=== PATIENT | female | born 1990 | race Caucasian/White ===

== ENCOUNTER → 2016-05-15 | Outpatient (CLI) | payer OTHER ==
[~2016-05-15] MED LIST: CLAR1TAB2 PO; DEPO INJECTION SC; GUMMCHW PO; HYDR12.55 PO; OMEP20TA PO; STELARA; STELARA SC
[2016-05-15 18:38] LABS: BASO % 0.5 % (0.0-1.0); EOS # 0.2 K/mm3 (0.0-0.50); EOS % 2.1 % (0.0-3.0); LARGE UNSTAINED CELL # 0.2 K/mm3 (0.0-0.4); LARGE UNSTAINED CELL % 2.3 % (0.0-4.0); LYMPH # 2.7 K/mm3 (1.5-6.5); LYMPH % 25.5 % (24.0-44.0); MEAN CORPUSCULAR HEMOGLOBIN 31.7 pg (27.0-33.0); MEAN CORPUSCULAR HGB CONC 34.4 g/dl (32.0-36.5); MEAN CORPUSCULAR VOLUME 92.1 fl (80.0-96.0); MONO # 0.5 K/mm3 (0.0-0.8); MONO % 4.3 % (0.0-5.0); NEUTROPHILS # 6.9 K/mm3 (1.8-7.7); NEUTROPHILS % 65.2 % (36.0-66.0); PLATELET COUNT, AUTOMATED 251 k/mm3 (150-450); RED CELL DISTRIBUTION WIDTH 11.9 % (11.5-14.5); WHITE BLOOD COUNT 10.6 K/mm3 (4.0-10.0)
[2016-05-15 19:07] LABS: ALBUMIN 3.8 GM/DL (3.2-5.2); ALBUMIN/GLOBULIN RATIO 1.09 (1.00-1.93); ALKALINE PHOSPHATASE 130 U/L (45-117); ALT/SGPT 29 U/L (12-78); ANION GAP 8 MEQ/L (8-16); AST/SGOT 13 U/L (15-37); BILIRUBIN,TOTAL 0.3 MG/DL (0.2-1.0); BLOOD UREA NITROGEN 13 MG/DL (7-18); CALCIUM LEVEL 9.6 MG/DL (8.5-10.1); CARBON DIOXIDE LEVEL 28 MEQ/L (21-32); CHLORIDE LEVEL 106 MEQ/L (98-107); CREATININE FOR GFR 0.69 MG/DL (0.55-1.02); FERRITIN 21 NG/ML (8-252); GAMMA GLUTAMYLTRANSPEPTIDASE 26 U/L (5-55); GLOMERULAR FILTRATION RATE > 60.0 (>60); GLUCOSE, FASTING 79 MG/DL (70-105); POTASSIUM SERUM 3.8 MEQ/L (3.5-5.1); SODIUM LEVEL 142 MEQ/L (136-145); TOTAL PROTEIN 7.3 GM/DL (6.4-8.2)
[2016-05-15 19:14] LABS: ERYTHROCYTE SEDIMENTATION RATE 41 mm/hr (0-20)
== END ==
LOC: M LAB 17:25
PROVIDERS: ATTEND Physician Assistant
DX: J01.90 Acute sinusitis, unspecified (principal); R53.83 Other fatigue; R74.0 Nonspecific elevation of levels of transaminase and lactic acid dehydrogenase [LDH]

== ENCOUNTER 2016-05-21 18:59 | Emergency (ER) | payer OTHER ==
[2016-05-21] MEDS ORDERED: ONDANSETRON 4MG/2ML VIAL (J2405) As Ordered ONE (21:44)
[2016-05-21] MEDS ORDERED: fentaNYL 100 MCG/2 ML INJECTION (J3010) As Ordered ONE (21:46)
[2016-05-21 21:56] LABS: BASO # 0.3 K/mm3 (0.0-0.2); BASO % 2.1 % (0.0-1.0); EOS # 0.3 K/mm3 (0.0-0.50); EOS % 2.2 % (0.0-3.0); LARGE UNSTAINED CELL # 0.2 K/mm3 (0.0-0.4); LARGE UNSTAINED CELL % 1.5 % (0.0-4.0); LYMPH # 4.4 K/mm3 (1.5-6.5); LYMPH % 28.3 % (24.0-44.0); MEAN CORPUSCULAR HEMOGLOBIN 30.7 pg (27.0-33.0); MEAN CORPUSCULAR HGB CONC 32.8 g/dl (32.0-36.5); MEAN CORPUSCULAR VOLUME 93.8 fl (80.0-96.0); MONO # 0.8 K/mm3 (0.0-0.8); MONO % 5.1 % (0.0-5.0); NEUTROPHILS % 60.8 % (36.0-66.0); PLATELET COUNT, AUTOMATED 298 k/mm3 (150-450); RED CELL DISTRIBUTION WIDTH 13.2 % (11.5-14.5); WHITE BLOOD COUNT 14.8 K/mm3 (4.0-10.0)
[2016-05-21] MEDS ORDERED: ISOVUE-370 76% 100ML VIAL (Q9967) As Ordered ONE (22:01)
[2016-05-21 22:39] LABS: ALBUMIN 3.9 GM/DL (3.2-5.2); ALKALINE PHOSPHATASE 121 U/L (45-117); ALT/SGPT 31 U/L (12-78); ANION GAP 10 MEQ/L (8-16); AST/SGOT 16 U/L (15-37); BILIRUBIN,DIRECT 0.1 MG/DL (0.0-0.2); BILIRUBIN,TOTAL 0.2 MG/DL (0.2-1.0); BLOOD UREA NITROGEN 19 MG/DL (7-18); CARBON DIOXIDE LEVEL 23 MEQ/L (21-32); CHLORIDE LEVEL 107 MEQ/L (98-107); CREATININE FOR GFR 0.73 MG/DL (0.55-1.02); GLOMERULAR FILTRATION RATE > 60.0 (>60); GLUCOSE, FASTING 86 MG/DL (70-105); POTASSIUM SERUM 4.1 MEQ/L (3.5-5.1); SODIUM LEVEL 140 MEQ/L (136-145); TOTAL PROTEIN 7.8 GM/DL (6.4-8.2)
--- NOTE | 2016-05-21 23:40 | REPUSA ---
CT of the abdomen and pelvis with contrast Clinical statement: Pain. Technique: Multiple axial CT images were obtained from the base of the lungs through the floor of the pelvis utilizing 5 mm axial slices after administration of nonionic intravenous contrast. Coronal an d sagittal reconstructions were also obtained. No comparison is available. Findings: Chest: The visualized lung bases are clear. Abdomen: The liver, spleen, pancreas, kidneys, and adrenal glands are unremarkable. The aorta is with in normal limits. There is no evidence of abdominal lymphadenopathy or ascites. Pelvis: The bowel is unremarkable, with no obstructive or inflammatory changes. The appendix is rob l. The urinary bladder is within normal limits. The other pelvic structures appear grossly intact. Th ere is no evidence of pelvic lymphadenopathy or ascites. Bones: There are no suspicious osseous abnormalities seen. Impression: Unremarkable CT examination of the abdomen and pelvis.
--- NOTE | 2016-05-22 00:24 | EDDOCDS ---
Physician Documentation [facility] Name: Goldie Gunter Age: 25 yrs Sex: Female : 1990 Arrival Date: 05/21/2016 Time: 18:59 Bed I5 / M5 Private MD: CHRISTA CARPENTER Disposition: 05/22/16 00:09 Discharged to Home/Self Care. Impression: Abdominal and pelvic pain - RUQ. - Condition is Stable. - Discharge Instructions: Abdominal Pain, Adult. - Medication Reconciliation, Local Pharmacy Hours form. - Follow up: CHRISTA CARPENTER; When: Call to arrange an appointment; Reason: Recheck today's complaints, Continuance of care. Follow up: Juventino Sanabria; When: Call to arrange an appointment; Reason: Recheck today's complaints, Continuance of care. - Problem is an acute exacerbation. - Symptoms have improved. - Notes: Keep hydrated Use Ibuprofen and Tylenol, as needed, for pain Return to the ED for any further concerns Historical: - Allergies: Morphineseizure; - Home Meds: 1. hydrochlorothiazide 12.5 mg Oral tab 1 tab once daily 2. omeprazole 20 mg Oral cpDR 1 cap 2 times per day - PMHx: GERD; Hypertension; psorasis; - PSHx: Cholecystectomy; baske procedure for kidney stone; - Social history: Smoking status: Patient states was never smoker of tobacco. No barriers to communication noted, The patient speaks fluent Bolivian, Speaks appropriately for age. - Family history: Not pertinent. - : The pt / caregiver states he / she is not on anticoagulants. Home medication list is obtained from the patient. - Exposure Risk Screening:: None identified. 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 3 in. (160.02 cm) (R); Pain 8/10; 22:30 Pain 2/10; dsf 22:31 BP 121 / 71; Pulse 86; Resp 18; Temp 98.3; Pulse Ox 96% ; Pain 2/10; ajs 05/22 00:20 BP 128 / 76; Pulse 94; Resp 20; Temp 97.8(TE); Pulse Ox 99% on R/A; Pain 5/10; dsf 05/21 19:01 Body Mass Index 41.63 (106.59 kg, 160.02 cm) gr2 MDM: 05/21 21:40 NS 0.9% 1000 ml IV at bolus once ordered. le 21:40 NS 0.9% 1000 ml IV at 100 mL/hr continuous ordered. le 21:40 Ondansetron 4 mg IVP once ordered. le 21:40 IV Saline Lock ordered. le 21:40 Undress patient appropriately for examination ordered. le 21:40 fentaNYL (PF) 25 mcg IVP once ordered. le 21:41 Basic Metabolic Profile Ordered. EDMS 21:41 CBC with Diff Ordered. EDMS 21:41 Lipase Ordered. EDMS 21:41 Liver Profile Ordered. EDMS 21:41 CT ABD & PELVIS: IV Contrast Only Ordered. EDMS 21:42 NOTHING BY MOUTH+DIET ordered. EDMS 22:42 Financial registration complete. ks 22:42 [facility] Payment Agreement was scanned into [employer] and attached to record. [email or web address] 22:47 Basic Metabolic Profile Reviewed. le 22:47 CBC with Diff Reviewed. le 22:47 Liver Profile Reviewed. le 22:47 Lipase Reviewed. le Administered Medications: 21:54 Drug: NS 0.9% 1000 ml [sodium chloride 0.9 % intravenous solution] Route: IV; Rate: af2 bolus; Site: left antecubital; 23:36 Follow up: IV Status: Completed infusion; IV Intake: 1000ml dsf 21:54 Drug: Ondansetron 4 mg [ondansetron HCl 2 mg/mL intravenous solution (2 mL)] Route: af2 IVP; Site: left antecubital; 21:54 Drug: fentaNYL (PF) 25 mcg [fentanyl (PF) 50 mcg/mL injection solution (0.5 mL)] Route: af2 IVP; Site: left antecubital; 22:30 Follow up: Pain 2/10 Adult dsf 23:36 Drug: NS 0.9% 1000 ml [sodium chloride 0.9 % injection solution] Route: IV; Rate: 100 dsf mL/hr; Site: left antecubital; 05/22 00:22 Follow up: IV Status: Infusion discontinued; IV Intake: 150ml dsf Signatures: Dispatcher [employer] EDDwayne Kimbrough, RN RN Vidya Betancourt, Kym Taylor RN RN dsf Crane, Kelsi, RN RN kc3 Cehri Gonzalez, Reg Reg ks16 Gia Felipe RN af2 The chart was reviewed and I authenticate all verbal orders and agree with the evaluation and treatment provided.Attachments: 05/21 22:42 [facility] Payment Agreement [email or web address] MTDD
--- NOTE | 2016-05-22 00:24 | EDDOCDS ---
Nurse's Notes [facility] Name: Goldie Gunter Age: 25 yrs Sex: Female : 1990 Arrival Date: 05/21/2016 Time: 18:59 Bed I5 / M5 Private MD: CHRISTA CARPENTER Diagnosis: Abdominal and pelvic pain-RUQ Presentation: 05/21 19:16 Presenting complaint: Patient states: pt states that 3 days ago had a call from her cz provider that her liver enzymes were elevated pt states history of liver enzymes intermittently being elevaed. today pt states increasing abdominal pain"feels like my liver is going to explode". Risk factors: the patient reports no vaginal bleeding. Adult Sepsis Screening: The patient does not have new or worsening altered mentation. Patient's respiratory rate is less than 22. Systolic blood pressure is greater than 100. Patient has a qSOFA score of 0- Negative Sepsis Screen. Suicide/Homicide risk assessment- the patient denies having any suicidal and/or homicidal ideations and does not present with any other emotional, behavioral or mental health complaints. Status: Patient is not a program services planner or dependent. Transition of care: patient was not received from another setting of care. 19:16 Acuity: SERA Level 3 cz 19:16 Method Of Arrival: Walkin/Carried/Asstd Triage Assessment: 19:20 General: Appears in no apparent distress. Pain: Location: abdomen Pain currently is 8 cz out of 10 on a pain scale. HIV screening NA for this visit Offered previously. 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 hydrochlorothiazide 12.5 mg Oral tab 1 tab once daily 2. omeprazole 20 mg Oral cpDR 1 cap 2 times per day - PMHx: GERD; Hypertension; psorasis; - PSHx: Cholecystectomy; baske procedure for kidney stone; - Social history: Smoking status: Patient states was never smoker of tobacco. No barriers to communication noted, The patient speaks fluent Palestinian, Speaks appropriately for age. - Family history: Not pertinent. - : The pt / caregiver states he / she is not on anticoagulants. Home medication list is obtained from the patient. - Exposure Risk Screening:: None identified. Screenin:54 Screening information is obtained from the patient. Fall risk: No risks identified. kc3 Assistance ADL's: requires no assistance with activities of daily living. Abuse/DV Screen: The patient / caregiver reports he/she is: not in a situation that causes fear, pain or injury. Nutritional screening: No deficits noted. home support is adequate. 05/22 00:20 Advance Directives: Currently, there is no health care proxy. dsf Assessment: 05/21 21:53 General: Appears in no apparent distress, comfortable, Behavior is appropriate for age, kc3 cooperative. Pain: Location: right upper quadrant. Neurological: Level of Consciousness is awake, alert, obeys commands, Oriented to person, place, time. Respiratory: Airway is patent Respiratory effort is even, unlabored. GI: Abdomen is obese, Reports upper abd pain, nausea. Derm: Skin is pink, warm & dry. Musculoskeletal: Circulation, motion, and sensation intact. 22:43 General: Appears in no apparent distress, comfortable, Behavior is appropriate for age, dsf cooperative. Pain: Location: right upper quadrant Pain currently is 2 out of 10 on a pain scale. Neurological: Level of Consciousness is awake, alert. Cardiovascular: Capillary refill < 3 seconds. Respiratory: Airway is patent Respiratory effort is even, unlabored, Respiratory pattern is regular, symmetrical. Derm: Skin is pink, warm & dry. 05/22 00:20 Adult Sepsis Screening: The patient does not have new or worsening altered mentation. dsf Patient's respiratory rate is less than 22. Systolic blood pressure is greater than 100. Patient has a qSOFA score of 0- Negative Sepsis Screen. General: Appears in no apparent distress, comfortable, Behavior is appropriate for age, cooperative. Pain: Location: right upper quadrant Pain currently is 5 out of 10 on a pain scale. Neurological: Level of Consciousness is awake, alert, Oriented to person, place, time. Cardiovascular: No deficits noted. Respiratory: No deficits noted. GI: Abdomen is obese, Bowel sounds present X 4 quads. Abd is soft and non tender X 4 quads. Derm: Skin is pink, warm & dry. Vital Signs: 05/21 19:01 BP 145 / 96; Pulse 112; Resp 18 S; Temp 98.7(O); Pulse Ox 98% on R/A; Weight 106.59 kg gr2 (R); Height 5 ft. 3 in. (160.02 cm) (R); Pain 8/10; 22:30 Pain 2/10; dsf 22:31 BP 121 / 71; Pulse 86; Resp 18; Temp 98.3; Pulse Ox 96% ; Pain 2/10; ajs 05/22 00:20 BP 128 / 76; Pulse 94; Resp 20; Temp 97.8(TE); Pulse Ox 99% on R/A; Pain 5/10; dsf 05/21 19:01 Body Mass Index 41.63 (106.59 kg, 160.02 cm) gr2 Vitals: 05/21 19: Log In Time: May 21, 2016 at 19:01. gr2 ED Course: 19:01 Patient visited by George Odonnell. gr2 19:01 CHRISTA CARPENTER is Private Physician. gr2 19:01 Patient moved to Waiting gr2 19:02 Patient visited by George Odonnell. gr2 19:02 Patient moved to Pre RCE gr2 19:19 Triage Initiated cz 21:08 Patient moved to Triage 1 mdr 21:28 [facility] le 21:31 Patient visited by Vidya Ball FNP. le 21:31 Patient visited by Vidya Ball FNP. le 21:41 Patient moved to I5 / sls1 21:52 Basic Metabolic Profile Sent. kc3 21:52 CBC with Diff Sent. kc3 21:52 Lipase Sent. kc3 21:52 Liver Profile Sent. kc3 21:53 Inserted saline lock: 20 gauge in left antecubital area and blood collected. The kc3 patient tolerated the procedure well. Labs drawn. (by ED staff). Sent per order to lab. 21:55 The patient / caregiver is instructed regarding the plan of care and ED course. kc3 22:31 Warm blanket given. ajs 22:32 Patient visited by Alaina Luna. ajs 22:42 [facility] Payment Agreement was scanned into [employer] and attached to record. ks16 22:44 Patient visited by Kym Torres RN. dsf 23:[address] dsf 23:08 Patient moved to I5 / dsf 23:44 Patient visited by Alaina Luna. ajs 05/22 00:08 CHRISTA CARPENTER is Referral Physician. le 00:09 Juventino Sanabria is Referral Physician. le 00:15 CT ABD & PELVIS: IV Contrast Only Returned. EDMS 00:20 Discontinued lock intact, bleeding controlled, pressure dressing applied, No dsf redness/swelling at site. No procedures done that require assistance. Administered Medications: 05/21 21:54 Drug: NS 0.9% 1000 ml [sodium chloride 0.9 % intravenous solution] Route: IV; Rate: af2 bolus; Site: left antecubital; 23:36 Follow up: IV Status: Completed infusion; IV Intake: 1000ml dsf 21:54 Drug: Ondansetron 4 mg [ondansetron HCl 2 mg/mL intravenous solution (2 mL)] Route: af2 IVP; Site: left antecubital; 21:54 Drug: fentaNYL (PF) 25 mcg [fentanyl (PF) 50 mcg/mL injection solution (0.5 mL)] Route: af2 IVP; Site: left antecubital; 22:30 Follow up: Pain 2/10 Adult dsf 23:36 Drug: NS 0.9% 1000 ml [sodium chloride 0.9 % injection solution] Route: IV; Rate: 100 dsf mL/hr; Site: left antecubital; 05/22 00:22 Follow up: IV Status: Infusion discontinued; IV Intake: 150ml dsf Intake: 05/21 23:36 IV: 1000.00ml; Total: 1000.00ml. dsf 05/22 00:22 IV: 150.00ml; Total: 1150.00ml. dsf Order Results: Lab Order: Basic Metabolic Profile; [facility] 05/21/16 21:45 Test: GLUCOSE, FASTING; Value: 86; Range: 70-105; Units: MG/DL; Status: F Test: BLOOD UREA NITROGEN; Value: 19; Range: 7-18; Abnormal: Above high normal; Units: MG/DL; Status: F Test: CREATININE FOR GFR; Value: 0.73; Range: 0.55-1.02; Units: MG/DL; Status: F Test: GLOMERULAR FILTRATION RATE; Value: > 60.0; Range: >60; Status: F Test: SODIUM LEVEL; Value: 140; Range: 136-145; Units: MEQ/L; Status: F Test: POTASSIUM SERUM; Value: 4.1; Range: 3.5-5.1; Units: MEQ/L; Status: F Test: CHLORIDE LEVEL; Value: 107; Range: 98-107; Units: MEQ/L; Status: F Test: CARBON DIOXIDE LEVEL; Value: 23; Range: 21-32; Units: MEQ/L; Status: F Test: ANION GAP; Value: 10; Range: 8-16; Units: MEQ/L; Status: F Test: CALCIUM LEVEL; Value: 9.0; Range: 8.5-10.1; Units: MG/DL; Status: F Test Note: ; Units are mL/min/1.73 m2 Chronic Kidney Disease Staging per NKF: Stage I & II GFR >=60 Normal to Mildly Decreased Stage III GFR 30-59 Moderately Decreased Stage IV GFR 15-29 Severely Decreased Stage V GFR <15 Very Little GFR Left ESRD GFR <15 on RAILROAD TRACK INSPECTOR Lab Order: CBC with Diff; SPEC'M 05/21/16 21:46 Test: WHITE BLOOD COUNT; Value: 14.8; Range: 4.0-10.0; Abnormal: Above high normal; Units: K/mm3; Status: F Test: RED BLOOD COUNT; Value: 4.83; Range: 4.00-5.40; Units: M/mm3; Status: F Test: HEMOGLOBIN; Value: 14.8; Range: 12.0-16.0; Units: g/dl; Status: F Test: HEMATOCRIT; Value: 45.3; Range: 36.0-47.0; Units: %; Status: F Test: MEAN CORPUSCULAR VOLUME; Value: 93.8; Range: 80.0-96.0; Units: fl; Status: F Test: MEAN CORPUSCULAR HEMOGLOBIN; Value: 30.7; Range: 27.0-33.0; Units: pg; Status: F Test: MEAN CORPUSCULAR HGB CONC; Value: 32.8; Range: 32.0-36.5; Units: g/dl; Status: F Test: RED CELL DISTRIBUTION WIDTH; Value: 13.2; Range: 11.5-14.5; Units: %; Status: F Test: PLATELET COUNT, AUTOMATED; Value: 298; Range: 150-450; Units: k/mm3; Status: F Test: NEUTROPHILS %; Value: 60.8; Range: 36.0-66.0; Units: %; Status: F Test: LYMPH %; Value: 28.3; Range: 24.0-44.0; Units: %; Status: F Test: MONO %; Value: 5.1; Range: 0.0-5.0; Abnormal: Above high normal; Units: %; Status: F Test: EOS %; Value: 2.2; Range: 0.0-3.0; Units: %; Status: F Test: BASO %; Value: 2.1; Range: 0.0-1.0; Abnormal: Above high normal; Units: %; Status: F Test: LARGE UNSTAINED CELL %; Value: 1.5; Range: 0.0-4.0; Units: %; Status: F Test: NEUTROPHILS #; Value: 9.0; Range: 1.8-7.7; Abnormal: Above high normal; Units: K/mm3; Status: F Test: LYMPH #; Value: 4.4; Range: 1.5-6.5; Units: K/mm3; Status: F Test: MONO #; Value: 0.8; Range: 0.0-0.8; Units: K/mm3; Status: F Test: EOS #; Value: 0.3; Range: 0.0-0.50; Units: K/mm3; Status: F Test: BASO #; Value: 0.3; Range: 0.0-0.2; Abnormal: Above high normal; Units: K/mm3; Status: F Test: LARGE UNSTAINED CELL #; Value: 0.2; Range: 0.0-0.4; Units: K/mm3; Status: F Lab Order: Lipase; SPEC'M 05/21/16 21:45 Test: LIPASE; Value: 160; Range: 73-393; Units: U/L; Status: F Lab Order: Liver Profile; SPEC'M 05/21/16 21:45 Test: AST/SGOT; Value: 16; Range: 15-37; Units: U/L; Status: F Test: ALT/SGPT; Value: 31; Range: 12-78; Units: U/L; Status: F Test: ALKALINE PHOSPHATASE; Value: 121; Range: 45-117; Abnormal: Above high normal; Units: U/L; Status: F Test: BILIRUBIN,TOTAL; Value: 0.2; Range: 0.2-1.0; Units: MG/DL; Status: F Test: BILIRUBIN,DIRECT; Value: 0.1; Range: 0.0-0.2; Units: MG/DL; Status: F Test: TOTAL PROTEIN; Value: 7.8; Range: 6.4-8.2; Units: GM/DL; Status: F Test: ALBUMIN; Value: 3.9; Range: 3.2-5.2; Units: GM/DL; Status: F Test: ALBUMIN/GLOBULIN RATIO; Value: 1.00; Range: 1.00-1.93; Status: F Radiology Order: CT ABD & PELVIS: IV Contrast Only Test: CT ABD & PELVIS: IV Contrast Only REASON FOR EXAMINATION: elev liver enzymes, pain; ; CT of the abdomen and pelvis with contrast; Clinical statement: Pain.; Technique: Multiple axial CT images were obtained from the base of the lungs through the floor of the; pelvis utilizing 5 mm axial slices after administration of nonionic intravenous contrast. Coronal an; d sagittal reconstructions were also obtained.; No comparison is available.; Findings:; Chest: The visualized lung bases are clear.; Abdomen: The liver, spleen, pancreas, kidneys, and adrenal glands are unremarkable. The aorta is with; in normal limits. There is no evidence of abdominal lymphadenopathy or ascites.; Pelvis: The bowel is unremarkable, with no obstructive or inflammatory changes. The appendix is rob; l. The urinary bladder is within normal limits. The other pelvic structures appear grossly intact. Th; ere is no evidence of pelvic lymphadenopathy or ascites.; Bones: There are no suspicious osseous abnormalities seen.; Impression: Unremarkable CT examination of the abdomen and pelvis.; ; Outcome: 00:09 Discharge ordered by Provider. le 00:20 Discharge Assessment: Patient awake, alert and oriented x 3. No cognitive and/or dsf functional deficits noted. Patient verbalized understanding of disposition instructions. patient administered narcotics - yes. Pt provided with safe discharge. The following High Risk Discharge criteria are identified: None. Discharged to home ambulatory, with significant other. Condition: stable. Discharge instructions given to patient, Instructed on discharge instructions, follow up and referral plans. medication usage, Demonstrated understanding of instructions, Pt was receptive of discharge instructions/ teaching. CT Study completed. Property sent home with patient. 00:23 Patient left the ED. dsf Signatures: Dispatcher [employer] EDDwayne Kimbrough, RN RN cz Vidya Ball, BUSGIRL Kym Jones RN RN dsf Alaina Luna Shannon RN RN sls1 George Odonnell gr2 Gia FelipeRN RN af2 Dylon Merritt, CHRISTINA GUSSET MAKER Katty Mendosa RN RN kc3 Cheri Gonzalez, Reg Reg ks16 MTDD
--- NOTE | 2016-05-24 01:24 | EDDOCDS ---
Physician Documentation [facility] Name: Goldie Gunter Age: 25 yrs Sex: Female : 1990 Arrival Date: 05/21/2016 Time: 18:59 Bed I5 / M5 Private MD: CHRISTA CARPENTER Disposition: 05/22/16 00:09 Discharged to Home/Self Care. Impression: Abdominal and pelvic pain - RUQ. - Condition is Stable. - Discharge Instructions: Abdominal Pain, Adult. - Medication Reconciliation, Local Pharmacy Hours form. - Follow up: CHRISTA CARPENTER; When: Call to arrange an appointment; Reason: Recheck today's complaints, Continuance of care. Follow up: Juventino Sanabria; When: Call to arrange an appointment; Reason: Recheck today's complaints, Continuance of care. - Problem is an acute exacerbation. - Symptoms have improved. - Notes: Keep hydrated Use Ibuprofen and Tylenol, as needed, for pain Return to the ED for any further concerns Historical: - Allergies: Morphineseizure; - Home Meds: 1. hydrochlorothiazide 12.5 mg Oral tab 1 tab once daily 2. omeprazole 20 mg Oral cpDR 1 cap 2 times per day - PMHx: GERD; Hypertension; psorasis; - PSHx: Cholecystectomy; baske procedure for kidney stone; - Social history: Smoking status: Patient states was never smoker of tobacco. No barriers to communication noted, The patient speaks fluent [place] Islander, Speaks appropriately for age. - Family history: Not pertinent. - : The pt / caregiver states he / she is not on anticoagulants. Home medication list is obtained from the patient. - Exposure Risk Screening:: None identified. 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 3 in. (160.02 cm) (R); Pain 8/10; 22:30 Pain 2/10; dsf 22:31 BP 121 / 71; Pulse 86; Resp 18; Temp 98.3; Pulse Ox 96% ; Pain 2/10; ajs 05/22 00:20 BP 128 / 76; Pulse 94; Resp 20; Temp 97.8(TE); Pulse Ox 99% on R/A; Pain 5/10; dsf 05/21 19:01 Body Mass Index 41.63 (106.59 kg, 160.02 cm) gr2 MDM: 05/21 21:40 NS 0.9% 1000 ml IV at bolus once ordered. le 21:40 NS 0.9% 1000 ml IV at 100 mL/hr continuous ordered. le 21:40 Ondansetron 4 mg IVP once ordered. le 21:40 IV Saline Lock ordered. le 21:40 Undress patient appropriately for examination ordered. le 21:40 fentaNYL (PF) 25 mcg IVP once ordered. le 21:41 Basic Metabolic Profile Ordered. EDMS 21:41 CBC with Diff Ordered. EDMS 21:41 Lipase Ordered. EDMS 21:41 Liver Profile Ordered. EDMS 21:41 CT ABD & PELVIS: IV Contrast Only Ordered. EDMS 21:42 NOTHING BY MOUTH+DIET ordered. EDMS 22:42 Financial registration complete. [facility] 22:42 [facility] Payment Agreement was scanned into [employer] and attached to record. [email or web address] 22:47 Basic Metabolic Profile Reviewed. le 22:47 CBC with Diff Reviewed. le 22:47 Liver Profile Reviewed. le 22:47 Lipase Reviewed. le 05/22 11:31 T-Sheet-- Draft Copy was scanned into [employer] and attached to record. gb Administered Medications: 05/21 21:54 Drug: NS 0.9% 1000 ml [sodium chloride 0.9 % intravenous solution] Route: IV; Rate: af2 bolus; Site: left antecubital; 23:36 Follow up: IV Status: Completed infusion; IV Intake: 1000ml dsf 21:54 Drug: Ondansetron 4 mg [ondansetron HCl 2 mg/mL intravenous solution (2 mL)] Route: af2 IVP; Site: left antecubital; 21:54 Drug: fentaNYL (PF) 25 mcg [fentanyl (PF) 50 mcg/mL injection solution (0.5 mL)] Route: af2 IVP; Site: left antecubital; 22:30 Follow up: Pain 2/10 Adult dsf 23:36 Drug: NS 0.9% 1000 ml [sodium chloride 0.9 % injection solution] Route: IV; Rate: 100 dsf mL/hr; Site: left antecubital; 05/22 00:22 Follow up: IV Status: Infusion discontinued; IV Intake: 150ml dsf Signatures: Dispatcher [employer] Dwayne Kendall RN RN cz Barnhardt, Gloria, Reg Reg gb Vidya Ball, SUPERVISOR SIGN SHOP Kym Jones RN RN dsf Crane, Kelsi, RN RN kc3 Cheri Gonzalez, Reg Reg ks16 Gia Felipe RN af2 The chart was reviewed and I authenticate all verbal orders and agree with the evaluation and treatment provided.Attachments: 05/21 22:42 [facility] Payment Agreement [email or web address] 05/22 11:31 T-Sheet-- Draft Copy gb Chart Complete MTDD
--- NOTE | 2016-05-24 01:24 | EDDOCDS ---
Physician Documentation [facility] Name: Goldie Gunter Age: 25 yrs Sex: Female : 1990 Arrival Date: 05/21/2016 Time: 18:59 Bed I5 / M5 Private MD: CHRISTA CARPENTER Disposition: 05/22/16 00:09 Discharged to Home/Self Care. Impression: Abdominal and pelvic pain - RUQ. - Condition is Stable. - Discharge Instructions: Abdominal Pain, Adult. - Medication Reconciliation, Local Pharmacy Hours form. - Follow up: CHRISTA CARPENTER; When: Call to arrange an appointment; Reason: Recheck today's complaints, Continuance of care. Follow up: Juventino Sanabria; When: Call to arrange an appointment; Reason: Recheck today's complaints, Continuance of care. - Problem is an acute exacerbation. - Symptoms have improved. - Notes: Keep hydrated Use Ibuprofen and Tylenol, as needed, for pain Return to the ED for any further concerns Historical: - Allergies: Morphineseizure; - Home Meds: 1. hydrochlorothiazide 12.5 mg Oral tab 1 tab once daily 2. omeprazole 20 mg Oral cpDR 1 cap 2 times per day - PMHx: GERD; Hypertension; psorasis; - PSHx: Cholecystectomy; baske procedure for kidney stone; - Social history: Smoking status: Patient states was never smoker of tobacco. No barriers to communication noted, The patient speaks fluent Guatemalan, Speaks appropriately for age. - Family history: Not pertinent. - : The pt / caregiver states he / she is not on anticoagulants. Home medication list is obtained from the patient. - Exposure Risk Screening:: None identified. 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 3 in. (160.02 cm) (R); Pain 8/10; 22:30 Pain 2/10; dsf 22:31 BP 121 / 71; Pulse 86; Resp 18; Temp 98.3; Pulse Ox 96% ; Pain 2/10; ajs 05/22 00:20 BP 128 / 76; Pulse 94; Resp 20; Temp 97.8(TE); Pulse Ox 99% on R/A; Pain 5/10; dsf 05/21 19:01 Body Mass Index 41.63 (106.59 kg, 160.02 cm) gr2 MDM: 05/21 21:40 NS 0.9% 1000 ml IV at bolus once ordered. le 21:40 NS 0.9% 1000 ml IV at 100 mL/hr continuous ordered. le 21:40 Ondansetron 4 mg IVP once ordered. le 21:40 IV Saline Lock ordered. le 21:40 Undress patient appropriately for examination ordered. le 21:40 fentaNYL (PF) 25 mcg IVP once ordered. le 21:41 Basic Metabolic Profile Ordered. EDMS 21:41 CBC with Diff Ordered. EDMS 21:41 Lipase Ordered. EDMS 21:41 Liver Profile Ordered. EDMS 21:41 CT ABD & PELVIS: IV Contrast Only Ordered. EDMS 21:42 NOTHING BY MOUTH+DIET ordered. EDMS 22:42 Financial registration complete. [facility] 22:42 [facility] Payment Agreement was scanned into Vontu and attached to record. ks16 22:47 Basic Metabolic Profile Reviewed. le 22:47 CBC with Diff Reviewed. le 22:47 Liver Profile Reviewed. le 22:47 Lipase Reviewed. le 05/22 11:31 T-Sheet-- Draft Copy was scanned into Vontu and attached to record. gb Administered Medications: 05/21 21:54 Drug: NS 0.9% 1000 ml [sodium chloride 0.9 % intravenous solution] Route: IV; Rate: af2 bolus; Site: left antecubital; 23:36 Follow up: IV Status: Completed infusion; IV Intake: 1000ml dsf 21:54 Drug: Ondansetron 4 mg [ondansetron HCl 2 mg/mL intravenous solution (2 mL)] Route: af2 IVP; Site: left antecubital; 21:54 Drug: fentaNYL (PF) 25 mcg [fentanyl (PF) 50 mcg/mL injection solution (0.5 mL)] Route: af2 IVP; Site: left antecubital; 22:30 Follow up: Pain 2/10 Adult dsf 23:36 Drug: NS 0.9% 1000 ml [sodium chloride 0.9 % injection solution] Route: IV; Rate: 100 dsf mL/hr; Site: left antecubital; 05/22 00:22 Follow up: IV Status: Infusion discontinued; IV Intake: 150ml dsf Signatures: Dispatcher MedHost Dwayne Kendall RN RN cz Barnhardt, Gloria, Reg Reg gb Vidya Ball, AWNING MAKER AND INSTALLER Kym Jones RN RN dsf Crane, Kelsi, RN RN kc3 Cheri Gonzalez, Reg Reg ks16 Gia Felipe RN af2 The chart was reviewed and I authenticate all verbal orders and agree with the evaluation and treatment provided.Attachments: 05/21 22:42 [facility] [place] [facility] Payment Agreement [email or web address] 05/22 11:31 T-Sheet-- Draft Copy gb Chart Complete MTDD
--- NOTE | 2016-05-24 01:24 | EDDOCDS ---
Nurse's Notes [facility] Name: Goldie Gunter Age: 25 yrs Sex: Female : 1990 Arrival Date: 05/21/2016 Time: 18:59 Bed I5 / M5 Private MD: CHRISTA CARPENTER Diagnosis: Abdominal and pelvic pain-RUQ Presentation: 05/21 19:16 Presenting complaint: Patient states: pt states that 3 days ago had a call from her cz provider that her liver enzymes were elevated pt states history of liver enzymes intermittently being elevaed. today pt states increasing abdominal pain"feels like my liver is going to explode". Risk factors: the patient reports no vaginal bleeding. Adult Sepsis Screening: The patient does not have new or worsening altered mentation. Patient's respiratory rate is less than 22. Systolic blood pressure is greater than 100. Patient has a qSOFA score of 0- Negative Sepsis Screen. Suicide/Homicide risk assessment- the patient denies having any suicidal and/or homicidal ideations and does not present with any other emotional, behavioral or mental health complaints. Status: Patient is not a service learning coordinator or dependent. Transition of care: patient was not received from another setting of care. 19:16 Acuity: SERA Level 3 cz 19:16 Method Of Arrival: Walkin/Carried/Asstd Triage Assessment: 19:20 General: Appears in no apparent distress. Pain: Location: abdomen Pain currently is 8 cz out of 10 on a pain scale. HIV screening NA for this visit Offered previously. 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 hydrochlorothiazide 12.5 mg Oral tab 1 tab once daily 2. omeprazole 20 mg Oral cpDR 1 cap 2 times per day - PMHx: GERD; Hypertension; psorasis; - PSHx: Cholecystectomy; baske procedure for kidney stone; - Social history: Smoking status: Patient states was never smoker of tobacco. No barriers to communication noted, The patient speaks fluent Kuwaiti, Speaks appropriately for age. - Family history: Not pertinent. - : The pt / caregiver states he / she is not on anticoagulants. Home medication list is obtained from the patient. - Exposure Risk Screening:: None identified. Screenin:54 Screening information is obtained from the patient. Fall risk: No risks identified. kc3 Assistance ADL's: requires no assistance with activities of daily living. Abuse/DV Screen: The patient / caregiver reports he/she is: not in a situation that causes fear, pain or injury. Nutritional screening: No deficits noted. home support is adequate. 05/22 00:20 Advance Directives: Currently, there is no health care proxy. dsf Assessment: 05/21 21:53 General: Appears in no apparent distress, comfortable, Behavior is appropriate for age, kc3 cooperative. Pain: Location: right upper quadrant. Neurological: Level of Consciousness is awake, alert, obeys commands, Oriented to person, place, time. Respiratory: Airway is patent Respiratory effort is even, unlabored. GI: Abdomen is obese, Reports upper abd pain, nausea. Derm: Skin is pink, warm & dry. Musculoskeletal: Circulation, motion, and sensation intact. 22:43 General: Appears in no apparent distress, comfortable, Behavior is appropriate for age, dsf cooperative. Pain: Location: right upper quadrant Pain currently is 2 out of 10 on a pain scale. Neurological: Level of Consciousness is awake, alert. Cardiovascular: Capillary refill < 3 seconds. Respiratory: Airway is patent Respiratory effort is even, unlabored, Respiratory pattern is regular, symmetrical. Derm: Skin is pink, warm & dry. 05/22 00:20 Adult Sepsis Screening: The patient does not have new or worsening altered mentation. dsf Patient's respiratory rate is less than 22. Systolic blood pressure is greater than 100. Patient has a qSOFA score of 0- Negative Sepsis Screen. General: Appears in no apparent distress, comfortable, Behavior is appropriate for age, cooperative. Pain: Location: right upper quadrant Pain currently is 5 out of 10 on a pain scale. Neurological: Level of Consciousness is awake, alert, Oriented to person, place, time. Cardiovascular: No deficits noted. Respiratory: No deficits noted. GI: Abdomen is obese, Bowel sounds present X 4 quads. Abd is soft and non tender X 4 quads. Derm: Skin is pink, warm & dry. Vital Signs: 05/21 19:01 BP 145 / 96; Pulse 112; Resp 18 S; Temp 98.7(O); Pulse Ox 98% on R/A; Weight 106.59 kg gr2 (R); Height 5 ft. 3 in. (160.02 cm) (R); Pain 8/10; 22:30 Pain 2/10; dsf 22:31 BP 121 / 71; Pulse 86; Resp 18; Temp 98.3; Pulse Ox 96% ; Pain 2/10; ajs 05/22 00:20 BP 128 / 76; Pulse 94; Resp 20; Temp 97.8(TE); Pulse Ox 99% on R/A; Pain 5/10; dsf 05/21 19:01 Body Mass Index 41.63 (106.59 kg, 160.02 cm) gr2 Vitals: 05/21 19: Log In Time: May 21, 2016 at 19:01. gr2 ED Course: 19:01 Patient visited by George Odonnell. gr2 19:01 CHRISTA CARPENTER is Private Physician. gr2 19:01 Patient moved to Waiting gr2 19:02 Patient visited by George Odonnell. gr2 19:02 Patient moved to Pre RCE gr2 19:19 Triage Initiated cz 21:08 Patient moved to Triage 1 mdr 21:28 [facility] le 21:31 Patient visited by Vidya Ball FNP. le 21:31 Patient visited by Vidya Ball FNP. le 21:41 Patient moved to I5 / sls1 21:52 Basic Metabolic Profile Sent. kc3 21:52 CBC with Diff Sent. kc3 21:52 Lipase Sent. kc3 21:52 Liver Profile Sent. kc3 21:53 Inserted saline lock: 20 gauge in left antecubital area and blood collected. The kc3 patient tolerated the procedure well. Labs drawn. (by ED staff). Sent per order to lab. 21:55 The patient / caregiver is instructed regarding the plan of care and ED course. kc3 22:31 Warm blanket given. ajs 22:32 Patient visited by Alaina Luna. ajs 22:42 [facility] Payment Agreement was scanned into ink[employer] and attached to record. ks16 22:44 Patient visited by Kym Torres RN. dsf 23:[address] dsf 23:08 Patient moved to I5 / dsf 23:44 Patient visited by Alaina Luna. ajs 05/22 00:08 CHRISTA CARPENTER is Referral Physician. le 00:09 Juventino Sanabria is Referral Physician. le 00:15 CT ABD & PELVIS: IV Contrast Only Returned. EDMS 00:20 Discontinued lock intact, bleeding controlled, pressure dressing applied, No dsf redness/swelling at site. No procedures done that require assistance. 11:31 T-Sheet-- Draft Copy was scanned into [employer] and attached to record. gb Administered Medications: 05/21 21:54 Drug: NS 0.9% 1000 ml [sodium chloride 0.9 % intravenous solution] Route: IV; Rate: af2 bolus; Site: left antecubital; 23:36 Follow up: IV Status: Completed infusion; IV Intake: 1000ml dsf 21:54 Drug: Ondansetron 4 mg [ondansetron HCl 2 mg/mL intravenous solution (2 mL)] Route: af2 IVP; Site: left antecubital; 21:54 Drug: fentaNYL (PF) 25 mcg [fentanyl (PF) 50 mcg/mL injection solution (0.5 mL)] Route: af2 IVP; Site: left antecubital; 22:30 Follow up: Pain 2/10 Adult dsf 23:36 Drug: NS 0.9% 1000 ml [sodium chloride 0.9 % injection solution] Route: IV; Rate: 100 dsf mL/hr; Site: left antecubital; 05/22 00:22 Follow up: IV Status: Infusion discontinued; IV Intake: 150ml dsf Intake: 05/21 23:36 IV: 1000.00ml; Total: 1000.00ml. dsf 05/22 00:22 IV: 150.00ml; Total: 1150.00ml. dsf Order Results: Lab Order: Basic Metabolic Profile; SPEC'M 05/21/16 21:45 Test: GLUCOSE, FASTING; Value: 86; Range: 70-105; Units: MG/DL; Status: F Test: BLOOD UREA NITROGEN; Value: 19; Range: 7-18; Abnormal: Above high normal; Units: MG/DL; Status: F Test: CREATININE FOR GFR; Value: 0.73; Range: 0.55-1.02; Units: MG/DL; Status: F Test: GLOMERULAR FILTRATION RATE; Value: > 60.0; Range: >60; Status: F Test: SODIUM LEVEL; Value: 140; Range: 136-145; Units: MEQ/L; Status: F Test: POTASSIUM SERUM; Value: 4.1; Range: 3.5-5.1; Units: MEQ/L; Status: F Test: CHLORIDE LEVEL; Value: 107; Range: 98-107; Units: MEQ/L; Status: F Test: CARBON DIOXIDE LEVEL; Value: 23; Range: 21-32; Units: MEQ/L; Status: F Test: ANION GAP; Value: 10; Range: 8-16; Units: MEQ/L; Status: F Test: CALCIUM LEVEL; Value: 9.0; Range: 8.5-10.1; Units: MG/DL; Status: F Test Note: ; Units are mL/min/1.73 m2 Chronic Kidney Disease Staging per NKF: Stage I & II GFR >=60 Normal to Mildly Decreased Stage III GFR 30-59 Moderately Decreased Stage IV GFR 15-29 Severely Decreased Stage V GFR <15 Very Little GFR Left ESRD GFR <15 on WILLOW WORKER Lab Order: CBC with Diff; SPEC'M 05/21/16 21:46 Test: WHITE BLOOD COUNT; Value: 14.8; Range: 4.0-10.0; Abnormal: Above high normal; Units: K/mm3; Status: F Test: RED BLOOD COUNT; Value: 4.83; Range: 4.00-5.40; Units: M/mm3; Status: F Test: HEMOGLOBIN; Value: 14.8; Range: 12.0-16.0; Units: g/dl; Status: F Test: HEMATOCRIT; Value: 45.3; Range: 36.0-47.0; Units: %; Status: F Test: MEAN CORPUSCULAR VOLUME; Value: 93.8; Range: 80.0-96.0; Units: fl; Status: F Test: MEAN CORPUSCULAR HEMOGLOBIN; Value: 30.7; Range: 27.0-33.0; Units: pg; Status: F Test: MEAN CORPUSCULAR HGB CONC; Value: 32.8; Range: 32.0-36.5; Units: g/dl; Status: F Test: RED CELL DISTRIBUTION WIDTH; Value: 13.2; Range: 11.5-14.5; Units: %; Status: F Test: PLATELET COUNT, AUTOMATED; Value: 298; Range: 150-450; Units: k/mm3; Status: F Test: NEUTROPHILS %; Value: 60.8; Range: 36.0-66.0; Units: %; Status: F Test: LYMPH %; Value: 28.3; Range: 24.0-44.0; Units: %; Status: F Test: MONO %; Value: 5.1; Range: 0.0-5.0; Abnormal: Above high normal; Units: %; Status: F Test: EOS %; Value: 2.2; Range: 0.0-3.0; Units: %; Status: F Test: BASO %; Value: 2.1; Range: 0.0-1.0; Abnormal: Above high normal; Units: %; Status: F Test: LARGE UNSTAINED CELL %; Value: 1.5; Range: 0.0-4.0; Units: %; Status: F Test: NEUTROPHILS #; Value: 9.0; Range: 1.8-7.7; Abnormal: Above high normal; Units: K/mm3; Status: F Test: LYMPH #; Value: 4.4; Range: 1.5-6.5; Units: K/mm3; Status: F Test: MONO #; Value: 0.8; Range: 0.0-0.8; Units: K/mm3; Status: F Test: EOS #; Value: 0.3; Range: 0.0-0.50; Units: K/mm3; Status: F Test: BASO #; Value: 0.3; Range: 0.0-0.2; Abnormal: Above high normal; Units: K/mm3; Status: F Test: LARGE UNSTAINED CELL #; Value: 0.2; Range: 0.0-0.4; Units: K/mm3; Status: F Lab Order: Lipase; SPEC'M 05/21/16 21:45 Test: LIPASE; Value: 160; Range: 73-393; Units: U/L; Status: F Lab Order: Liver Profile; SPEC'M 05/21/16 21:45 Test: AST/SGOT; Value: 16; Range: 15-37; Units: U/L; Status: F Test: ALT/SGPT; Value: 31; Range: 12-78; Units: U/L; Status: F Test: ALKALINE PHOSPHATASE; Value: 121; Range: 45-117; Abnormal: Above high normal; Units: U/L; Status: F Test: BILIRUBIN,TOTAL; Value: 0.2; Range: 0.2-1.0; Units: MG/DL; Status: F Test: BILIRUBIN,DIRECT; Value: 0.1; Range: 0.0-0.2; Units: MG/DL; Status: F Test: TOTAL PROTEIN; Value: 7.8; Range: 6.4-8.2; Units: GM/DL; Status: F Test: ALBUMIN; Value: 3.9; Range: 3.2-5.2; Units: GM/DL; Status: F Test: ALBUMIN/GLOBULIN RATIO; Value: 1.00; Range: 1.00-1.93; Status: F Radiology Order: CT ABD & PELVIS: IV Contrast Only Test: CT ABD & PELVIS: IV Contrast Only REASON FOR EXAMINATION: elev liver enzymes, pain; ; CT of the abdomen and pelvis with contrast; Clinical statement: Pain.; Technique: Multiple axial CT images were obtained from the base of the lungs through the floor of the; pelvis utilizing 5 mm axial slices after administration of nonionic intravenous contrast. Coronal an; d sagittal reconstructions were also obtained.; No comparison is available.; Findings:; Chest: The visualized lung bases are clear.; Abdomen: The liver, spleen, pancreas, kidneys, and adrenal glands are unremarkable. The aorta is with; in normal limits. There is no evidence of abdominal lymphadenopathy or ascites.; Pelvis: The bowel is unremarkable, with no obstructive or inflammatory changes. The appendix is rob; l. The urinary bladder is within normal limits. The other pelvic structures appear grossly intact. Th; ere is no evidence of pelvic lymphadenopathy or ascites.; Bones: There are no suspicious osseous abnormalities seen.; Impression: Unremarkable CT examination of the abdomen and pelvis.; ; Outcome: 00:09 Discharge ordered by Provider. le 00:20 Discharge Assessment: Patient awake, alert and oriented x 3. No cognitive and/or dsf functional deficits noted. Patient verbalized understanding of disposition instructions. patient administered narcotics - yes. Pt provided with safe discharge. The following High Risk Discharge criteria are identified: None. Discharged to home ambulatory, with significant other. Condition: stable. Discharge instructions given to patient, Instructed on discharge instructions, follow up and referral plans. medication usage, Demonstrated understanding of instructions, Pt was receptive of discharge instructions/ teaching. CT Study completed. Property sent home with patient. 00:23 Patient left the ED. dsf Signatures: Dispatcher MedHost EDMS Dwayne Mercado, RN RN cz Dilcia Gaming, Reg Reg gb Vidya Ball, HIGH SCHOOL TUTOR HIGH SCHOOL TUTOR Kym Mosquera,RN RN dsf Alaina Luna Shannon, RN RN sls1 George Odonnell gr2 Gia FelipeRN RN af2 Dylon Merritt, OPTIONS ADVISOR OPTIONS ADVISOR Katty Mendosa RN RN kc3 Cheri Gonzalez, Reg Reg ks16 Chart Complete MTDD
== END 2016-05-22 00:23 | disposition home or self-care (01) ==
LOC: M ED 18:59
DX: R10.11 Right upper quadrant pain (principal); K21.9 Gastro-esophageal reflux disease without esophagitis; I10 Essential (primary) hypertension; L40.9 Psoriasis, unspecified; Z79.899 Other long term (current) drug therapy; Z88.8 Allergy status to other drugs, medicaments and biological substances
CPT/HCPCS: 36415; 74177; 80048; 80076; 83690; 85025; 96361; 96374; 96375; 99284; J2405; J3010; Q9967

== ENCOUNTER 2016-07-14 13:47 | Emergency (ER) | payer OTHER ==
[~2016-07-14] VITALS: Ht 160 cm; Wt 105.2 kg
[2016-07-14] MEDS ORDERED: ONDANSETRON 4 MG ORAL DISINTEGRATING TAB (S0181) PO ONE (16:15)
[2016-07-14] MEDS ORDERED: ACETAMINOPHEN 325 MG TAB PO ONE (16:15)
[2016-07-14 16:24] LABS: BASO % 0.3 % (0.0-1.0); EOS # 0.2 K/mm3 (0.0-0.50); LARGE UNSTAINED CELL # 0.1 K/mm3 (0.0-0.4); LYMPH # 2.4 K/mm3 (1.5-6.5); LYMPH % 24.1 % (24.0-44.0); MEAN CORPUSCULAR HEMOGLOBIN 32.4 pg (27.0-33.0); MEAN CORPUSCULAR HGB CONC 34.5 g/dl (32.0-36.5); MONO # 0.5 K/mm3 (0.0-0.8); MONO % 5.5 % (0.0-5.0); NEUTROPHILS # 6.5 K/mm3 (1.8-7.7); NEUTROPHILS % 67.1 % (36.0-66.0); PLATELET COUNT, AUTOMATED 229 k/mm3 (150-450); RED CELL DISTRIBUTION WIDTH 12.7 % (11.5-14.5); WHITE BLOOD COUNT 9.7 K/mm3 (4.0-10.0)
[2016-07-14 16:27] LABS: CONTROL LINE UCG INT CTR LINE PRESENT
[2016-07-14 17:54] LABS: ALBUMIN 3.7 GM/DL (3.2-5.2); ALBUMIN/GLOBULIN RATIO 1.12 (1.00-1.93); ALKALINE PHOSPHATASE 111 U/L (45-117); ALT/SGPT 31 U/L (12-78); ANION GAP 8 MEQ/L (8-16); AST/SGOT 30 U/L (15-37); BILIRUBIN,DIRECT 0.1 MG/DL (0.0-0.2); BILIRUBIN,TOTAL 0.5 MG/DL (0.2-1.0); BLOOD UREA NITROGEN 8 MG/DL (7-18); CALCIUM LEVEL 8.5 MG/DL (8.5-10.1); CARBON DIOXIDE LEVEL 27 MEQ/L (21-32); CHLORIDE LEVEL 108 MEQ/L (98-107); CREATININE FOR GFR 0.63 MG/DL (0.55-1.02); GLOMERULAR FILTRATION RATE > 60.0 (>60); GLUCOSE, FASTING 87 MG/DL (70-105); SODIUM LEVEL 143 MEQ/L (136-145)
[2016-07-14 17:55] LABS: POTASSIUM SERUM 4.4 MEQ/L (3.5-5.1)
[2016-07-14] MEDS ORDERED: ZOFR4TAB3 PO (18:18)
[2016-07-14 18:21] VITALS: BP 128/82
[2016-07-14] MEDS ORDERED: MAGNESIUM CITRATE 300 ML BTL PO ONE (18:30)
--- NOTE | 2016-07-15 08:37 | REP ---
ABDOMINAL SERIES RADIOGRAPHS: CLINICAL: Right sided abdominal pain. TECHNIQUE: Upright and supine views of the abdomen and pelvis. FINDINGS: Upright view of the abdomen demonstrates no free air below the diaphragm to suspect pneumoperitoneum and no evidence for bowel obstruction. The bowel gas pattern is relatively nonspecific. No organomegaly. No abnormal calcifications. Skeletal structures are intact. Evidence for prior cholecystectomy. IMPRESSION: Nonspecific abdominal series radiographs. Signed by Carlos Melendez MD 07/19/2016 11:05 A
== END 2016-07-14 18:24 | disposition home or self-care (01) ==
LOC: M ED 15:40
DX: K59.00 Constipation, unspecified (principal); R11.0 Nausea; K21.9 Gastro-esophageal reflux disease without esophagitis; L43.9 Lichen planus, unspecified; Z87.442 Personal history of urinary calculi; Z88.5 Allergy status to narcotic agent; Z79.899 Other long term (current) drug therapy

== ENCOUNTER 2016-09-26 13:54 | Emergency (ER) | payer BC, OTHER ==
[~2016-09-26] VITALS: Ht 160 cm; Wt 104.3 kg
[~2016-09-26 13:54] MED LIST changes: +ZOFR4TAB3 PO
[2016-09-26] MEDS ORDERED: IBUP600T26 PO (14:04)
[2016-09-26] MEDS ORDERED: KETOROLAC 30 MG/ML VIAL (J1885) IV ONE (14:30)
[2016-09-26] MEDS ORDERED: ONDANSETRON 4MG/2ML VIAL (J2405) IV ONE (14:30)
[2016-09-26] MEDS ORDERED: NS 1,000 ML IV ONE (14:30)
[2016-09-26 14:52] LABS: BASO % 0.5 % (0.0-1.0); EOS # 0.2 K/mm3 (0.0-0.50); EOS % 2.2 % (0.0-3.0); LARGE UNSTAINED CELL # 0.1 K/mm3 (0.0-0.4); LARGE UNSTAINED CELL % 1.4 % (0.0-4.0); LYMPH # 2.9 K/mm3 (1.5-6.5); LYMPH % 32.7 % (24.0-44.0); MEAN CORPUSCULAR HEMOGLOBIN 33.2 pg (27.0-33.0); MEAN CORPUSCULAR HGB CONC 35.2 g/dl (32.0-36.5); MEAN CORPUSCULAR VOLUME 94.3 fl (80.0-96.0); MONO # 0.5 K/mm3 (0.0-0.8); MONO % 5.5 % (0.0-5.0); NEUTROPHILS # 4.8 K/mm3 (1.8-7.7); NEUTROPHILS % 57.6 % (36.0-66.0); PLATELET COUNT, AUTOMATED 261 k/mm3 (150-450); RED CELL DISTRIBUTION WIDTH 12.6 % (11.5-14.5); WHITE BLOOD COUNT 8.4 K/mm3 (4.0-10.0)
[2016-09-26 15:15] LABS: ALBUMIN 3.8 GM/DL (3.2-5.2); ALBUMIN/GLOBULIN RATIO 1.06 (1.00-1.93); ALKALINE PHOSPHATASE 120 U/L (45-117); ALT/SGPT 32 U/L (12-78); ANION GAP 4 MEQ/L (8-16); AST/SGOT 12 U/L (15-37); BILIRUBIN,DIRECT < 0.1 MG/DL (0.0-0.2); BILIRUBIN,TOTAL 0.4 MG/DL (0.2-1.0); BLOOD UREA NITROGEN 6 MG/DL (7-18); CALCIUM LEVEL 9.3 MG/DL (8.5-10.1); CARBON DIOXIDE LEVEL 31 MEQ/L (21-32); CHLORIDE LEVEL 108 MEQ/L (98-107); CREATININE FOR GFR 0.56 MG/DL (0.55-1.02); GLOMERULAR FILTRATION RATE > 60.0 (>60); GLUCOSE, FASTING 85 MG/DL (70-105); POTASSIUM SERUM 4.1 MEQ/L (3.5-5.1); SODIUM LEVEL 143 MEQ/L (136-145); TOTAL PROTEIN 7.4 GM/DL (6.4-8.2)
[2016-09-26] MEDS ORDERED: ZOFR4TAB3 PO (15:26)
[2016-09-26] MEDS ORDERED: ULTR50TA PO (15:26)
--- NOTE | 2016-09-26 15:27 | REP ---
CT study of the abdomen and pelvis without IV or oral contrast: Renal stone protocol. History: Right-sided pain. Comparison study: June 13, 2016. Findings: Preliminary digital panel raiser operator radiograph shows clips in the right upper quadrant and a normal bowel gas pattern. The lung bases are clear. The liver and the spleen are normal in size, homogeneous in texture. No adrenal lesion is seen. No pancreatic abnormalities observed. There is no evidence of hydronephrosis on either side. There is an intrarenal calculus in the left kidney, upper pole measuring 3 mm in diameter. No other intrarenal calculus is seen. No bladder or ureteral calculus is observed. No uterine or adnexal abnormality is seen. Normal appendix is seen in the right lower quadrant. No abdominal wall defect is observed. Bone window settings show no bony destructive lesion. Impression: Intrarenal calculus 3 mm in size in the upper pole of the left kidney without evidence of hydronephrosis. No ureteral calculus is seen. Otherwise unremarkable CT study abdomen and pelvis. The patient is status post cholecystectomy. Signed by Justino Joshi MD 09/26/2016 04:02 P
[2016-09-26 15:32] VITALS: BP 136/85
== END 2016-09-26 15:39 | disposition home or self-care (01) ==
LOC: M ED 14:21
DX: N20.0 Calculus of kidney (principal); Z87.442 Personal history of urinary calculi; Z79.899 Other long term (current) drug therapy; Z88.5 Allergy status to narcotic agent
CPT/HCPCS: 74176; 80048; 80076; 81001; 81025; 83690; 85025; 96374; 96375; 99284; J1885; J2405

== ENCOUNTER → 2017-02-07 | Outpatient (REF) | payer OTHER ==
[~2017-02-07] MED LIST changes: +IBUP-1022 PO; +ULTR50TA8 PO
== END ==
LOC: M SFHCLERA 17:17
PROVIDERS: ATTEND Nurse Practitioner Family
DX: R30.0 Dysuria (principal)

== ENCOUNTER 2017-04-21 17:33 | Emergency (ER) | payer OTHER ==
[~2017-04-21] VITALS: Ht 160 cm; Wt 106.8 kg
[2017-04-21 17:33] VITALS: BP 141/87
[2017-04-21] MEDS ORDERED: COSE1INJ3 SC (17:42)
[2017-04-21] MEDS ORDERED: IBUP-1022 PO (18:31)
--- NOTE | 2017-04-21 18:48 | REP ---
Right ankle series: Four views. History: Injury in a fall. Findings: Four views of the right ankle are compared with the August 30, 2012 prior study. Ankle mortise is intact. No fracture is seen. Impression: Negative right ankle views. Signed by Justino Joshi MD 04/21/2017 09:43 P
== END 2017-04-21 19:58 | disposition home or self-care (01) ==
LOC: M ED 17:33
DX: S93.401A Sprain of unspecified ligament of right ankle, initial encounter (principal); W19.XXXA Unspecified fall, initial encounter; Y92.099 Unspecified place in other non-institutional residence as the place of occurrence of the external cause; Y93.9 Activity, unspecified; Y99.9 Unspecified external cause status; I10 Essential (primary) hypertension; K21.9 Gastro-esophageal reflux disease without esophagitis; Z79.899 Other long term (current) drug therapy; Z88.5 Allergy status to narcotic agent

== ENCOUNTER 2017-07-17 11:30 | Emergency (ER) | payer BC, OTHER ==
[2017-07-17] MEDS: METOCLOPRAMIDE INJ 10MG/2ML VIAL (J2765) IV (13:45)
[2017-07-17] MEDS: NS 1,000 ML IV (13:45)
[2017-07-17 14:08] LABS: BASO # 0.1 10^3/uL (0.0-0.2); BASO % 0.6 % (0.0-1.0); EOS # 0.1 10^3/uL (0.0-0.50); EOS % 1.2 % (0.0-3.0); HEMATOCRIT 41.6 % (36.0-47.0); HEMOGLOBIN 14.5 g/dl (12.0-16.0); IMMATURE GRANULOCYTE % 0.3 % (0-3.0); LYMPH # 2.9 10^3/uL (1.5-6.5); MEAN CORPUSCULAR HEMOGLOBIN 31.9 pg (27.0-33.0); MEAN CORPUSCULAR HGB CONC 34.9 g/dl (32.0-36.5); MEAN CORPUSCULAR VOLUME 91.6 fl (80.0-96.0); MONO # 0.7 10^3/uL (0.0-0.8); MONO % 6.3 % (0.0-5.0); NEUTROPHILS # 7.4 10^3/uL (1.8-7.7); NEUTROPHILS % 65.6 % (36.0-66.0); PLATELET COUNT, AUTOMATED 255 10^3/uL (150-450); RED BLOOD COUNT 4.54 10^6/uL (4.00-5.40); RED CELL DISTRIBUTION WIDTH 12.1 % (11.5-14.5); WHITE BLOOD COUNT 11.3 10^3/uL (4.0-10.0)
[2017-07-17 14:36] LABS: CONTROL LINE HCG INT CTR LINE PRESENT; HCG, SERUM QUALITATIVE NEGATIVE (NEGATIVE)
[2017-07-17 14:45] LABS: ALKALINE PHOSPHATASE 118 U/L (45-117); ALT/SGPT 27 U/L (12-78); ANION GAP 9 MEQ/L (8-16); AST/SGOT 16 U/L (7-37); BILIRUBIN,DIRECT 0.1 MG/DL (0.0-0.2); BILIRUBIN,TOTAL 0.4 MG/DL (0.2-1.0); BLOOD UREA NITROGEN 13 MG/DL (7-18); CARBON DIOXIDE LEVEL 24 MEQ/L (21-32); CHLORIDE LEVEL 108 MEQ/L (98-107); CREATININE FOR GFR 0.64 MG/DL (0.55-1.30); GLOMERULAR FILTRATION RATE > 60.0 (>60); GLUCOSE, FASTING 92 MG/DL (70-100); LIPASE 120 U/L (73-393); POTASSIUM SERUM 3.8 MEQ/L (3.5-5.1); SODIUM LEVEL 141 MEQ/L (136-145)
[2017-07-17] MEDS ORDERED: AUGMENTIN 875 MG TAB PO (15:15)
== END 2017-07-17 15:24 | disposition home or self-care (01) ==
LOC: M ED 11:30
DX: A08.4 Viral intestinal infection, unspecified (principal); I10 Essential (primary) hypertension; K21.9 Gastro-esophageal reflux disease without esophagitis; Z88.5 Allergy status to narcotic agent; Z79.899 Other long term (current) drug therapy
CPT/HCPCS: J2765

== ENCOUNTER → 2017-08-04 | Outpatient (CLI) | payer BC ==
[2017-08-04 19:22] LABS: FREE T3 2.5 PG/ML (2.2-4.0); FREE T4 0.89 NG/DL (0.76-1.46)
[2017-08-07 00:07] LABS: EBV VIRAL CAPSID AG IgM <36.0 U/mL (0.0-35.9)
[2017-08-07 00:07] LABS: EBV AB TO NUCLEAR ANTIGEN <18.0 U/mL (0.0-17.9)
== END ==
LOC: M LAB 16:02
DX: E03.9 Hypothyroidism, unspecified (principal); F41.9 Anxiety disorder, unspecified; E55.9 Vitamin D deficiency, unspecified
CPT/HCPCS: 84443

== ENCOUNTER → 2018-02-09 | Outpatient (CLI) | payer BC ==
[2018-02-09 15:00] LABS: HCG, SERUM QUANTITATIVE 18 MIU/ML
== END ==
LOC: M LAB 13:27
DX: O03.4 Incomplete spontaneous abortion without complication (principal); Z3A.00 Weeks of gestation of pregnancy not specified
CPT/HCPCS: 84702

== ENCOUNTER → 2018-02-25 | Outpatient (REF) | payer BC ==
[2018-02-26 14:31] LABS: CHLAMYDIA DNA AMPLIFICATION NEGATIVE (NEGATIVE); GC DNA AMPLIFICATION NEGATIVE (NEGATIVE)
== END ==
LOC: M SFHCLERA 20:03
DX: R10.9 Unspecified abdominal pain (principal)
CPT/HCPCS: 87086

== ENCOUNTER → 2018-05-18 | Outpatient (REF) | payer BC ==
[~2018-05-18] MED LIST changes: +AUGM875T28 PO; +COSE1INJ3 SC; +ZOFR4TAB14 PO; -ZOFR4TAB3 PO
[2018-05-18 14:06] LABS: HEMATOCRIT 38.8 % (36.0-47.0); HEMOGLOBIN 12.6 g/dl (12.0-15.5); MEAN CORPUSCULAR HEMOGLOBIN 29.6 pg (27.0-33.0); MEAN CORPUSCULAR HGB CONC 32.5 g/dl (32.0-36.5); MEAN CORPUSCULAR VOLUME 91.1 fl (80.0-96.0); PLATELET COUNT, AUTOMATED 239 10^3/uL (150-450); RED BLOOD COUNT 4.26 10^6/uL (4.00-5.40); WHITE BLOOD COUNT 7.2 10^3/uL (4.0-10.0)
[2018-05-18 14:29] LABS: ALBUMIN 3.6 GM/DL (3.2-5.2); ALT/SGPT 36 U/L (12-78); BILIRUBIN,TOTAL 0.3 MG/DL (0.2-1.0); BLOOD UREA NITROGEN 8 MG/DL (7-18); CARBON DIOXIDE LEVEL 27 MEQ/L (21-32); CHLORIDE LEVEL 105 MEQ/L (98-107); CREATININE FOR GFR 0.56 MG/DL (0.55-1.30); GLOMERULAR FILTRATION RATE > 60.0 (>60); GLUCOSE, FASTING 75 MG/DL (70-100); POTASSIUM SERUM 4.3 MEQ/L (3.5-5.1); SODIUM LEVEL 141 MEQ/L (136-145)
[2018-05-18 14:52] LABS: HEPATITIS B SURFACE ANTIGEN NEGATIVE (NEGATIVE)
[2018-05-18 15:18] LABS: HEPATITIS C VIRUS ABY INDEX 0.1 INDEX (<0.8)
[2018-05-18 15:19] LABS: HEPATITIS B CORE ANTIBODY IGM NEGATIVE (NEGATIVE)
[2018-05-18 15:20] LABS: HIV 1&2 SCREEN CENTAUR NEGATIVE (NEGATIVE)
[2018-05-18 15:21] LABS: HEPATITIS A ANTIBODY IGM NEGATIVE (NEGATIVE)
[2018-05-20 11:22] LABS: HEPATITIS B SURFACE ANTIBODY NEGATIVE (POSITIVE)
== END ==
LOC: M SFHCPLAZ 10:57
PROVIDERS: ATTEND Dermatology
DX: Z51.81 Encounter for therapeutic drug level monitoring (principal); Z79.899 Other long term (current) drug therapy

== ENCOUNTER 2018-06-03 10:49 | Outpatient (CLI) | payer BC ==
[~2018-06-03] VITALS: Ht 160 cm; Wt 111.0 kg
[2018-06-03 10:55] VITALS: BP 140/98
[2018-06-03] MEDS ORDERED: diphenhydrAMINE 25MG PO PRIOR TO INFUSION PO ONE (11:00)
[2018-06-03] MEDS ORDERED: inFLIXimab INJECTION 600 MG in NS 190 ML IV ONE (11:00)
[2018-06-03] MEDS ORDERED: NS 1,000 ML IV SCH (11:00)
[2018-06-03] MEDS ORDERED: ACETAMINOPHEN 650MG PO PRIOR TO INFUSION PO ONE (11:00)
[2018-06-03] MEDS ORDERED: FILTER 1.2 MICRON (ADULT TPN/MANNITOL/REMICADE) XX ONE (11:00)
[2018-06-03] MEDS ORDERED: dexameTHASONE 20 MG/5 ML VIAL (J1100) As Ordered ONE (11:06)
[2018-06-03] MEDS ORDERED: dexameTHASONE 20 MG IV PRIOR TO INFUSION IV ONE (11:15)
[2018-06-03 15:05] VITALS: BP 147/92
== END 2018-06-03 15:05 | disposition home or self-care (01) ==
LOC: M INFU 10:49
PROVIDERS: ATTEND Internal Medicine Rheumatology
DX: L40.0 Psoriasis vulgaris (principal); Z88.5 Allergy status to narcotic agent
CPT/HCPCS: 96413; 96415; J1100; J1745

== ENCOUNTER 2018-06-22 12:38 | Outpatient (CLI) | payer BC ==
[~2018-06-22] VITALS: Ht 160 cm; Wt 111.0 kg
[2018-06-22 12:45] VITALS: BP 139/72
[2018-06-22] MEDS ORDERED: NS 1,000 ML IV SCH (13:00)
[2018-06-22] MEDS ORDERED: inFLIXimab INJECTION 600 MG in NS 190 ML IV ONE (13:00)
[2018-06-22] MEDS ORDERED: diphenhydrAMINE 25MG PO PRIOR TO INFUSION PO ONE (13:00)
[2018-06-22] MEDS ORDERED: FILTER 1.2 MICRON (ADULT TPN/MANNITOL/REMICADE) XX ONE (13:00)
[2018-06-22] MEDS ORDERED: ACETAMINOPHEN 650MG PO PRIOR TO INFUSION PO ONE (13:00)
[2018-06-22] MEDS ORDERED: dexameTHASONE 20 MG IV PRIOR TO INFUSION IV ONE (13:00)
[2018-06-22 16:12] VITALS: BP 127/82
== END 2018-06-22 16:15 | disposition home or self-care (01) ==
LOC: M INFU 12:38
PROVIDERS: ATTEND Internal Medicine Rheumatology
DX: L40.0 Psoriasis vulgaris (principal); Z88.5 Allergy status to narcotic agent; Z79.899 Other long term (current) drug therapy
CPT/HCPCS: 96375; 96413; 96415; J1100; J1745

== ENCOUNTER 2018-08-03 11:59 | Outpatient (CLI) | payer BC ==
[~2018-08-03] VITALS: Ht 160 cm; Wt 111.0 kg
[2018-08-03 12:13] VITALS: BP 130/92
[2018-08-03] MEDS ORDERED: FILTER 1.2 MICRON (ADULT TPN/MANNITOL/REMICADE) XX ONE (12:15)
[2018-08-03] MEDS ORDERED: NS 1,000 ML IV SCH (12:15)
[2018-08-03] MEDS ORDERED: diphenhydrAMINE 25MG PO PRIOR TO INFUSION PO ONE (12:30)
[2018-08-03] MEDS ORDERED: dexameTHASONE 20 MG IV PRIOR TO INFUSION IV ONE (12:30)
[2018-08-03] MEDS ORDERED: ACETAMINOPHEN 650MG PO PRIOR TO INFUSION PO ONE (12:30)
[2018-08-03] MEDS ORDERED: inFLIXimab INJECTION 600 MG in NS 190 ML IV ONE (13:00)
[2018-08-03 13:30] VITALS: BP 123/83
[2018-08-03 13:45] VITALS: BP 129/69
[2018-08-03 15:30] VITALS: BP 122/80
== END 2018-08-03 15:30 | disposition home or self-care (01) ==
LOC: M INFU 11:59
PROVIDERS: ATTEND Internal Medicine Rheumatology
DX: L40.0 Psoriasis vulgaris (principal); Z88.5 Allergy status to narcotic agent
CPT/HCPCS: 96375; 96413; 96415; J1100; J1745

== ENCOUNTER 2018-10-02 12:47 | Outpatient (CLI) | payer BC ==
[~2018-10-02] VITALS: Ht 160 cm; Wt 111.0 kg
[2018-10-02] MEDS ORDERED: NS 1,000 ML IV SCH (13:00)
[2018-10-02] MEDS ORDERED: FILTER 1.2 MICRON (ADULT TPN/MANNITOL/REMICADE) XX ONE (13:00)
[2018-10-02] MEDS ORDERED: dexameTHASONE 20 MG IV PRIOR TO INFUSION IV ONE (13:30)
[2018-10-02] MEDS ORDERED: diphenhydrAMINE 25MG PO PRIOR TO INFUSION PO ONE (13:30)
[2018-10-02] MEDS ORDERED: ACETAMINOPHEN 650MG PO PRIOR TO INFUSION PO ONE (13:30)
[2018-10-02 14:00] VITALS: BP 130/78
[2018-10-02] MEDS ORDERED: inFLIXimab INJECTION 600 MG in NS 190 ML IV ONE (14:00)
[2018-10-02 16:19] VITALS: BP 139/83
== END 2018-10-02 16:20 | disposition home or self-care (01) ==
LOC: M INFU 12:47
PROVIDERS: ATTEND Internal Medicine Rheumatology
DX: L40.0 Psoriasis vulgaris (principal); Z88.5 Allergy status to narcotic agent
CPT/HCPCS: 96375; 96413; 96415; J1100; J1745

== ENCOUNTER 2018-11-08 20:58 | Emergency (ER) | payer BC ==
[~2018-11-08] VITALS: Ht 160 cm; Wt 111.4 kg
[2018-11-08] MEDS ORDERED: INFL10VL IV (21:05)
[2018-11-08] MEDS ORDERED: NS 1,000 ML IV ONE (21:45)
[2018-11-08] MEDS ORDERED: ISOVUE-370 76% 100ML VIAL (Q9967) As Ordered ONE (22:18)
[2018-11-08 22:24] LABS: BASO # 0.1 10^3/uL (0.0-0.2); BASO % 0.6 % (0.0-1.0); EOS # 0.2 10^3/uL (0.0-0.50); EOS % 2.1 % (0.0-3.0); HEMATOCRIT 40.6 % (36.0-47.0); HEMOGLOBIN 13.8 g/dl (12.0-15.5); LYMPH # 3.6 10^3/uL (1.5-6.5); LYMPH % 44.4 % (24.0-44.0); MEAN CORPUSCULAR HEMOGLOBIN 31.9 pg (27.0-33.0); MEAN CORPUSCULAR VOLUME 93.8 fl (80.0-96.0); MONO # 0.8 10^3/uL (0.0-0.8); MONO % 9.8 % (0.0-5.0); NEUTROPHILS # 3.5 10^3/uL (1.8-7.7); NEUTROPHILS % 42.7 % (36.0-66.0); PLATELET COUNT, AUTOMATED 232 10^3/uL (150-450); RED BLOOD COUNT 4.33 10^6/uL (4.00-5.40); WHITE BLOOD COUNT 8.1 10^3/uL (4.0-10.0)
[2018-11-08 22:45] LABS: ALBUMIN 3.8 GM/DL (3.2-5.2); BILIRUBIN,DIRECT 0.1 MG/DL (0.0-0.2); BILIRUBIN,TOTAL 0.4 MG/DL (0.2-1.0); TOTAL PROTEIN 7.3 GM/DL (6.4-8.2)
--- NOTE | 2018-11-08 22:52 | REPVR ---
EXAM: CT Head Without Contrast EXAM DATE/TIME: 11/08/2018 10:22 PM CLINICAL HISTORY: 28 years old, female; Pain; Other: Headache x 1year; Additional info: ARMAS x 1 yr TECHNIQUE: Imaging protocol: Axial computed tomography images of the head without contrast. Radiation optimization: All CT scans at this facility use at least one of these dose optimization techniques: automated exposure control; mA and/or kV adjustment per patient size (includes targeted exams where dose is matched to clinical indication); or iterative reconstruction. COMPARISON: No relevant prior studies available. FINDINGS: Brain: Normal. No hemorrhage. Unremarkable white matter. No mass effect. Ventricles: Normal. No ventriculomegaly. Bones/joints: Unremarkable. No acute fracture. Sinuses: Visualized sinuses are unremarkable. No fluid levels. Mastoid air cells: Visualized mastoid air cells are well aerated. No mastoid effusion. Soft tissues: Unremarkable. IMPRESSION: No acute intracranial abnormality. Electronically signed by: Oswald Rosas On 11/08/2018 22:51:38 PM
--- NOTE | 2018-11-08 22:58 | REPVR ---
EXAM: CT Angiography Chest With Contrast EXAM DATE/TIME: 11/08/2018 10:22 PM CLINICAL HISTORY: 28 years old, female; Chest pain; Additional info: Pleuritic cp, hemoptysis, tachy TECHNIQUE: Imaging protocol: Axial computed tomographic angiography images of the chest with intravenous contrast using CT angiography protocol. Coronal and sagittal reformatted images were created and reviewed. 3D rendering: MIP reconstructed images were created and reviewed. Radiation optimization: All CT scans at this facility use at least one of these dose optimization techniques: automated exposure control; mA and/or kV adjustment per patient size (includes targeted exams where dose is matched to clinical indication); or iterative reconstruction. Contrast material: ISOVUE 370; Contrast volume: 75 ml; Contrast route: IV; COMPARISON: CR Chest, 2 view PA, Lat 05/05/2014 9:53 AM FINDINGS: Pulmonary arteries: Normal. No pulmonary emboli. Aorta: Unremarkable. No aortic aneurysm. No aortic dissection. Lungs: Unremarkable. No consolidation. No masses. Pleural space: Unremarkable. No pneumothorax. No pleural effusion. Heart: Unremarkable. No cardiomegaly. No pericardial effusion. Lymph nodes: Unremarkable. No enlarged lymph nodes. Bones/joints: Unremarkable. No acute fracture. Soft tissues: Unremarkable. IMPRESSION: No acute findings. Electronically signed by: Oswald Rosas On 11/08/2018 22:58:41 PM
[2018-11-08] MEDS ORDERED: GI COCKTAIL 50ML BTL(HYOSCYAMINE/MAALOX/LIDOCAINE VISCOUS)(1:3:1) PO ONE (23:45)
[2018-11-08] MEDS ORDERED: KETOROLAC 30 MG/ML VIAL (J1885) IV ONE (23:45)
[2018-11-09] MEDS ORDERED: ZANT150T40 PO (00:42)
[2018-11-09 00:48] VITALS: BP 139/74
--- NOTE | 2018-11-09 16:42 | ECGEPIP ---
[facility] - ED Test Date: 2018-11-08 Pat Name: DAYA CRANE Department: Room: - Gender: Female Entry Manager: glenna : 1990 Requested By: ALEX GALVEZ Order Number: [id number] Reading MD: Alex Garcia Measurements Intervals [place] Rate: 99 P: 38 VT: 184 QRS: 24 QRSD: 104 T: 7 QT: 349 QTc: 448 Interpretive Statements SINUS RHYTHM Nonspecific T wave abnormality Comparison tracing not on file Electronically Signed on 11-09-2018 16:42:27 EDT by Alex Garcia
== END 2018-11-09 00:50 | disposition home or self-care (01) ==
LOC: M ED 20:58
DX: R07.89 Other chest pain (principal); R06.00 Dyspnea, unspecified; R51 Headache; I10 Essential (primary) hypertension; Z87.442 Personal history of urinary calculi; Z79.899 Other long term (current) drug therapy; Z88.5 Allergy status to narcotic agent
CPT/HCPCS: 70450; 71275; 80047; 80076; 81001; 83690; 84702; 85025; 85379; 93005; 93041; 94760; 96360; 96361; 96374; 99284; J1885; Q9967

== ENCOUNTER 2018-11-26 17:39 | Emergency (ER) | payer BC ==
[~2018-11-26] VITALS: Ht 160 cm; Wt 112.5 kg
[~2018-11-26 17:39] MED LIST changes: +INFL10VL IV; +ZANT150T40 PO
--- NOTE | 2018-11-26 19:03 | REPVR ---
EXAM: US Duplex Left Lower Extremity Veins, Limited EXAM DATE/TIME: 11/26/2018 6:30 PM CLINICAL HISTORY: 28 years old, female; Pain; Leg, lower; Left; Additional info: Left calf pain TECHNIQUE: Imaging protocol: Real-time Duplex ultrasound of the Left Lower Extremity with 2-D graham scale, color Doppler flow and spectral waveform analysis with image documentation. Limited exam focused on the left lower extremity veins. COMPARISON: US Duplex, Ext,LOWER veins,unilat 05/08/2015 5:17 PM FINDINGS: Left deep veins: Unremarkable. The common femoral, femoral and popliteal veins are patent without thrombus. Normal compressibility, augmentation response and Doppler waveforms. Left superficial veins: Unremarkable. Saphenofemoral junction is patent without thrombus. Soft tissues: Unremarkable. IMPRESSION: No sonographic evidence of deep vein thrombosis. Electronically signed by: Harlan Tyson On 11/26/2018 19:03:20 PM
[2018-11-26 19:33] VITALS: BP 148/93
== END 2018-11-26 19:35 | disposition home or self-care (01) ==
LOC: M ED 17:39
DX: S80.11XA Contusion of right lower leg, initial encounter (principal); M79.604 Pain in right leg; X58.XXXA Exposure to other specified factors, initial encounter; Y92.9 Unspecified place or not applicable; Y93.9 Activity, unspecified; Y99.9 Unspecified external cause status; I10 Essential (primary) hypertension; K21.9 Gastro-esophageal reflux disease without esophagitis; Z87.442 Personal history of urinary calculi; Z79.899 Other long term (current) drug therapy; Z88.5 Allergy status to narcotic agent

== ENCOUNTER → 2018-11-27 | Outpatient (CLI) | payer BC ==
[~2018-11-27] MED LIST changes: +ACETAMINOPHEN 650MG PO PRIOR TO INFUSION PO ONE; +FILTER 1.2 MICRON (ADULT TPN/MANNITOL/REMICADE) XX ONE; +NS 1,000 ML IV SCH; +dexameTHASONE 20 MG IV IV ONE; +diphenhydrAMINE 25 MG CAP PO ONE; +inFLIXimab INJECTION 600 MG in NS 190 ML IV ONE
== END ==
LOC: M INFU 12:59
PROVIDERS: ATTEND Internal Medicine Rheumatology
DX: L40.9 Psoriasis, unspecified (principal); Z53.9 Procedure and treatment not carried out, unspecified reason

== ENCOUNTER 2018-12-01 12:52 | Outpatient (CLI) | payer BC ==
[~2018-12-01] VITALS: Ht 160 cm; Wt 111.0 kg
[~2018-12-01 12:52] MED LIST changes: -ACETAMINOPHEN 650MG PO PRIOR TO INFUSION PO ONE; -FILTER 1.2 MICRON (ADULT TPN/MANNITOL/REMICADE) XX ONE; -NS 1,000 ML IV SCH; -dexameTHASONE 20 MG IV IV ONE; -diphenhydrAMINE 25 MG CAP PO ONE; -inFLIXimab INJECTION 600 MG in NS 190 ML IV ONE
[2018-12-01 13:23] VITALS: BP 143/89
[2018-12-01] MEDS ORDERED: diphenhydrAMINE 25MG PO PRIOR TO INFUSION PO ONE (14:00)
[2018-12-01] MEDS ORDERED: NS 1,000 ML IV SCH (14:00)
[2018-12-01] MEDS ORDERED: ACETAMINOPHEN 650MG PO PRIOR TO INFUSION PO ONE (14:00)
[2018-12-01] MEDS ORDERED: inFLIXimab INJECTION 600 MG in NS 190 ML IV ONE (14:00)
[2018-12-01] MEDS ORDERED: dexameTHASONE 20 MG IV PRIOR TO INFUSION IV ONE (14:00)
[2018-12-01] MEDS ORDERED: FILTER 1.2 MICRON (ADULT TPN/MANNITOL/REMICADE) XX ONE (14:00)
== END 2018-12-01 16:30 | disposition home or self-care (01) ==
LOC: M INFU 12:52
PROVIDERS: ATTEND Internal Medicine Rheumatology
DX: L40.0 Psoriasis vulgaris (principal); Z88.5 Allergy status to narcotic agent
CPT/HCPCS: 96375; 96413; 96415; J1100; J1745

== ENCOUNTER 2019-01-22 12:51 | Outpatient (CLI) | payer BC ==
[~2019-01-22] VITALS: Ht 160 cm; Wt 111.0 kg
[~2019-01-22 12:51] MED LIST changes: +OMEP-358 PO; -OMEP20TA PO
[2019-01-22 12:55] VITALS: BP 136/92
[2019-01-22] MEDS ORDERED: diphenhydrAMINE 25 MG CAP PO ONE (13:45)
[2019-01-22] MEDS ORDERED: ACETAMINOPHEN 650MG PO PRIOR TO INFUSION PO ONE (14:00)
[2019-01-22] MEDS ORDERED: inFLIXimab INJECTION 600 MG in NS 190 ML IV ONE (14:00)
[2019-01-22] MEDS ORDERED: FILTER 1.2 MICRON (ADULT TPN/MANNITOL/REMICADE) XX ONE (14:00)
[2019-01-22] MEDS ORDERED: dexameTHASONE 20 MG IV PRIOR TO INFUSION IV ONE (14:00)
[2019-01-22] MEDS ORDERED: NS 1,000 ML IV SCH (14:00)
[2019-01-22 17:30] VITALS: BP 132/89
[2019-03-19] MEDS ORDERED: IBUP-1022 PO (12:00)
[2019-03-19] MEDS ORDERED: OMEP40CA97 PO (12:00)
[2019-03-19] MEDS ORDERED: FLOM0.4C39 PO (12:00)
[2019-05-06] MEDS ORDERED: TAMS1CAP17 PO (10:39)
[2019-05-06] MEDS ORDERED: PREV1CAP PO (10:43)
== END 2019-01-22 17:30 ==
LOC: M INFU 12:51
PROVIDERS: ATTEND Internal Medicine Rheumatology
DX: L40.50 Arthropathic psoriasis, unspecified (principal); Z88.5 Allergy status to narcotic agent
CPT/HCPCS: 96375; 96413; 96415; J1100; J1745

== ENCOUNTER 2019-01-30 12:37 | Emergency (ER) | payer BC ==
[~2019-01-30] VITALS: Ht 160 cm; Wt 111.4 kg
[~2019-01-30 12:37] MED LIST changes: -OMEP-358 PO; +OMEP20TA PO
[2019-01-30] MEDS ORDERED: FLUTISP (12:53)
[2019-01-30 13:42] LABS: BASO # 0.1 10^3/uL (0.0-0.2); BASO % 0.9 % (0.0-1.0); EOS # 0.2 10^3/uL (0.0-0.5); EOS % 2.8 % (0.0-3.0); HEMATOCRIT 40.5 % (36.0-47.0); LYMPH # 2.5 10^3/uL (1.5-5.0); LYMPH % 39.3 % (24.0-44.0); MEAN CORPUSCULAR HEMOGLOBIN 31.7 pg (27.0-33.0); MEAN CORPUSCULAR HGB CONC 34.6 g/dl (32.0-36.5); MEAN CORPUSCULAR VOLUME 91.8 fl (80.0-96.0); MONO # 0.6 10^3/uL (0.0-0.8); MONO % 9.5 % (0.0-5.0); PLATELET COUNT, AUTOMATED 239 10^3/uL (150-450); RED BLOOD COUNT 4.41 10^6/uL (4.00-5.40); WHITE BLOOD COUNT 6.4 10^3/uL (4.0-10.0)
[2019-01-30] MEDS ORDERED: ONDANSETRON 4MG/2ML VIAL (J2405) IV ONE (14:00)
[2019-01-30] MEDS ORDERED: KETOROLAC 30 MG/ML VIAL (J1885) IV ONE (14:00)
[2019-01-30] MEDS ORDERED: NS 1,000 ML IV ONE (14:00)
[2019-01-30 14:25] LABS: ALBUMIN 3.5 GM/DL (3.2-5.2); ALT/SGPT 582 U/L (12-78); BILIRUBIN,DIRECT 0.1 MG/DL (0.0-0.2); BILIRUBIN,TOTAL 0.5 MG/DL (0.2-1.0); BLOOD UREA NITROGEN 8 MG/DL (7-18); CARBON DIOXIDE LEVEL 24 MEQ/L (21-32); CHLORIDE LEVEL 109 MEQ/L (98-107); CREATININE FOR GFR 0.54 MG/DL (0.55-1.30); GLOMERULAR FILTRATION RATE > 60.0 (>60); GLUCOSE, FASTING 83 MG/DL (70-100); LIPASE 71 U/L (73-393); POTASSIUM SERUM 4.5 MEQ/L (3.5-5.1); SODIUM LEVEL 139 MEQ/L (136-145)
[2019-01-30] MEDS ORDERED: ISOVUE-370 76% 100ML VIAL (Q9967) As Ordered ONE (14:33)
[2019-01-30] MEDS ORDERED: FLOM0.4C39 PO (17:45)
[2019-01-30] MEDS ORDERED: MIRA3350 PO (17:45)
[2019-01-30] MEDS ORDERED: COLA100C5 PO (17:45)
[2019-01-30] MEDS ORDERED: ONDA4TAB6 PO (17:49)
[2019-01-30 17:51] VITALS: BP 135/88
--- NOTE | 2019-01-31 07:51 | REP ---
CT ABDOMEN AND PELVIS WITH IV CONTRAST ONLY: 01/30/2019. Clinical history: Right lower quadrant pain. Rule out appendicitis. Comparison: CT 09/26/2016. Technique: Bolus of 75 ml Isovue 370 and scanning through the abdomen and pelvis and both coronal and sagittal reconstructions provided. Findings: CT abdomen: The lung bases show minor dependent atelectatic changes posteriorly in the lower lung zones but no effusion or infiltrate in the lung bases and no nodule or mass. Heart not enlarged. No pericardial thickening or effusion and no hiatal hernia. There is no hepatosplenomegaly, focal hepatic or splenic mass nor intrahepatic biliary dilatation. Clips from prior cholecystectomy are noted. The gallbladder is surgically absent. Pancreas shows no mass, ductal dilatation, calcification, peripancreatic fluid or adenopathy. The aorta is without aneurysm. Adrenal glands are normal. On image 47, there is a 5 mm nonobstructing upper pole renal stone. No hydronephrosis. A couple of punctate 1 mm to 2 mm foci, 1 each in a lower pole and another in the right upper pole. No perinephric fluid is noted. Ureters are not abnormally dilated. There is no definite ureteral stone or dilatation of the distal ureter. Bladder shows no wall thickening, mass or stone. The abdominal portion of the colon shows stool and gas scattered without signs of colitis or diverticulitis. Small bowel loops are unremarkable. Lung windows for each slice level in the abdomen show no evidence of perforation or free air. Bone windows show the lumbar and lower thoracic spine, the posterior elements and visualized lower ribs all intact. CT pelvis: The bony pelvis including sacrum, SI joints, iliac bones, ischia, acetabuli and hips are without fracture or focal lesion. Small bowel loops in the deep pelvis were unremarkable. Stool from cecum to the rectosigmoid in mild to moderate volume without sign of colitis or diverticulitis. No stricture or mass. There are a few small pericecal nodes on the range of 5-6 mm noted. Appendix appears to arise inferiorly from the cecum and posteriorly. It curves posteriorly and abuts the psoas. It is not dilated or inflamed. There are no signs of perforation, abscess or free air. No definite appendicolith. Uterus is anteverted, not enlarged with maximal diameter 2.5 cm, unchanged. Right ovary is similar. No pelvic free fluid or adenopathy. No ventral or inguinal hernia or pathologic sized inguinal adenopathy. Impression: 1. There is no CT evidence of appendicitis, appendicolith, pericecal inflammatory change or abscess. No perforation or ascites. 2. Mild to moderate constipation noted. 3. Fairly symmetric ovaries 2.5 cm each. No pelvic free fluid, mass or adenopathy. 4. The solid organs in the upper abdomen as well as the stomach grossly intact. No hiatal hernia. No abdominal or pelvic adenopathy, ascites or free air. 5. Non-obstructing calcifications in the kidneys as described, largest of these was 5 mm in the upper pole on the left. Electronically Signed by Lew Sims MD 01/31/2019 09:21 A
[2019-02-01 10:30] LABS: HEPATITIS A ANTIBODY IGM NEGATIVE (NEGATIVE); HEPATITIS B CORE ANTIBODY IGM NEGATIVE (NEGATIVE); HEPATITIS B SURFACE ANTIGEN NEGATIVE (NEGATIVE); HEPATITIS C VIRUS ABY INDEX 0.1 INDEX (<0.8)
== END 2019-01-30 18:15 | disposition home or self-care (01) ==
LOC: M ED 12:37
DX: K59.00 Constipation, unspecified (principal); R10.31 Right lower quadrant pain; N20.0 Calculus of kidney; R94.5 Abnormal results of liver function studies; I10 Essential (primary) hypertension; Z87.442 Personal history of urinary calculi; Z87.448 Personal history of other diseases of urinary system; K21.9 Gastro-esophageal reflux disease without esophagitis; L40.9 Psoriasis, unspecified; Z87.42 Personal history of other diseases of the female genital tract; Z79.899 Other long term (current) drug therapy; Z88.5 Allergy status to narcotic agent
CPT/HCPCS: 74177; 80048; 80076; 81001; 83690; 84702; 85025; 86705; 86709; 86803; 87340; 96374; 96375; 99284; J1885; J2405; Q9967

== ENCOUNTER → 2019-02-12 | Outpatient (CLI) | payer BC ==
[~2019-02-12] MED LIST changes: +COLA100C5 PO; +FLOM0.4C39 PO; +FLUTISP; +MIRA3350 PO; +OMEP-358 PO; -OMEP20TA PO; +ONDA4TAB6 PO
[2019-02-12 14:08] LABS: ALBUMIN 3.8 GM/DL (3.2-5.2); BILIRUBIN,DIRECT 0.1 MG/DL (0.0-0.2); BILIRUBIN,TOTAL 0.6 MG/DL (0.2-1.0); TOTAL PROTEIN 7.2 GM/DL (6.4-8.2)
== END ==
LOC: M LAB 12:51
PROVIDERS: ATTEND Physician Assistant
DX: R94.5 Abnormal results of liver function studies (principal)

== ENCOUNTER 2019-03-08 06:50 | Emergency (ER) | payer BC ==
[~2019-03-08] VITALS: Ht 160 cm; Wt 111.4 kg
[2019-03-08] MEDS ORDERED: ONDANSETRON 4MG/2ML VIAL (J2405) IV ONE (07:15)
[2019-03-08] MEDS ORDERED: ACETAMINOPHEN TAB 650MG DOSE (2X325MG) PO ONE (07:15)
[2019-03-08 08:12] LABS: BASO % 0.6 % (0.0-1.0); EOS # 0.2 10^3/uL (0.0-0.5); EOS % 2.3 % (0.0-3.0); HEMATOCRIT 41.3 % (36.0-47.0); HEMOGLOBIN 13.8 g/dl (12.0-15.5); LYMPH # 2.1 10^3/uL (1.5-5.0); LYMPH % 28.3 % (24.0-44.0); MEAN CORPUSCULAR HEMOGLOBIN 31.3 pg (27.0-33.0); MEAN CORPUSCULAR HGB CONC 33.4 g/dl (32.0-36.5); MEAN CORPUSCULAR VOLUME 93.7 fl (80.0-96.0); MONO # 0.6 10^3/uL (0.0-0.8); MONO % 7.7 % (0.0-5.0); NEUTROPHILS # 4.4 10^3/uL (1.5-8.5); NEUTROPHILS % 60.8 % (36.0-66.0); PLATELET COUNT, AUTOMATED 227 10^3/uL (150-450); RED BLOOD COUNT 4.41 10^6/uL (4.00-5.40); WHITE BLOOD COUNT 7.2 10^3/uL (4.0-10.0)
[2019-03-08 08:33] LABS: ALBUMIN 3.9 GM/DL (3.2-5.2); ALT/SGPT 54 U/L (12-78); BILIRUBIN,DIRECT 0.1 MG/DL (0.0-0.2); BILIRUBIN,TOTAL 0.6 MG/DL (0.2-1.0); BLOOD UREA NITROGEN 11 MG/DL (7-18); CALCIUM LEVEL 9.4 MG/DL (8.5-10.1); CARBON DIOXIDE LEVEL 24 MEQ/L (21-32); CHLORIDE LEVEL 107 MEQ/L (98-107); CREATININE FOR GFR 0.66 MG/DL (0.55-1.30); GLOMERULAR FILTRATION RATE > 60.0 (>60); GLUCOSE, FASTING 83 MG/DL (70-100); LIPASE 103 U/L (73-393); POTASSIUM SERUM 3.8 MEQ/L (3.5-5.1); SODIUM LEVEL 140 MEQ/L (136-145)
--- NOTE | 2019-03-08 08:50 | REP ---
CT abdomen and pelvis without IV or oral contrast: Renal stone protocol. History: Left flank pain. History of kidney stones. Comparison study: January 30, 2019. CT findings: Digital preliminary vascular surgery physician radiograph shows an unremarkable bowel gas pattern. There are clips in right upper quadrant of the abdomen. The lung bases are clear on axial CT images. There is no evidence of pleural effusion or upper abdominal ascites. The liver and spleen are normal in size, homogeneous in texture. No pancreatic abnormality is seen. No adrenal abnormality is observed. The gallbladder surgically absent. There are two tiny 2 mm intrarenal calculi in the upper pole of the right kidney. There is a similar size stone in the lower pole of the right kidney. There is no evidence of right-sided hydronephrosis. On the left, the previously noted 7 mm calculus which was in the upper pole collecting system at the time of the CT study from January 30, 2019 is again seen. It has moved however to the renal pelvis. There is mild intrarenal collecting system dilation. No ureteral dilation is observed. No ureteral stone is observed. No bladder calculus is seen. There is a 2 mm calculus in the lower pole collecting system of the left kidney. Small and large intestinal bowel loops are unremarkable. A normal appendix is seen in the mid abdomen terminating in the midline. No uterine or ovarian abnormality is seen. No bony destructive lesion seen. Impression: There are bilateral intrarenal calculi. The largest of these is a 7 mm calculus in the renal pelvis of the left kidney with mild intrarenal hydronephrosis. Electronically Signed by Justino Joshi MD 03/08/2019 12:34 P
[2019-03-08] MEDS ORDERED: KETOROLAC 30 MG/ML VIAL (J1885) IV ONE (09:15)
[2019-03-08] MEDS ORDERED: ONDA4TAB6 PO (10:09)
[2019-03-08] MEDS ORDERED: BACT800T5 PO (10:09)
[2019-03-08 10:53] VITALS: BP 121/77
--- NOTE | 2019-03-08 11:02 | REP ---
KUB: Single view. HISTORY: Left flank pain. FINDINGS: Bowel gas pattern is normal. Psoas margins and flank stripes are intact. There is an irregular calcific density overlying the central portion of the left kidney 8 mm in diameter. This corresponds to the renal pelvic calculus seen on March 08, 2019 8:[address] study. It is unchanged in position. IMPRESSION: Irregular 8 mm calculus in the region of the left renal pelvis. Electronically Signed by Justino Joshi MD 03/08/2019 12:36 P
== END 2019-03-08 11:13 | disposition home or self-care (01) ==
LOC: M ED 06:50
DX: R74.8 Abnormal levels of other serum enzymes (principal); N13.2 Hydronephrosis with renal and ureteral calculous obstruction; N20.0 Calculus of kidney; N23 Unspecified renal colic; K21.9 Gastro-esophageal reflux disease without esophagitis; Z87.442 Personal history of urinary calculi; L40.9 Psoriasis, unspecified; Z79.899 Other long term (current) drug therapy; Z88.5 Allergy status to narcotic agent
CPT/HCPCS: 36415; 74018; 74176; 80048; 80076; 81001; 83690; 84702; 85025; 87086; 96374; 96375; 99284; J1885; J2405

== ENCOUNTER → 2019-03-22 | Outpatient (CLI) | payer BC ==
[~2019-03-22] MED LIST changes: +BACT800T5 PO; +OMEP40CA97 PO
--- NOTE | 2019-03-22 19:03 | REP ---
REASON: History of renal cell carcinoma. COMPARISON: 05/05/2014 the latest prior. FINDINGS: The superior mediastinal structures are midline. The cardiac silhouette is unremarkable in size, shape, and position. The diaphragmatic surfaces of the lungs are regular, and the costophrenic angles are clear. The pulmonary casey are clear. The imaged osseous structures are intact. IMPRESSION: There is no acute cardiopulmonary disease. There is no change from the prior exam. COMMENT: If clinical suspicion is high due to the patient's history of renal cell carcinoma then contrast enhanced CT examination of the chest is more sensitive. Electronically Signed by David Ledesma DO 03/22/2019 07:29 P
[2019-03-22 19:06] LABS: APPEARANCE, URINE HAZY (CLEAR); BACTERIA, URINE AUTO 1+ (NEGATIVE); BILIRUBIN, URINE AUTO NEGATIVE (NEGATIVE); BLOOD, URINE BLOOD 1+ (NEGATIVE); COLOR, URINE YELLOW (YELLOW); GLUCOSE, URINE (UA) AUTO NEGATIVE (NEGATIVE); KETONE, URINE AUTO NEGATIVE (NEGATIVE); LEUKOCYTE ESTERASE, URINE AUTO 2+ (NEGATIVE); MUCUS, URINE SMALL (NEGATIVE); NITRITE, URINE AUTO NEGATIVE (NEGATIVE); PROTEIN, URINE AUTO NEGATIVE (NEGATIVE); RBC, URINE AUTO 10 /HPF (0-3); SPECIFIC GRAVITY URINE AUTO 1.015 (1.002-1.035); SQUAMOUS EPITHELIAL CELL UR AU 5 /HPF (0-6); UROBILINOGEN, URINE AUTO 0.2 mg/dL (0.0-2.0); WBC, URINE AUTO 8 /HPF (0-3)
[2019-03-22 19:09] LABS: HEMOGLOBIN 12.5 g/dl (12.0-15.5); MEAN CORPUSCULAR HEMOGLOBIN 31.3 pg (27.0-33.0); MEAN CORPUSCULAR HGB CONC 32.9 g/dl (32.0-36.5); PLATELET COUNT, AUTOMATED 241 10^3/uL (150-450); WHITE BLOOD COUNT 7.1 10^3/uL (4.0-10.0)
[2019-03-22 19:22] LABS: BLOOD UREA NITROGEN 9 MG/DL (7-18); CALCIUM LEVEL 8.9 MG/DL (8.5-10.1); CARBON DIOXIDE LEVEL 28 MEQ/L (21-32); CHLORIDE LEVEL 105 MEQ/L (98-107); CREATININE FOR GFR 0.62 MG/DL (0.55-1.30); GLOMERULAR FILTRATION RATE > 60.0 (>60); GLUCOSE, FASTING 92 MG/DL (70-100); PARTIAL THROMBOPLASTIN TIME 26.1 SECONDS (25.0-38.4); POTASSIUM SERUM 4.4 MEQ/L (3.5-5.1); SODIUM LEVEL 140 MEQ/L (136-145)
[2019-03-22 19:23] LABS: INR 0.95; PROTHROMBIN TIME 12.4 SECONDS (11.8-14.0)
--- NOTE | 2019-03-23 21:40 | ECGEPIP ---
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
== END ==
LOC: M LAB 17:31
PROVIDERS: ATTEND Urology
DX: N20.0 Calculus of kidney (principal)

== ENCOUNTER 2019-03-25 06:11 | Day surgery (SDC) | payer BC ==
[~2019-03-25] VITALS: Ht 160 cm; Wt 111.9 kg
[~2019-03-25 06:11] MED LIST changes: +LIDOCAINE 1% MDV 20ML VIAL SQ PRN; +LR 1,000 ML IV ONE; +ceFAZolin SOD 2 GM in IV 1 EA IV ONE
[2019-03-25] MEDS ORDERED: LIDOCAINE 2% INJ 100 MG/5 ML SDV (FOR ANES.) As Ordered ONE (07:07)
[2019-03-25] MEDS ORDERED: PROPOFOL 200 MG/20 ML VIAL As Ordered ONE (07:07)
[2019-03-25] MEDS ORDERED: fentaNYL 100 MCG/2 ML INJECTION (J3010) As Ordered ONE (07:08)
[2019-03-25] MEDS ORDERED: MIDAZOLAM INJ 2 MG/2 ML VIAL (J2250) As Ordered ONE (07:08)
[2019-03-25] MEDS ORDERED: OXYC1TAB23 PO (07:12)
[2019-03-25 08:40] VITALS: BP 126/78
[2019-03-25] MEDS ORDERED: PERCOCET 5MG/325MG TAB PO PRN (09:00)
--- NOTE | 2019-03-25 09:06 | REP ---
KUB: Single view. HISTORY: Preop. Comparison radiographs March 08, 2019. Comparison CT study March 08, 2019. FINDINGS: There is an irregular 7 mm calcific opacity projecting over the medial aspect of the left kidney consistent with a stone seen in the renal pelvis on the left by CT and prior radiograph. It is unchanged in position. Tiny calcific densities are seen superimposed in the upper pole right kidney. No other urinary tract calculus is seen. The bowel gas pattern is normal. Psoas margins and flank stripes are intact. IMPRESSION: Intrarenal nephrolithiasis. Irregular 7 mm calculus at the location of the left renal pelvis again noted. Electronically Signed by Justino Joshi MD 03/25/2019 10:04 A
--- NOTE | 2019-03-26 16:53 | RO ---
DATE OF PROCEDURE: 03/25/2019 PREPROCEDURE DIAGNOSIS: Left kidney stone. POSTPROCEDURE DIAGNOSIS: Left kidney stone. PROCEDURE: Left extracorporeal shock wave lithotripsy. SURGEON: Dr. Cedric Manning [place] PERFORMER: None. ANESTHESIA: Monitored anesthesia care (MAC). OPERATIVE INDICATIONS: This 28-year-old female was found to have a 7 mm left kidney stone. She was brought to the operating room today for the above-listed procedure. DESCRIPTION OF PROCEDURE: The patient was brought to the operating room and MAC anesthesia was administered. Prophylactic antibiotics were infused. She was then placed in the supine position for a left-sided extracorporeal shock wave lithotripsy. Fluoroscopy was utilized to monitor stone position and fragmentation throughout the procedure. Shock waves were delivered ungated. The stone did appear to fragment well. After 2500 shocks, the procedure was concluded. The patient was then awakened from anesthesia and transported to the recovery room in stable condition. Estimated blood loss: 0 mL. Complications: None. Specimens: None. Plan: The patient will be followup in the clinic in a few weeks with imaging prior to assess for residual stone burden.
== END 2019-03-25 09:31 | disposition home or self-care (01) ==
LOC: M SDC 06:11
PROVIDERS: ATTEND Urology
DX: N20.0 Calculus of kidney (principal); K21.9 Gastro-esophageal reflux disease without esophagitis; E66.9 Obesity, unspecified; L40.9 Psoriasis, unspecified; Z79.899 Other long term (current) drug therapy; Z88.5 Allergy status to narcotic agent
CPT/HCPCS: 50590; 74018; 81025; J0690; J2250; J3010

== ENCOUNTER 2019-03-27 18:56 | Observation (INO) | payer BC ==
[~2019-03-27] VITALS: Ht 160 cm; Wt 114.0 kg
[~2019-03-27 18:56] MED LIST changes: -LIDOCAINE 1% MDV 20ML VIAL SQ PRN; -LR 1,000 ML IV ONE; +OXYC1TAB23 PO; -ceFAZolin SOD 2 GM in IV 1 EA IV ONE
[2019-03-27] MEDS ORDERED: KETOROLAC 30 MG/ML VIAL (J1885) IV ONE (19:30)
[2019-03-27] MEDS ORDERED: ONDANSETRON 4MG/2ML VIAL (J2405) IV ONE (19:30)
[2019-03-27] MEDS ORDERED: NS 1,000 ML IV ONE (19:30)
[2019-03-27 20:18] LABS: BASO # 0.1 10^3/uL (0.0-0.2); BASO % 0.6 % (0.0-1.0); EOS # 0.1 10^3/uL (0.0-0.5); EOS % 1.5 % (0.0-3.0); HEMATOCRIT 37.2 % (36.0-47.0); HEMOGLOBIN 12.5 g/dl (12.0-15.5); LYMPH # 1.7 10^3/uL (1.5-5.0); LYMPH % 20.5 % (24.0-44.0); MEAN CORPUSCULAR HEMOGLOBIN 31.2 pg (27.0-33.0); MEAN CORPUSCULAR HGB CONC 33.6 g/dl (32.0-36.5); MEAN CORPUSCULAR VOLUME 92.8 fl (80.0-96.0); MONO # 0.6 10^3/uL (0.0-0.8); MONO % 7.3 % (0.0-5.0); NEUTROPHILS # 5.9 10^3/uL (1.5-8.5); NEUTROPHILS % 69.7 % (36.0-66.0); PLATELET COUNT, AUTOMATED 255 10^3/uL (150-450); RED BLOOD COUNT 4.01 10^6/uL (4.00-5.40); WHITE BLOOD COUNT 8.5 10^3/uL (4.0-10.0)
[2019-03-27 20:45] LABS: BLOOD UREA NITROGEN 19 MG/DL (7-18); CALCIUM LEVEL 9.6 MG/DL (8.5-10.1); CARBON DIOXIDE LEVEL 27 MEQ/L (21-32); CHLORIDE LEVEL 104 MEQ/L (98-107); CREATININE FOR GFR 0.85 MG/DL (0.55-1.30); GLOMERULAR FILTRATION RATE > 60.0 (>60); GLUCOSE, FASTING 95 MG/DL (70-100); SODIUM LEVEL 139 MEQ/L (136-145)
--- NOTE | 2019-03-27 21:11 | REPVR ---
PROCEDURE INFORMATION: Exam: US Retroperitoneal Limited, Kidneys Exam date and time: 03/27/2019 8:44 PM Age: 28 years old Clinical history: Abdominal pain; Flank; Left; Prior surgery; Surgery date: 3-7 days post-operative; Surgery type: S/P lt lithotripsy; Additional info: Left flank pain S/P lithotripsy for 5 mm upj stone TECHNIQUE: Imaging protocol: Real-time ultrasound of the retroperitoneum with image documentation. Examination was focused on the kidneys. COMPARISON: GALLBLADDER US 11/27/2013 5:47 PM FINDINGS: Right kidney: The right kidney measures 11.7 cm in length and there is no evidence of hydronephrosis. The left kidney measures 13.4 cm in length. There is mild left hydronephrosis. Left kidney: See Right Kidney Finding. Bladder: The urinary bladder cannot be evaluated because it is empty. IMPRESSION: There is mild left hydronephrosis. The left ureter cannot be followed because of bowel gas. Electronically signed by: Sam Kasper On 03/27/2019 21:11:37 PM
[2019-03-27] MEDS ORDERED: fentaNYL 100 MCG/2 ML INJECTION (J3010) IV ONE (21:15)
[2019-03-27] MEDS ORDERED: CEFD300CAP PO (22:01)
[2019-03-27] MEDS ORDERED: IBUP80TA PO (22:01)
[2019-03-27] MEDS ORDERED: ZOFR4TAB16 PO (22:02)
[2019-03-27] MEDS ORDERED: KETOROLAC 30 MG/ML VIAL (J1885) IV PRN (22:15)
[2019-03-27] MEDS ORDERED: ONDANSETRON 4MG/2ML VIAL (J2405) IV PRN (22:15)
--- NOTE | 2019-03-27 22:28 | HPEPDOC ---
General Date of Admission 03/27/19 Date of Service: Mar 27, 2019 Chief Complaint The patient is a 28-year-old female admitted with a reason for visit of Flank Pain. Source: Patient Exam Limitations: No limitations Timing/Duration: 24 hours Severity: Moderate Associated Symptoms: Nausea, Vomiting History of Present Illness Patient is 28 years old female with past medical history of psoriasis, GERD, nephrolithiasis presented to the hospital with severe left flank pain. Patient stated that after lithotripsy which was done on 03/25/19 patient started feeling left flank pain on the next day. Patient described the pain is severe 10 out of 10 associated with vomiting and nausea. ER KUB was done and showed small stone of the left ureter, kidney ultrasound showed mild left kidney hydronephrosis. Patient is afebrile, doesn't have leukocytosis. Urologist Dr. Manning was contacted by phone and he recommended IV fluid, Flomax and pain management. Patient denies fever, chills, palpitations, shortness of breath, diarrhea Home Medications Scheduled Cefdinir (Cefdinir) 300 Mg Capsule, 300 MG PO BID, (Reported) NEW RX, HAS NOT STARTED Omeprazole (Omeprazole) 40 Mg Capsule.dr, 40 MG PO BID, (Reported) Tamsulosin HCl (Flomax) 0.4 Mg Capsule, 0.4 MG PO DAILY, (Reported) Scheduled PRN Ibuprofen (Ibuprofen) 800 Mg Tablet, 800 MG PO TID PRN for PAIN, (Reported) Ondansetron HCl (Zofran) 4 Mg Tablet, 4 MG PO QID PRN for NAUSEA, (Reported) Oxycodone HCl/Acetaminophen (Oxycodone-Acetaminophen 5-325) 1 Each Tablet, 1 TAB PO QID PRN for PAIN, (Reported) Allergies Coded Allergies: morphine (Verified Adverse Reaction, Intermediate, "SEIZURE", 03/19/19) Past Medical History Medical History Psoriasis, acid reflux, nephrolithiasis Family History Father has hypertension, mom has arthralgia after Lyme diseases Social History * Smoker: Denies Alcohol: Denies Drugs: denies A-FIB/CHADSVASC A-FIB History Current/History of A-Fib/PAF?: No Current PO Anticoag Therapy: No Review of Systems Constitutional: Denies: Chills, Fever Eyes: Denies: Pain ENT: Denies: Head Aches Skin: Reports: Rash, Lesions (multiple skin lesions consistent with psoriasis exacerbation) Pulmonary: Denies: Dyspnea Cardiovascular: Denies: Chest Pain Gastrointestinal: Reports: Nausea, Vomiting, Abdominal Pain (severe left flank pain) Genitourinary: Reports: Dysuria, Frequency Hematologic: Denies: Bruising Endocrine: Denies: Polydipsia, Polyphagia Musculoskeletal: Denies: Neck Pain, Back Pain Neurological: Denies: Weakness, Numbness Psych: Reports: Mood Normal Physical Examination General Exam: Positive: Alert, Cooperative Eye Exam: Positive: PERRLA ENT Exam: Positive: Atraumatic Neck Exam: Positive: Supple; Negative: JVD Chest Exam: Positive: Clear to auscultation Heart Exam: Positive: Tachycardic; Negative: Rate Normal Telemetry: Positive: Sinus Abdomen Exam: Positive: BS Hypoactive Extremity Exam: Negative: Clubbing Skin Exam: Positive: Nl turgor and temperature, Rash (multiple skin lesions co nsistent with psoriasis exacerbation) Neuro Exam: Positive: Normal Gait, Strength at 5/5 X4 ext Psych Exam: Positive: Mental status NL Vital Signs Vital Signs Date Time Temp Pulse Resp B/P (MAP) Pulse Ox O2 Delivery O2 Flow Rate FiO2 03/27/19 21:37 18 03/27/19 19:11 03/27/19 18:56 97.2 112 98 Room Air Laboratory Data Labs 24H Laboratory Tests 2 03/27/19 19:17: Immature Granulocyte % (Auto) 0.4, Neutrophils (%) (Auto) 69.7H, Lymphocytes (%) (Auto) 20.5L, Monocytes (%) (Auto) 7.3H, Eosinophils (%) (Auto) 1.5, Basophils (%) (Auto) 0.6, Neutrophils # (Auto) 5.9, Lymphocytes # (Auto) 1.7, Monocytes # (Auto) 0.6, Eosinophils # (Auto) 0.1, Basophils # (Auto) 0.1, Nucleated Red Blood Cells % (auto) 0.0, Urine Color YELLOW, Urine Appearance CLOUDYH, Urine pH 5.0, Urine Specific [place] 1.027, Urine Protein 1+H, Urine Glucose (UA) NEGATIVE, Urine Ketones NEGATIVE, Urine Blood 3+H, Urine Nitrite NEGATIVE, Urine Bilirubin NEGATIVE, Urine Urobilinogen 0.2, Urine Leukocyte Esterase NEGATIVE, Urine WBC (Auto) 4H, Urine RBC (Auto) TNTCH, Urine Hyaline Casts (Auto) 0, Urine Bacteria (Auto) 1+H, Urine Squamous Epithelial Cells 7, Urine Mucus (Auto) SMALL, Urine Sperm (Auto) , Anion Gap 8, Glomerular Filtration Rate > 60.0, Calcium Level 9.6 03/27/19 20:13: POC Beta HCG, Quantitative < 5.0 CBC/BMP Laboratory Tests 03/27/19 19:17 Assessment/Plan Patient is 28 years old female with past medical history of psoriasis, GERD, nephrolithiasis presented to the hospital with severe flank pain. Patient stated that after lithotripsy which was done on 03/25/19 patient started feeling left flank pain on the next day. Patient described the pain is severe 10 out of 10 associated with vomiting and nausea. ER KUB was done and showed small stone in the left ureter, kidney ultrasound showed mild left kidney hydronephrosis. Problems (1) Renal colic on left side Status: Acute Problem Text: Status post lithotripsy Aggressive IV hydration Flomax Pain management (2) Hydronephrosis Status: Acute Problem Text: Secondary to left ureter stone, status post left ureter lithotripsy (3) Left ureteral calculus Status: Acute Problem Text: We will check calcium level, uric acid, PTH We'll send ureter stone for analysis Plan / VTE VTE Prophylaxis Ordered?: Yes SURYA FRANCO DO Mar 27, 2019 22:28
[2019-03-27] MEDS ORDERED: traMADol 50 MG TAB PO PRN (22:30)
[2019-03-27 22:33] LABS: PHOSPHORUS LEVEL 4.9 MG/DL (2.5-4.9); URIC ACID 5.5 MG/DL (2.6-6.0)
[2019-03-27] MEDS: OMEPRAZOLE 20 MG CAP PO SCH (23:52)
[2019-03-27] MEDS: NS 1,000 ML IV SCH (23:53)
[2019-03-27 23:57] VITALS: BP 130/91
[2019-03-28 00:53] LABS: BACTERIA, URINE AUTO 1+ (NEGATIVE); MUCUS, URINE SMALL (NEGATIVE); RBC, URINE AUTO TNTC /HPF (0-3); SQUAMOUS EPITHELIAL CELL UR AU 3 /HPF (0-6); WBC, URINE AUTO 5 /HPF (0-3)
[2019-03-28 04:30] VITALS: BP 127/82
[2019-03-28] MEDS: NS 1,000 ML IV SCH ×3 (05:38→20:01)
[2019-03-28] MEDS ORDERED: ACETAMINOPHEN TAB 650MG DOSE (2X325MG) PO PRN (06:15)
[2019-03-28] MEDS ORDERED: METOCLOPRAMIDE INJ 10MG/2ML VIAL (J2765) IV ONE (06:15)
[2019-03-28] MEDS ORDERED: PERCOCET 5MG/325MG TAB PO PRN ×3 (06:15→11:00)
[2019-03-28 06:39] LABS: HEMOGLOBIN 12.5 g/dl (12.0-15.5); MEAN CORPUSCULAR HEMOGLOBIN 31.3 pg (27.0-33.0); MEAN CORPUSCULAR HGB CONC 32.9 g/dl (32.0-36.5); MEAN CORPUSCULAR VOLUME 95.2 fl (80.0-96.0); PLATELET COUNT, AUTOMATED 206 10^3/uL (150-450); RED BLOOD COUNT 3.99 10^6/uL (4.00-5.40); WHITE BLOOD COUNT 6.8 10^3/uL (4.0-10.0)
[2019-03-28 07:03] LABS: BLOOD UREA NITROGEN 13 MG/DL (7-18); CARBON DIOXIDE LEVEL 23 MEQ/L (21-32); CHLORIDE LEVEL 109 MEQ/L (98-107); CREATININE FOR GFR 0.59 MG/DL (0.55-1.30); GLOMERULAR FILTRATION RATE > 60.0 (>60); GLUCOSE, FASTING 86 MG/DL (70-100); SODIUM LEVEL 140 MEQ/L (136-145)
[2019-03-28] MEDS: HEPARIN SOD (PORCINE) 5000 UNITS/ML VIAL SC SCH ×2 (08:12→20:00)
[2019-03-28] MEDS: OMEPRAZOLE 20 MG CAP PO SCH ×2 (08:12→20:00)
[2019-03-28] MEDS: TAMSULOSIN 0.4 MG CAP PO SCH (08:12)
--- NOTE | 2019-03-28 09:23 | REP ---
REASON: Pain. COMPARISON: 03/25/2019 The calcifications seen in the left upper quadrant on the prior exam lateral to the left transverse process of L2 is again seen, however, now it is between the left transverse processes of L2 and L3. The upright view shows this calcification again. There are no other changes. IMPRESSION: Left-sided calcification as described above, possibly representing a ureterolith. If clinically relevant obtain noncontrast enhanced stone protocol CT. Electronically Signed by David Ledesma DO 03/28/2019 09:26 A
--- NOTE | 2019-03-28 09:39 | IPNPDOC ---
Subjective Date Seen The patient was seen on 03/28/19. Subjective Chief Complaint/HPI Continues to complain of left flank pain when ever the pain medication is wearing off. lso has mild hematuria. No fever or chills, still has some nausea. Objective Physical Examination General Exam: Positive: Alert, Cooperative, No Acute Distress Eye Exam: Positive: PERRLA, Conjunctiva & lids normal, EOMI; Negative: Sclera icteric ENT Exam: Positive: Atraumatic Neck Exam: Positive: Supple; Negative: JVD Chest Exam: Positive: Clear to auscultation, Normal air movement Heart Exam: Positive: Tachycardic, Regular Rhythm, Normal S1, Normal S2; Negative: Murmurs, Rubs Abdomen Exam: Positive: Normal bowel sounds, Soft, Tenderness (left flank), Other (no guarding or rigidity, LAft CVA tenderness.); Negative: Hepatospenomegaly Extremity Exam: Positive: Normal pulses; Negative: Clubbing, Cyanosis, Edema Skin Exam: Positive: Nl turgor and temperature, Rash (multiple skin lesions consistent with psoriasis exacerbation) Neuro Exam: Positive: Normal Gait, Strength at 5/5 X4 ext Psych Exam: Positive: Mental status NL Assessment /Plan Assessment Patient is 28 years old female with past medical history of psoriasis, GERD, nephrolithiasis s/p left lithotripsy on 03/25/19 presented to the hospital with severe left flank pain with nausea. Patient stated that after lithotripsy which was done on 03/25/19 she started feeling left flank pain the next day. ER KUB was done and showed small stone of the left ureter, kidney ultrasound showed mild left kidney hydronephrosis. Acute Renal colic on left side with left ureteral calculus at the Left UPJ. Status post lithotripsy on the left for left renal stone on 03/25/19 Aggressive IV hydration Flomax Pain management Left Hydronephrosis due to obstructive uropathy Secondary to left ureter stone will probably resolve spontaneously after the stone fragments pass. Nephrolithiasis, ureteral stone We will check calcium level, uric acid, PTH We'll send ureter stone for analysis Plan/VTE VTE Prophylaxis Ordered?: Yes VS, I&O, 24H, Fishbone Vital Signs/I&O Vital Signs Date Time Temp Pulse Resp B/P (MAP) Pulse Ox O2 Delivery O2 Flow Rate FiO2 03/28/19 06:22 18 03/28/19 04:30 97.3 101 127/82 (97) 96 Room Air I&O- Last 24 Hours up to 6 AM 03/28/19 06:00 Intake Total 2064 ml Output Total 375 ml Balance 1689 ml Laboratory Data 24H LABS Laboratory Tests 2 03/27/19 19:17: Immature Granulocyte % (Auto) 0.4, Neutrophils (%) (Auto) 69.7H, Lymphocytes (%) (Auto) 20.5L, Monocytes (%) (Auto) 7.3H, Eosinophils (%) (Auto) 1.5, Basophils (%) (Auto) 0.6, Neutrophils # (Auto) 5.9, Lymphocytes # (Auto) 1.7, Monocytes # (Auto) 0.6, Eosinophils # (Auto) 0.1, Basophils # (Auto) 0.1, Nucleated Red Blood Cells % (auto) 0.0, Urine Color YELLOW, Urine Appearance CLOUDYH, Urine pH 5.0, Urine Specific [place] 1.027, Urine Protein 1+H, Urine Glucose (UA) NEGATIVE, Urine Ketones NEGATIVE, Urine Blood 3+H, Urine Nitrite NEGATIVE, Urine Bilirubin NEGATIVE, Urine Urobilinogen 0.2, Urine Leukocyte Esterase NEGATIVE, Urine WBC (Auto) 4H, Urine RBC (Auto) TNTCH, Urine Hyaline Casts (Auto) 0, Urine Bacteria (Auto) 1+H, Urine Squamous Epithelial Cells 7, Urine Mucus (Auto) SMALL, Urine Sperm (Auto) , Anion Gap 8, Glomerular Filtration Rate > 60.0, Uric Acid 5.5, Calcium Level 9.6, Phosphorus Level 4.9 03/27/19 20:13: POC Beta HCG, Quantitative < 5.0 03/27/19 23:59: Urine WBC (Auto) 5H, Urine RBC (Auto) TNTCH, Urine Hyaline Casts (Auto) 0, Urine Bacteria (Auto) 1+H, Urine Squamous Epithelial Cells 3, Urine Mucus (Auto) SMALL, Urine Sperm (Auto) 03/28/19 06:26: Nucleated Red Blood Cells % (auto) 0.0 CBC/BMP Laboratory Tests 03/27/19 19:17 03/28/19 06:26 IMAN SALMON MD Mar 28, 2019 07:07 VAL ANDRADE MD Mar 28, 2019 09:39
[2019-03-28] MEDS ORDERED: KETOROLAC 30 MG/ML VIAL (J1885) IV SCH (10:45)
[2019-03-28] MEDS: ONDANSETRON 4MG/2ML VIAL (J2405) IV SCH ×2 (11:03→17:33)
[2019-03-28] MEDS: KETOROLAC 30 MG/ML VIAL (J1885) IV SCH ×2 (11:03→17:33)
--- NOTE | 2019-03-28 11:19 | IPNPDOC ---
Subjective Date Seen The patient was seen on 03/28/19. Subjective Chief Complaint/HPI having episodes of renal colic with nausea.No fever or chills, Passed a stone this am however it was nt sent for analysis. Has family history of stone in mothr and sister. Objective Physical Examination General Exam: Positive: Alert, Cooperative, No Acute Distress Eye Exam: Positive: PERRLA, Conjunctiva & lids normal, EOMI; Negative: Sclera icteric ENT Exam: Positive: Atraumatic Neck Exam: Positive: Supple; Negative: JVD Chest Exam: Positive: Clear to auscultation, Normal air movement Heart Exam: Positive: Tachycardic, Regular Rhythm, Normal S1, Normal S2; Negative: Murmurs, Rubs Telemetry: Positive: Sinus Abdomen Exam: Positive: Normal bowel sounds, Soft, Tenderness (left flank), Other (no guarding or rigidity, Left CVA tenderness mild); Negative: Hepatospenomegaly Extremity Exam: Positive: Normal pulses; Negative: Clubbing, Cyanosis, Edema Skin Exam: Positive: Nl turgor and temperature, Rash (multiple skin lesions consistent with psoriasis exacerbation) Neuro Exam: Positive: Normal Gait, Strength at 5/5 X4 ext Psych Exam: Positive: Mental status NL Assessment /Plan Assessment Patient is 28 years old female with past medical history of psoriasis, GERD, nephrolithiasis s/p left lithotripsy on 03/25/19 presented to the hospital with severe left flank pain with nausea. Patient stated that after lithotripsy which was done on 03/25/19 she started feeling left flank pain the next day. ER KUB was done and showed small stone of the left ureter, kidney ultrasound showed mild left kidney hydronephrosis. Acute Renal colic on left side with left ureteral calculus at the Left UPJ. Status post lithotripsy on the left for left renal stone on 03/25/19 passed a stone fragment this am. Aggressive IV hydration, NPO. Flomax Pain management with ketorolac, percocet seen by urology . If pain and nausea does not resolve then will go to OR today. Left Hydronephrosis due to obstructive uropathy Secondary to left ureter stone fragments will probably resolve spontaneously after the stone fragments pass. Nephrolithiasis, ureteral stone We will check calcium level, uric acid, PTH We'll send ureter stone for analysis Morbid obesity complicating care. Plan/VTE VTE Prophylaxis Ordered?: Yes VS, I&O, 24H, Fishbone Vital Signs/I&O Vital Signs Date Time Temp Pulse Resp B/P (MAP) Pulse Ox O2 Delivery O2 Flow Rate FiO2 03/28/19 06:52 18 03/28/19 04:30 97.3 101 127/82 (97) 96 Room Air I&O- Last 24 Hours up to 6 AM 03/28/19 06:00 Intake Total 2064 ml Output Total 375 ml Balance 1689 ml Laboratory Data 24H LABS Laboratory Tests 2 03/27/19 19:17: Immature Granulocyte % (Auto) 0.4, Neutrophils (%) (Auto) 69.7H, Lymphocytes (%) (Auto) 20.5L, Monocytes (%) (Auto) 7.3H, Eosinophils (%) (Auto) 1.5, Basophils (%) (Auto) 0.6, Neutrophils # (Auto) 5.9, Lymphocytes # (Auto) 1.7, Monocytes # (Auto) 0.6, Eosinophils # (Auto) 0.1, Basophils # (Auto) 0.1, Nucleated Red Blood Cells % (auto) 0.0, Urine Color YELLOW, Urine Appearance CLOUDYH, Urine pH 5.0, Urine Specific [place] 1.027, Urine Protein 1+H, Urine Glucose (UA) NEGATIVE, Urine Ketones NEGATIVE, Urine Blood 3+H, Urine Nitrite NEGATIVE, Urine Bilirubin NEGATIVE, Urine Urobilinogen 0.2, Urine Leukocyte Esterase NEGATIVE, Urine WBC (Auto) 4H, Urine RBC (Auto) TNTCH, Urine Hyaline Casts (Auto) 0, Urine Bacteria (Auto) 1+H, Urine Squamous Epithelial Cells 7, Urine Mucus (Auto) SMALL, Urine Sperm (Auto) , Anion Gap 8, Glomerular Filtration Rate > 60.0, Uric Acid 5.5, Calcium Level 9.6, Phosphorus Level 4.9 03/27/19 20:13: POC Beta HCG, Quantitative < 5.0 03/27/19 23:59: Urine WBC (Auto) 5H, Urine RBC (Auto) TNTCH, Urine Hyaline Casts (Auto) 0, Urine Bacteria (Auto) 1+H, Urine Squamous Epithelial Cells 3, Urine Mucus (Auto) SMALL, Urine Sperm (Auto) 03/28/19 06:26: Nucleated Red Blood Cells % (auto) 0.0, Anion Gap 8, Glomerular Filtration Rate > 60.0, Calcium Level 9.0 CBC/BMP Laboratory Tests 03/27/19 19:17 03/28/19 06:26 IMAN SALMON MD Mar 28, 2019 11:19
[2019-03-28] MEDS: PROCHLORPERAZINE 10 MG/2 ML VIAL (J0780) IV PRN ×2 (11:37→20:00)
[2019-03-28 14:00] VITALS: BP 132/91
[2019-03-28] MEDS: PERCOCET 5MG/325MG TAB PO PRN (18:14)
[2019-03-28 19:52] VITALS: BP 126/80
[2019-03-29] MEDS: KETOROLAC 30 MG/ML VIAL (J1885) IV SCH ×2 (00:17→05:44)
[2019-03-29] MEDS: ONDANSETRON 4MG/2ML VIAL (J2405) IV SCH ×2 (00:17→05:44)
[2019-03-29] MEDS: NS 1,000 ML IV SCH (01:59)
[2019-03-29] MEDS: PERCOCET 5MG/325MG TAB PO PRN (02:00)
[2019-03-29 04:44] VITALS: BP 123/78
[2019-03-29 08:13] LABS: BLOOD UREA NITROGEN 6 MG/DL (7-18); CALCIUM LEVEL 8.6 MG/DL (8.5-10.1); CARBON DIOXIDE LEVEL 23 MEQ/L (21-32); CHLORIDE LEVEL 112 MEQ/L (98-107); CREATININE FOR GFR 0.59 MG/DL (0.55-1.30); GLOMERULAR FILTRATION RATE > 60.0 (>60); GLUCOSE, FASTING 78 MG/DL (70-100); POTASSIUM SERUM 3.7 MEQ/L (3.5-5.1); SODIUM LEVEL 142 MEQ/L (136-145)
[2019-03-29] MEDS ORDERED: PERCOCET 5MG/325MG TAB PO PRN (08:15)
[2019-03-29] MEDS ORDERED: ONDANSETRON 4 MG ORAL DISINTEGRATING TAB (Q0162 PER 1MG) PO PRN (08:15)
[2019-03-29 08:47] LABS: BASO % 0.5 % (0.0-1.0); EOS # 0.2 10^3/uL (0.0-0.5); EOS % 4.3 % (0.0-3.0); HEMATOCRIT 32.3 % (36.0-47.0); HEMOGLOBIN 10.7 g/dl (12.0-15.5); LYMPH # 1.9 10^3/uL (1.5-5.0); LYMPH % 33.1 % (24.0-44.0); MEAN CORPUSCULAR HEMOGLOBIN 31.4 pg (27.0-33.0); MEAN CORPUSCULAR HGB CONC 33.1 g/dl (32.0-36.5); MEAN CORPUSCULAR VOLUME 94.7 fl (80.0-96.0); MONO # 0.6 10^3/uL (0.0-0.8); MONO % 10.7 % (0.0-5.0); NEUTROPHILS # 2.9 10^3/uL (1.5-8.5); NEUTROPHILS % 51.2 % (36.0-66.0); PLATELET COUNT, AUTOMATED 176 10^3/uL (150-450); RED BLOOD COUNT 3.41 10^6/uL (4.00-5.40); WHITE BLOOD COUNT 5.6 10^3/uL (4.0-10.0)
[2019-03-29] MEDS: TAMSULOSIN 0.4 MG CAP PO SCH (08:59)
[2019-03-29] MEDS: HEPARIN SOD (PORCINE) 5000 UNITS/ML VIAL SC SCH (08:59)
[2019-03-29] MEDS: OMEPRAZOLE 20 MG CAP PO SCH (08:59)
[2019-03-29 11:20] LABS: PTH INTACT 29.6 PG/ML (18.5-88.0)
[2019-03-29 12:00] VITALS: BP 133/86
--- NOTE | 2019-03-29 12:38 | DS.PDOC ---
Discharge Summary General Date of Admission Mar 27, 2019 at 18:57 Date of Discharge 03/29/19 Discharge Summary PROCEDURES PERFORMED DURING STAY: [None]. DISCHARGE DIAGNOSES: Acute Renal Colic Left Ureteral stone passed Left hydronephrosis H/O left nephrolithiasis s/p lithotripsy on 03/25 Morbid obesity COMPLICATIONS/CHIEF COMPLAINT: Left Ureteral Calculus, Renal Colic On Left. HISTORY OF PRESENT ILLNESS: See History and physical HOSPITAL COURSE: This is a 28 years old female with past medical history of psoriasis, GERD, nephrolithiasis s/p left lithotripsy on 03/25/19 presented to the hospital with severe left flank pain with nausea. Patient stated that after lithotripsy which was done on 03/25/19 she started feeling left flank pain the next day. ER KUB was done and showed small stone of the left ureter, kidney ultrasound showed mild left kidney hydronephrosis. Acute Renal colic on left side with small left ureteral calculus at the Left UPJ. Status post lithotripsy on the left for left renal stone on 03/25/19 passed a stone fragments still having some hematuria. continue ibuprofen, percocet and flomax , cefdinir as per outpatient orders Follow up Urology Left Hydronephrosis due to obstructive uropathy Secondary to left ureter stone fragments will resolve spontaneously after the stone fragments pass. follow up urology Nephrolithiasis, ureteral stone Follow up uric acid, PTH Ureteral stone was not sent for analysis Morbid obesity complicating care. DISCHARGE MEDICATIONS: Please see below. ALLERGIES: Please see below. PHYSICAL EXAMINATION ON DISCHARGE: VITAL SIGNS: Please see below. General Exam: Positive: Alert, Cooperative, No Acute Distress Eye Exam: Positive: PERRLA, Conjunctiva & lids normal, EOMI; Negative: Sclera icteric ENT Exam: Positive: Atraumatic Neck Exam: Positive: Supple; Negative: JVD Chest Exam: Positive: Clear to auscultation, Normal air movement Heart Exam: Positive: Tachycardic, Regular Rhythm, Normal S1, Normal S2; Negative: Murmurs, Rubs Telemetry: Positive: Sinus Abdomen Exam: Positive: Normal bowel sounds, Soft, Tenderness (left flank), Other (no guarding or rigidity, Left CVA tenderness mild); Negative: Hepatospenomegaly Extremity Exam: Positive: Normal pulses; Negative: Clubbing, Cyanosis, Edema Skin Exam: Positive: Nl turgor and temperature, Rash (multiple skin lesions consistent with psoriasis exacerbation) Neuro Exam: Positive: Normal Gait, Strength at 5/5 X4 ext Psych Exam: Positive: Mental status NL LABORATORY DATA: Please see below. ACTIVITY: [As tolerated]. DIET: As tolerated DISCHARGE PLAN: Home DISCHARGE INSTRUCTIONS: Follow up Urology as per outpatient appointment. DISCHARGE CONDITION: [Stable]. TIME SPENT ON DISCHARGE: 35 minutes. Vital Signs/I&Os Vital Signs Date Time Temp Pulse Resp B/P (MAP) Pulse Ox O2 Delivery O2 Flow Rate FiO2 03/29/19 10:05 18 03/29/19 04:44 97.8 111 123/78 (93) 97 Room Air I&O- Last 24 Hours up to 6 AM 03/29/19 06:00 Intake Total 4080 ml Output Total 1535 ml Balance 2545 ml Laboratory Data Labs 24H Laboratory Tests 2 03/29/19 06:59: Immature Granulocyte % (Auto) 0.2, Neutrophils (%) (Auto) 51.2, Lymphocytes (%) (Auto) 33.1, Monocytes (%) (Auto) 10.7H, Eosinophils (%) (Auto) 4.3H, Basophils (%) (Auto) 0.5, Neutrophils # (Auto) 2.9, Lymphocytes # (Auto) 1.9, Monocytes # (Auto) 0.6, Eosinophils # (Auto) 0.2, Basophils # (Auto) 0.0, Nucleated Red Blood Cells % (auto) 0.0, Anion Gap 7L, Glomerular Filtration Rate > 60.0, Calcium Level 8.6 CBC/BMP Laboratory Tests 03/29/19 06:59 Discharge Medications Scheduled Cefdinir (Cefdinir) 300 Mg Capsule, 300 MG PO BID, (Reported) NEW RX, HAS NOT STARTED Omeprazole (Omeprazole) 40 Mg Capsule.dr, 40 MG PO BID, (Reported) Tamsulosin HCl (Flomax) 0.4 Mg Capsule, 0.4 MG PO DAILY, (Reported) Scheduled PRN Ibuprofen (Ibuprofen) 800 Mg Tablet, 800 MG PO TID PRN for PAIN, (Reported) Ondansetron HCl (Zofran) 4 Mg Tablet, 4 MG PO QID PRN for NAUSEA, (Reported) Oxycodone HCl/Acetaminophen (Oxycodone-Acetaminophen 5-325) 1 Each Tablet, 1 TAB PO QID PRN for PAIN, (Reported) Allergies Coded Allergies: morphine (Verified Adverse Reaction, Intermediate, "SEIZURE", 03/19/19) IMAN SALMON MD Mar 29, 2019 12:38
[2019-03-29] MEDS ORDERED: IBUPROFEN 800 MG TAB PO SCH (14:00)
== END 2019-03-29 13:30 | disposition home or self-care (01) ==
LOC: M ED 18:56 → M ED INP 18:57 → M MS4PR 23:29
PROVIDERS: ADMIT Internal Medicine; ATTEND Internal Medicine
DX: N23 Unspecified renal colic (principal); N20.1 Calculus of ureter; N13.39 Other hydronephrosis; Z98.890 Other specified postprocedural states; Z87.442 Personal history of urinary calculi; E66.01 Morbid (severe) obesity due to excess calories; R11.2 Nausea with vomiting, unspecified; L40.9 Psoriasis, unspecified; K21.9 Gastro-esophageal reflux disease without esophagitis; Z79.899 Other long term (current) drug therapy; Z79.2 Long term (current) use of antibiotics; Z88.5 Allergy status to narcotic agent
CPT/HCPCS: 36415; 74018; 76775; 80048; 81001; 83970; 84100; 84550; 84702; 85025; 85027; 96361; 96372; 96374; 96375; 96376; 99284; J0780; J1885; J2405; J2765; J3010

== ENCOUNTER → 2019-04-15 | Outpatient (REF) | payer BC ==
[~2019-04-15] MED LIST changes: +CEFD300CAP PO; +IBUP80TA PO; +ZOFR4TAB16 PO
== END ==
LOC: M SMT 13:18
PROVIDERS: ATTEND Nurse Practitioner Family
DX: N20.0 Calculus of kidney (principal)

== ENCOUNTER → 2019-04-18 | Outpatient (REF) | payer BC | LOC: M SFHCLERA 16:15 | PROVIDERS: ATTEND Nurse Practitioner Family | DX: R31.9 Hematuria, unspecified (principal) ==

== ENCOUNTER → 2019-05-05 | Outpatient (REF) | payer BC ==
[~2019-05-05] MED LIST changes: +PREV1CAP PO; +TAMS1CAP17 PO
== END ==
LOC: M LAB 15:39
PROVIDERS: ATTEND Urology
DX: N20.0 Calculus of kidney (principal)

== ENCOUNTER 2019-05-07 09:33 | Day surgery (SDC) | payer BC ==
[~2019-05-07] VITALS: Ht 160 cm; Wt 114.8 kg
[~2019-05-07 09:33] MED LIST changes: +EMLA CREAM 5GM (LIDOCAINE/PRILOCAINE) TOP PRN; +LR 1,000 ML IV ONE; +ceFAZolin SOD 2 GM in IV 1 EA IV ONE
[2019-05-07] MEDS ORDERED: ONDANSETRON 4MG/2ML VIAL (J2405) As Ordered ONE (09:59)
[2019-05-07] MEDS ORDERED: LIDOCAINE 2% INJ 100 MG/5 ML SDV (FOR ANES.) As Ordered ONE (09:59)
[2019-05-07] MEDS ORDERED: MIDAZOLAM INJ 2 MG/2 ML VIAL (J2250) As Ordered ONE (09:59)
[2019-05-07] MEDS ORDERED: PROPOFOL 200 MG/20 ML VIAL As Ordered ONE (09:59)
[2019-05-07] MEDS ORDERED: fentaNYL 100 MCG/2 ML INJECTION (J3010) As Ordered ONE ×2 (09:59→12:10)
[2019-05-07] MEDS ORDERED: dexameTHASONE 4 MG/ML 1ML VIAL (J1100) As Ordered ONE (09:59)
[2019-05-07] MEDS ORDERED: EMLA CREAM 5GM (LIDOCAINE/PRILOCAINE) As Ordered ONE (11:04)
[2019-05-07] MEDS ORDERED: CONRAY-60 60% 50ML VIAL (Q9961) As Ordered ONE (11:30)
[2019-05-07] MEDS ORDERED: KETOROLAC 60 MG/2 ML VIAL (J1885) As Ordered ONE (11:52)
[2019-05-07] MEDS ORDERED: ACETAMINOPHEN 1000MG 100ML IV BTL (OFIRMEV) (J0131 PER 10MG) As Ordered ONE (11:52)
--- NOTE | 2019-05-07 12:39 | REP ---
Retrograde pyelogram: Two views. History: Nephrolithiasis. 18 seconds of fluoroscopy time is reported. Findings: A sequence of two last image hold fluoroscopically obtained spot radiographs of the abdomen document left ureteral cannulation, contrast injection, and stent placement. Electronically Signed by Justino Joshi MD 05/07/2019 12:30 P
[2019-05-07] MEDS ORDERED: ONDANSETRON 4MG/2ML VIAL (J2405) IV PRN (13:00)
[2019-05-07] MEDS ORDERED: METOCLOPRAMIDE INJ 10MG/2ML VIAL (J2765) IV PRN (13:00)
[2019-05-07] MEDS ORDERED: LR 1,000 ML IV SCH (13:00)
[2019-05-07] MEDS ORDERED: PERCOCET 5MG/325MG TAB PO PRN ×2 (13:00→14:00)
[2019-05-07] MEDS ORDERED: fentaNYL 100 MCG/2 ML INJECTION (J3010) IV PRN (13:00)
--- NOTE | 2019-05-07 14:16 | RO ---
DATE OF PROCEDURE: 05/07/2018 PREPROCEDURE DIAGNOSIS: Left kidney and ureteral stones. POSTPROCEDURE DIAGNOSIS: Left kidney and ureteral stones. PROCEDURE: Cystoscopy, left ureteroscopy with basket extraction of stones, left retrograde pyelogram with intraoperative interpretation of images, left ureteral stent placement. SURGEON: Dr. Cedric Manning [employer]AT[employer] WORKER: None. ANESTHESIA: General. OPERATIVE INDICATIONS: This is a 28-year-old female who underwent a left extracorporeal shockwave lithotripsy about a month or two ago. Due to not passing all of her stones, she was brought back to the operating room today for the above listed procedure. DESCRIPTION OF PROCEDURE: The patient was brought to the operating room and general anesthesia was induced. Prophylactic antibiotics were infused. She was placed in dorsal lithotomy position and prepped and draped in the usual sterile fashion. A rigid cystoscope was inserted into the urethral meatus and advanced into the bladder. A guidewire was advanced up the left collecting system. I then advanced a short semirigid ureteroscope into the left collecting system and just at the level of the ureterovesical junction an obstructing 4-5 mm stone was seen. The stone was grasped with a basket and withdrawn. I then examined the more proximal ureter and no additional stones were seen within the ureter. I then advanced the ureteral access sheath over the wire into the left collecting system. I went up the access sheath with the flexible ureteroscope and examined the left kidney thoroughly. Within the lower pole calyx, two stones measuring approximately 3-4 mm in size were seen. These stones were grasped with a basket and withdrawn. Once I confirmed no additional stones remained, a retrograde pyelogram was performed and notable for mild to moderate left hydronephrosis with no extravasation. I then withdrew the ureteroscope along with the access sheath and no additional stones were seen within the ureter. I then utilized the wire to advance a 6 [place] x 22-32 cm JJ ureteral stent up into the left collecting system. The wire was removed and there were adequate curls of the stent in the left renal pelvis and in the bladder. The bladder was then emptied of all fluids and this marked the conclusion of the procedure. The patient was taken out of the dorsal lithotomy position, awakened from anesthesia and transported to the recovery room in stable condition. Estimated blood loss: 5 mL. Complications: None. Specimen: Kidney stone fragments. Plan: The patient will followup in the clinic in a few weeks for stent removal.
[2019-05-07 14:26] VITALS: BP 130/89
== END 2019-05-07 14:34 | disposition home or self-care (01) ==
LOC: M SDC 09:33
PROVIDERS: ATTEND Urology
DX: N20.0 Calculus of kidney (principal); N20.1 Calculus of ureter; K21.9 Gastro-esophageal reflux disease without esophagitis; L40.9 Psoriasis, unspecified; E66.9 Obesity, unspecified; Z88.5 Allergy status to narcotic agent; Z79.899 Other long term (current) drug therapy
CPT/HCPCS: 52332; 52352; 74420; 81025; 82360; 88300; C1769; C1894; C2617; J0131; J0690; J1100; J1885; J2250; J2405; J3010; Q9961

== ENCOUNTER → 2019-07-13 | Outpatient (CLI) | payer BC ==
[~2019-07-13] MED LIST changes: -EMLA CREAM 5GM (LIDOCAINE/PRILOCAINE) TOP PRN; -LR 1,000 ML IV ONE; -ceFAZolin SOD 2 GM in IV 1 EA IV ONE
== END ==
LOC: M LAB 16:57
PROVIDERS: ATTEND Dermatology
DX: Z51.81 Encounter for therapeutic drug level monitoring (principal); Z79.899 Other long term (current) drug therapy

== ENCOUNTER → 2019-09-01 | Outpatient (CLI) | payer BC ==
[2019-09-01 18:22] LABS: HCG, SERUM QUANTITATIVE < 1.0 MIU/ML; TOTAL 25(OH) VITAMIN D 13.8 NG/ML (30.0-100.0)
[2019-09-01 18:23] LABS: ESTRADIOL 424.2 PG/ML; FOLLICLE STIMULATING HORMONE 3.8 mIU/mL; LUTEINIZING HORMONE 4.8 mIU/mL
== END ==
LOC: M LAB 17:23
PROVIDERS: ATTEND Obstetrics & Gynecology Reproductive Endocrinology
DX: E28.9 Ovarian dysfunction, unspecified (principal)

== ENCOUNTER → 2020-02-08 | Outpatient (CLI) | payer BC ==
[2020-02-08 14:49] LABS: ESTRADIOL 164.5 PG/ML; PROGESTERONE 21.15 NG/ML
== END ==
LOC: M LAB 12:44
PROVIDERS: ATTEND Obstetrics & Gynecology Reproductive Endocrinology
DX: E28.9 Ovarian dysfunction, unspecified (principal)

== ENCOUNTER → 2020-02-14 | Outpatient (CLI) | payer BC ==
[2020-02-14 11:04] LABS: HCG, SERUM QUANTITATIVE < 1.0 MIU/ML
[2020-02-14 11:13] LABS: PROGESTERONE 30.38 NG/ML
== END ==
LOC: M LAB 09:29
PROVIDERS: ATTEND Obstetrics & Gynecology Reproductive Endocrinology
DX: Z32.00 Encounter for pregnancy test, result unknown (principal)

== ENCOUNTER 2020-04-03 18:59 | Emergency (ER) | payer BC ==
[~2020-04-03] VITALS: Ht 160 cm; Wt 113.4 kg
[2020-04-03] MEDS ORDERED: AMOX500C PO (21:04)
[2020-04-03 21:12] VITALS: BP 148/95
[2020-04-03] MEDS ORDERED: AMOXICILLIN 500 MG CAP PO ONE (21:15)
== END 2020-04-03 21:15 | disposition home or self-care (01) ==
LOC: M ED 20:41
DX: R30.0 Dysuria (principal); J02.0 Streptococcal pharyngitis; E66.9 Obesity, unspecified; K21.9 Gastro-esophageal reflux disease without esophagitis; Z87.442 Personal history of urinary calculi; Z88.5 Allergy status to narcotic agent

== ENCOUNTER → 2020-04-19 | Outpatient (CLI) | payer BC ==
[~2020-04-19] MED LIST changes: +AMOX500C PO
--- NOTE | 2020-04-19 16:56 | REP ---
INDICATION: CALCULUS OF KIDNEY. COMPARISON: Comparison radiograph April 15, 2019.. TECHNIQUE: KUB: Two views. FINDINGS: Bowel gas pattern is normal. Psoas margins and flank stripes are intact. There are clips in right upper quadrant consistent with a previous cholecystectomy. There is calcific material superimposed on the upper pole of the right kidney consistent with intrarenal nephrolithiasis. This is overlapping the 12th posterior rib. No definite intrarenal calculi are noted on the left. No ureteral calculi are apparent. IMPRESSION: Small calculi at the upper pole of the right kidney consistent with intrarenal nephrolithiasis on the right. <Electronically signed by Geoff Joshi > 04/19/20 [id number]
== END ==
LOC: M RAD 16:10
PROVIDERS: ATTEND Urology
DX: N20.0 Calculus of kidney (principal)

== ENCOUNTER → 2020-04-20 | Outpatient (REF) | payer BC ==
[2020-04-20 18:46] LABS: APPEARANCE, URINE HAZY (CLEAR); BACTERIA, URINE AUTO 1+ (NEGATIVE); BILIRUBIN, URINE AUTO NEGATIVE (NEGATIVE); BLOOD, URINE BLOOD 1+ (NEGATIVE); CALCIUM OXALATE CRYSTALS MODERATE; COLOR, URINE YELLOW (YELLOW); GLUCOSE, URINE (UA) AUTO NEGATIVE (NEGATIVE); KETONE, URINE AUTO NEGATIVE (NEGATIVE); LEUKOCYTE ESTERASE, URINE AUTO NEGATIVE (NEGATIVE); MUCUS, URINE SMALL (NEGATIVE); NITRITE, URINE AUTO NEGATIVE (NEGATIVE); PROTEIN, URINE AUTO NEGATIVE (NEGATIVE); RBC, URINE AUTO 3 /HPF (0-3); SPECIFIC GRAVITY URINE AUTO 1.019 (1.002-1.035); SQUAMOUS EPITHELIAL CELL UR AU 3 /HPF (0-6); UROBILINOGEN, URINE AUTO 0.2 mg/dL (0.0-2.0); WBC, URINE AUTO 1 /HPF (0-3)
== END ==
LOC: M SMT 16:47
PROVIDERS: ATTEND Nurse Practitioner Women's Health
DX: R31.9 Hematuria, unspecified (principal)

== ENCOUNTER → 2020-05-02 | Outpatient (CLI) | payer BC ==
--- NOTE | 2020-05-02 11:12 | REP ---
INDICATION: HEMATURIA, FLANK PAIN COMPARISON: 03/08/2019 TECHNIQUE: Axial noncontrast images from the lung bases to the pubic symphysis with coronal and sagittal reformations. This CT examination was performed using the following dose reduction techniques: Automated exposure control, adjustment of mA and/or kv according to the patient's size, and use of iterative reconstruction technique. FINDINGS: Right kidney includes 2-3 nonobstructing intrarenal calculi measuring between 2 mm and 4 mm without perinephric stranding, hydroureteronephrosis or obstructing ureteral calculus. Left kidney/ureter includes 1 mm nonobstructing renal calculus without perinephric stranding, hydroureteronephrosis or obstructing ureteral stones. Liver, spleen, pancreas, and bilateral adrenal glands are normal. Evidence for prior cholecystectomy. The enteric system is without obstruction or acute inflammatory process. Pelvis demonstrates normal bladder and age-appropriate uterus/adnexa. No pelvic fluid or ascites. No free air. No adenopathy. Abdominal aorta without aneurysm. Musculoskeletal structures are intact. Lung bases are clear. IMPRESSION: Nonobstructing bilateral nephroliths (right greater than left). <Electronically signed by Carlos Melendez > 05/02/20 [id number]
== END ==
LOC: M RAD 10:26
PROVIDERS: ATTEND Nurse Practitioner Women's Health
DX: N20.0 Calculus of kidney (principal); R31.9 Hematuria, unspecified

== ENCOUNTER → 2020-05-24 | Outpatient (REF) | payer BC ==
[2020-05-24 14:10] LABS: HEMOGLOBIN 13.8 g/dl (12.0-15.5); MEAN CORPUSCULAR HEMOGLOBIN 30.9 pg (27.0-33.0); MEAN CORPUSCULAR HGB CONC 32.9 g/dl (32.0-36.5); MEAN CORPUSCULAR VOLUME 94.2 fl (80.0-96.0); PLATELET COUNT, AUTOMATED 262 10^3/uL (150-450); RED BLOOD COUNT 4.46 10^6/uL (4.00-5.40); WHITE BLOOD COUNT 9.4 10^3/uL (4.0-10.0)
[2020-05-24 14:39] LABS: ALBUMIN 3.7 GM/DL (3.2-5.2); ALT/SGPT 33 U/L (12-78); BILIRUBIN,TOTAL 0.6 MG/DL (0.2-1.0); BLOOD UREA NITROGEN 14 MG/DL (7-18); CALCIUM LEVEL 9.4 MG/DL (8.5-10.1); CARBON DIOXIDE LEVEL 28 MEQ/L (21-32); CHLORIDE LEVEL 105 MEQ/L (98-107); CREATININE FOR GFR 0.64 MG/DL (0.55-1.30); GLOMERULAR FILTRATION RATE > 60.0 (>60); GLUCOSE, FASTING 85 MG/DL (70-100); POTASSIUM SERUM 3.9 MEQ/L (3.5-5.1); SODIUM LEVEL 140 MEQ/L (136-145)
[2020-05-24 14:46] LABS: HEPATITIS B SURFACE ANTIBODY NEGATIVE (POSITIVE)
[2020-05-24 14:56] LABS: HEPATITIS B SURFACE ANTIGEN NEGATIVE (NEGATIVE)
[2020-05-24 15:25] LABS: HEPATITIS B CORE ANTIBODY IGM NEGATIVE (NEGATIVE); HIV 1&2 SCREEN CENTAUR NEGATIVE (NEGATIVE)
[2020-05-24 15:34] LABS: HEPATITIS A ANTIBODY IGM NEGATIVE (NEGATIVE)
[2020-05-27 01:07] LABS: HEPATITIS B CORE ANTIBODY IGG Positive (Negative)
== END ==
LOC: M SFHCPLAZ 09:32
PROVIDERS: ATTEND Physician Assistant
DX: L40.9 Psoriasis, unspecified (principal); Z79.899 Other long term (current) drug therapy

== ENCOUNTER → 2020-06-05 | Outpatient (REF) | payer BC ==
[2020-06-05 18:46] LABS: ALBUMIN 3.8 GM/DL (3.2-5.2); ALT/SGPT 44 U/L (12-78); BILIRUBIN,TOTAL 0.3 MG/DL (0.2-1.0); BLOOD UREA NITROGEN 11 MG/DL (7-18); CALCIUM LEVEL 9.6 MG/DL (8.5-10.1); CARBON DIOXIDE LEVEL 29 MEQ/L (21-32); CHLORIDE LEVEL 105 MEQ/L (98-107); CREATININE FOR GFR 0.66 MG/DL (0.55-1.30); GLOMERULAR FILTRATION RATE > 60.0 (>60); GLUCOSE, FASTING 87 MG/DL (70-100); POTASSIUM SERUM 4.2 MEQ/L (3.5-5.1); SODIUM LEVEL 142 MEQ/L (136-145)
[2020-06-05 19:29] LABS: HEPATITIS B CORE ANTIBODY IGM NEGATIVE (NEGATIVE); HIV 1&2 SCREEN CENTAUR NEGATIVE (NEGATIVE)
[2020-06-08 15:11] LABS: HBV HBV DNA not detected IU/mL (.); HEPATITIS A IgG TOTAL Negative (Negative); HEPATITIS B CORE ANTIBODY IGG Negative (Negative); HEPATITIS BE ANTIBODY Negative (Negative); HEPATITIS BE ANTIGEN Negative (Negative)
== END ==
LOC: M SFHCPLAZ 15:40
PROVIDERS: ATTEND Internal Medicine Infectious Disease
DX: R76.8 Other specified abnormal immunological findings in serum (principal)

== ENCOUNTER → 2020-06-13 | Outpatient (CLI) | payer BC ==
--- NOTE | 2020-06-13 09:31 | REP ---
INDICATION: HEP B COMPARISON: 03/18/2014 TECHNIQUE: Real time graham scale ultrasound examination using curved array transducer. FINDINGS: Liver and pancreas are normal in appearance and without focal hepatic or pancreatic lesion identified. Patient is noted to be status post cholecystectomy. No biliary ductal dilatation is appreciated and the common bile duct measures 3.8 mm diameter. The right kidney is normal in reniform shape without hydronephrosis and measures 12.0 x 5.1 x 5.2 cm. No ascites in the visualized right upper quadrant. IMPRESSION: Normal limited right upper quadrant ultrasound. normal appearance of the liver. Evidence for prior cholecystectomy. <Electronically signed by Carlos Melendez > 06/13/20 [id number]
== END ==
LOC: M RAD 08:43
PROVIDERS: ATTEND Internal Medicine Infectious Disease
DX: R76.8 Other specified abnormal immunological findings in serum (principal)

== ENCOUNTER 2020-07-26 18:24 | Emergency (ER) | payer BC ==
[~2020-07-26] VITALS: Ht 160 cm; Wt 110.5 kg
[2020-07-26] MEDS ORDERED: TALT80IN5 (18:33)
[2020-07-26] MEDS ORDERED: LIDOCAINE 4% CREAM 5GM (LMX4) TOP ONE (22:15)
--- NOTE | 2020-07-26 23:15 | REPVR ---
PROCEDURE INFORMATION: Exam: US Duplex Left Lower Extremity Veins, Limited Exam date and time: 07/26/2020 10:27 PM Age: 30 years old Clinical indication: Pain; Leg, lower; Left; Additional info: Thigh and calf pain, numbness foot on/off TECHNIQUE: Imaging protocol: Real-time Duplex ultrasound of the Left Lower Extremity with 2-D graham scale, color Doppler flow and spectral waveform analysis with image documentation. Limited exam focused on the left lower extremity veins. COMPARISON: US Duplex, Ext,LOWER veins,unilat 11/26/2018 6:20 PM FINDINGS: Left deep veins: Unremarkable. The common femoral, femoral, proximal profunda femoral and popliteal veins are patent without thrombus. Normal Doppler waveforms. Normal compressibility and/or augmentation response. Left superficial veins: Unremarkable. Saphenofemoral junction is patent without thrombus. Soft tissues: Unremarkable. IMPRESSION: No evidence of deep vein thrombosis. Electronically signed by: Sam Kasper On 07/26/2020 23:15:33 PM
[2020-07-26] MEDS ORDERED: ASPE16CR TOP (23:39)
[2020-07-26 23:54] VITALS: BP 160/96
== END 2020-07-26 23:59 | disposition home or self-care (01) ==
LOC: M ED 18:24
DX: M79.605 Pain in left leg (principal); K21.9 Gastro-esophageal reflux disease without esophagitis; Z88.5 Allergy status to narcotic agent

== ENCOUNTER → 2020-08-06 | Outpatient (CLI) | payer BC ==
[~2020-08-06] MED LIST changes: +ASPE16CR TOP; +TALT80IN5
[2020-08-06 13:42] LABS: BASO # 0.1 10^3/uL (0.0-0.2); EOS # 0.2 10^3/uL (0.0-0.5); EOS % 2.9 % (0.0-3.0); HEMATOCRIT 41.7 % (36.0-47.0); LYMPH # 2.8 10^3/uL (1.5-5.0); LYMPH % 34.1 % (24.0-44.0); MEAN CORPUSCULAR HEMOGLOBIN 30.9 pg (27.0-33.0); MEAN CORPUSCULAR HGB CONC 33.6 g/dl (32.0-36.5); MEAN CORPUSCULAR VOLUME 92.1 fl (80.0-96.0); MONO # 0.5 10^3/uL (0.0-0.8); MONO % 5.6 % (2.0-8.0); NEUTROPHILS # 4.6 10^3/uL (1.5-8.5); PLATELET COUNT, AUTOMATED 259 10^3/uL (150-450); RED BLOOD COUNT 4.53 10^6/uL (4.00-5.40); WHITE BLOOD COUNT 8.2 10^3/uL (4.0-10.0)
[2020-08-06 14:08] LABS: ERYTHROCYTE SEDIMENTATION RATE 18 mm/hr (0-20)
[2020-08-06 14:13] LABS: ALBUMIN 3.8 GM/DL (3.2-5.2); ALT/SGPT 22 U/L (12-78); BILIRUBIN,TOTAL 0.4 MG/DL (0.2-1.0); BLOOD UREA NITROGEN 11 MG/DL (7-18); CALCIUM LEVEL 9.3 MG/DL (8.5-10.1); CARBON DIOXIDE LEVEL 29 MEQ/L (21-32); CHLORIDE LEVEL 107 MEQ/L (98-107); CREATININE FOR GFR 0.55 MG/DL (0.55-1.30); GLOMERULAR FILTRATION RATE > 60.0 (>60); GLUCOSE, FASTING 87 MG/DL (70-100); POTASSIUM SERUM 4.2 MEQ/L (3.5-5.1); SODIUM LEVEL 140 MEQ/L (136-145); TOTAL PROTEIN 7.2 GM/DL (6.4-8.2)
== END ==
LOC: M LAB 13:23
PROVIDERS: ATTEND Internal Medicine
DX: L40.50 Arthropathic psoriasis, unspecified (principal)

== ENCOUNTER → 2020-12-11 | Outpatient (CLI) | payer BC ==
[~2020-12-11] MED LIST changes: +OMEP40CA4 PO; -OMEP40CA97 PO
[2020-12-11 15:43] LABS: BASO # 0.1 10^3/uL (0.0-0.2); BASO % 0.8 % (0.0-1.0); EOS # 0.3 10^3/uL (0.0-0.5); EOS % 2.9 % (0.0-3.0); HEMOGLOBIN 13.8 g/dl (12.0-15.5); LYMPH % 33.1 % (24.0-44.0); MEAN CORPUSCULAR HEMOGLOBIN 31.1 pg (27.0-33.0); MEAN CORPUSCULAR HGB CONC 33.7 g/dl (32.0-36.5); MEAN CORPUSCULAR VOLUME 92.3 fl (80.0-96.0); MONO # 0.8 10^3/uL (0.0-0.8); MONO % 8.5 % (2.0-8.0); NEUTROPHILS # 4.9 10^3/uL (1.5-8.5); NEUTROPHILS % 54.1 % (36.0-66.0); PLATELET COUNT, AUTOMATED 234 10^3/uL (150-450); RED BLOOD COUNT 4.44 10^6/uL (4.00-5.40); WHITE BLOOD COUNT 9.1 10^3/uL (4.0-10.0)
[2020-12-11 16:08] LABS: ALBUMIN 3.7 GM/DL (3.2-5.2); ALT/SGPT 29 U/L (12-78); BILIRUBIN,DIRECT 0.1 MG/DL (0.0-0.2); BILIRUBIN,TOTAL 0.3 MG/DL (0.2-1.0); BLOOD UREA NITROGEN 9 MG/DL (7-18); CALCIUM LEVEL 9.7 MG/DL (8.5-10.1); CARBON DIOXIDE LEVEL 28 MEQ/L (21-32); CHLORIDE LEVEL 107 MEQ/L (98-107); CREATININE FOR GFR 0.48 MG/DL (0.55-1.30); GLOMERULAR FILTRATION RATE > 60.0 (>60); GLUCOSE, FASTING 75 MG/DL (70-100); POTASSIUM SERUM 4.2 MEQ/L (3.5-5.1); SODIUM LEVEL 141 MEQ/L (136-145); TOTAL PROTEIN 7.2 GM/DL (6.4-8.2)
== END ==
LOC: M LAB 15:07
PROVIDERS: ATTEND Internal Medicine
DX: L40.50 Arthropathic psoriasis, unspecified (principal)

== ENCOUNTER → 2021-03-07 | Outpatient (CLI) | payer BC ==
[2021-03-07 11:01] LABS: BASO # 0.1 10^3/uL (0.0-0.2); BASO % 0.6 % (0.0-1.0); EOS # 0.3 10^3/uL (0.0-0.5); EOS % 2.6 % (0.0-3.0); HEMATOCRIT 42.3 % (36.0-47.0); HEMOGLOBIN 14.2 g/dl (12.0-15.5); LYMPH # 2.5 10^3/uL (1.5-5.0); LYMPH % 23.1 % (24.0-44.0); MEAN CORPUSCULAR HEMOGLOBIN 31.2 pg (27.0-33.0); MEAN CORPUSCULAR HGB CONC 33.6 g/dl (32.0-36.5); MONO # 0.7 10^3/uL (0.0-0.8); MONO % 6.5 % (2.0-8.0); NEUTROPHILS # 7.3 10^3/uL (1.5-8.5); NEUTROPHILS % 66.6 % (36.0-66.0); PLATELET COUNT, AUTOMATED 264 10^3/uL (150-450); RED BLOOD COUNT 4.55 10^6/uL (4.00-5.40); WHITE BLOOD COUNT 10.9 10^3/uL (4.0-10.0)
[2021-03-07 11:32] LABS: ALBUMIN 3.4 GM/DL (3.2-5.2); ALT/SGPT 44 U/L (12-78); BILIRUBIN,DIRECT < 0.1 MG/DL (0.0-0.2); BILIRUBIN,TOTAL 0.5 MG/DL (0.2-1.0); BLOOD UREA NITROGEN 11 MG/DL (7-18); CARBON DIOXIDE LEVEL 25 MEQ/L (21-32); CHLORIDE LEVEL 110 MEQ/L (98-107); CREATININE FOR GFR 0.66 MG/DL (0.55-1.30); GLOMERULAR FILTRATION RATE > 60.0 (>60); GLUCOSE, FASTING 92 MG/DL (70-100); POTASSIUM SERUM 3.9 MEQ/L (3.5-5.1); SODIUM LEVEL 141 MEQ/L (136-145); TOTAL PROTEIN 7.1 GM/DL (6.4-8.2)
== END ==
LOC: M LAB 09:54
PROVIDERS: ATTEND Internal Medicine
DX: L40.50 Arthropathic psoriasis, unspecified (principal)

== ENCOUNTER 2021-07-09 16:55 | Emergency (ER) | payer BC ==
[~2021-07-09] VITALS: Ht 160 cm; Wt 118.3 kg
[~2021-07-09 16:55] MED LIST changes: -TALT80IN5; +TALT80IN5 SC
[2021-07-09] MEDS ORDERED: PREV15TA2 PO (17:22)
[2021-07-09] MEDS ORDERED: ONDANSETRON 4MG/2ML VIAL IV ONE (19:15)
[2021-07-09] MEDS ORDERED: KETOROLAC 30 MG/ML 1ML VIAL IV ONE (19:15)
[2021-07-09 19:37] LABS: BASO # 0.1 10^3/uL (0.0-0.2); BASO % 0.9 % (0.0-1.0); EOS # 0.2 10^3/uL (0.0-0.5); EOS % 2.5 % (0.0-3.0); HEMATOCRIT 40.8 % (36.0-47.0); HEMOGLOBIN 13.9 g/dl (12.0-15.5); LYMPH # 3.1 10^3/uL (1.5-5.0); LYMPH % 34.6 % (24.0-44.0); MEAN CORPUSCULAR HEMOGLOBIN 31.1 pg (27.0-33.0); MEAN CORPUSCULAR HGB CONC 34.1 g/dl (32.0-36.5); MEAN CORPUSCULAR VOLUME 91.3 fl (80.0-96.0); MONO # 0.6 10^3/uL (0.0-0.8); MONO % 6.3 % (2.0-8.0); PLATELET COUNT, AUTOMATED 245 10^3/uL (150-450); RED BLOOD COUNT 4.47 10^6/uL (4.00-5.40)
[2021-07-09 20:03] LABS: ALBUMIN 3.6 GM/DL (3.2-5.2); BILIRUBIN,DIRECT 0.1 MG/DL (0.0-0.2); BILIRUBIN,TOTAL 0.4 MG/DL (0.2-1.0); TOTAL PROTEIN 6.8 GM/DL (6.4-8.2)
[2021-07-09] MEDS ORDERED: FLOM0.4C39 PO (21:14)
[2021-07-09 21:36] VITALS: BP 154/82
== END 2021-07-09 21:41 | disposition home or self-care (01) ==
LOC: M ED 16:55
DX: N20.0 Calculus of kidney (principal); L40.50 Arthropathic psoriasis, unspecified; K21.9 Gastro-esophageal reflux disease without esophagitis; Z88.5 Allergy status to narcotic agent
CPT/HCPCS: 74176; 80047; 80076; 81001; 84702; 85025; 96374; 96375; 99284; J1885; J2405

== ENCOUNTER → 2021-07-11 | Outpatient (CLI) | payer BC ==
[~2021-07-11] MED LIST changes: +ACET-907 PO; +ONDA-83 PO; +PREV15TA2 PO; +VITMTA PO
[2021-07-11 16:53] LABS: BASO # 0.1 10^3/uL (0.0-0.2); BASO % 0.5 % (0.0-1.0); EOS # 0.2 10^3/uL (0.0-0.5); EOS % 2.5 % (0.0-3.0); HEMATOCRIT 40.7 % (36.0-47.0); HEMOGLOBIN 13.9 g/dl (12.0-15.5); LYMPH # 3.1 10^3/uL (1.5-5.0); LYMPH % 32.6 % (24.0-44.0); MEAN CORPUSCULAR HGB CONC 34.2 g/dl (32.0-36.5); MEAN CORPUSCULAR VOLUME 90.8 fl (80.0-96.0); MONO # 0.6 10^3/uL (0.0-0.8); MONO % 6.8 % (2.0-8.0); NEUTROPHILS # 5.4 10^3/uL (1.5-8.5); PLATELET COUNT, AUTOMATED 268 10^3/uL (150-450); RED BLOOD COUNT 4.48 10^6/uL (4.00-5.40); WHITE BLOOD COUNT 9.5 10^3/uL (4.0-10.0)
[2021-07-11 18:47] LABS: ALBUMIN 3.8 GM/DL (3.2-5.2); ALT/SGPT 25 U/L (12-78); BILIRUBIN,DIRECT < 0.1 MG/DL (0.0-0.2); BILIRUBIN,TOTAL 0.3 MG/DL (0.2-1.0); BLOOD UREA NITROGEN 11 MG/DL (7-18); CALCIUM LEVEL 9.2 MG/DL (8.5-10.1); CARBON DIOXIDE LEVEL 28 MEQ/L (21-32); CHLORIDE LEVEL 106 MEQ/L (98-107); CREATININE FOR GFR 0.58 MG/DL (0.55-1.30); GLOMERULAR FILTRATION RATE > 60.0 (>60); GLUCOSE, FASTING 78 MG/DL (70-100); POTASSIUM SERUM 4.1 MEQ/L (3.5-5.1); SODIUM LEVEL 138 MEQ/L (136-145); TOTAL PROTEIN 7.1 GM/DL (6.4-8.2)
== END ==
LOC: M LAB 15:00
PROVIDERS: ATTEND Internal Medicine
DX: L40.50 Arthropathic psoriasis, unspecified (principal)

== ENCOUNTER 2021-07-13 02:13 | Observation (INO) | payer BC ==
[~2021-07-13] VITALS: Ht 160 cm; Wt 116.1 kg
[~2021-07-13 02:13] MED LIST changes: -ACET-907 PO; -ONDA-83 PO; -VITMTA PO
[2021-07-13] MEDS ORDERED: ONDA-83 PO (02:23)
[2021-07-13 03:51] LABS: BASO # 0.1 10^3/uL (0.0-0.2); BASO % 0.6 % (0.0-1.0); EOS # 0.1 10^3/uL (0.0-0.5); EOS % 1.1 % (0.0-3.0); HEMOGLOBIN 14.1 g/dl (12.0-15.5); LYMPH # 2.3 10^3/uL (1.5-5.0); LYMPH % 19.9 % (24.0-44.0); MEAN CORPUSCULAR HEMOGLOBIN 30.9 pg (27.0-33.0); MEAN CORPUSCULAR HGB CONC 33.6 g/dl (32.0-36.5); MEAN CORPUSCULAR VOLUME 92.1 fl (80.0-96.0); MONO # 0.6 10^3/uL (0.0-0.8); MONO % 5.1 % (2.0-8.0); NEUTROPHILS # 8.3 10^3/uL (1.5-8.5); NEUTROPHILS % 72.7 % (36.0-66.0); PLATELET COUNT, AUTOMATED 282 10^3/uL (150-450); RED BLOOD COUNT 4.56 10^6/uL (4.00-5.40); WHITE BLOOD COUNT 11.4 10^3/uL (4.0-10.0)
[2021-07-13 04:15] LABS: HCG, SERUM QUALITATIVE NEGATIVE (NEGATIVE)
[2021-07-13 04:16] LABS: ALBUMIN 3.7 GM/DL (3.2-5.2); ALT/SGPT 31 U/L (12-78); BILIRUBIN,DIRECT 0.1 MG/DL (0.0-0.2); BILIRUBIN,TOTAL 0.3 MG/DL (0.2-1.0); BLOOD UREA NITROGEN 11 MG/DL (7-18); CALCIUM LEVEL 8.9 MG/DL (8.5-10.1); CARBON DIOXIDE LEVEL 27 MEQ/L (21-32); CHLORIDE LEVEL 105 MEQ/L (98-107); CREATININE FOR GFR 0.77 MG/DL (0.55-1.30); GLOMERULAR FILTRATION RATE > 60.0 (>60); GLUCOSE, FASTING 131 MG/DL (70-100); LIPASE 87 U/L (73-393); POTASSIUM SERUM 4.1 MEQ/L (3.5-5.1); SODIUM LEVEL 139 MEQ/L (136-145); TOTAL PROTEIN 7.5 GM/DL (6.4-8.2)
[2021-07-13] MEDS ORDERED: ONDANSETRON 4MG/2ML VIAL IV ONE (04:30)
[2021-07-13] MEDS ORDERED: KETOROLAC 30 MG/ML 1ML VIAL IV ONE (04:30)
[2021-07-13] MEDS ORDERED: cefTRIAXone SOD 2 GM in D5W MINI-BAG PLUS 50 ML IV ONE (04:40)
[2021-07-13] MEDS ORDERED: NS 1,000 ML IV ONE (04:40)
[2021-07-13 05:50] LABS: RSV AMPLIFICATION NEGATIVE (NEGATIVE)
[2021-07-13] MEDS ORDERED: VITMTA PO (08:06)
[2021-07-13] MEDS ORDERED: HOME MED LIST COMPLETE! XX SCH (08:10)
[2021-07-13 08:23] LABS: INR 0.92; PARTIAL THROMBOPLASTIN TIME 26.3 SECONDS (25.9-37.0); PROTHROMBIN TIME 12.8 SECONDS (12.7-14.5)
[2021-07-13] MEDS: ONDANSETRON 4MG/2ML VIAL IV PRN ×2 (10:34→18:02)
[2021-07-13] MEDS: NS 1,000 ML IV SCH ×2 (10:45→16:15)
[2021-07-13] MEDS: KETOROLAC 30 MG/ML 1ML VIAL IV PRN ×2 (10:45→19:04)
[2021-07-13 11:37] VITALS: BP 141/85
[2021-07-13] MEDS ORDERED: CONRAY-60 60% 50ML VIAL (Q9961) As Ordered ONE (15:56)
[2021-07-13] MEDS ORDERED: CIPROFLOXACIN 400 MG in IV 1 EA IV ONE (16:25)
[2021-07-13] MEDS ORDERED: CIPROFLOXACIN/D5W 400 MG/200 ML BAG (J0744) As Ordered ONE (16:32)
[2021-07-13] MEDS ORDERED: fentaNYL 100 MCG/2 ML INJECTION IV PRN (17:50)
[2021-07-13] MEDS ORDERED: LR 1,000 ML IV SCH (17:50)
[2021-07-13] MEDS ORDERED: ONDANSETRON 4MG/2ML VIAL IV PRN (17:50)
[2021-07-13] MEDS ORDERED: oxyCODONE 5MG TAB PO PRN (17:50)
[2021-07-13] MEDS ORDERED: HYDROMORPHONE HCL 0.5 MG/ 0.5 ML SYRINGE (J1170 PER 1) IV PRN (17:50)
[2021-07-13 18:02] VITALS: BP 164/79
[2021-07-13] MEDS ORDERED: ACET-907 PO (18:14)
== END 2021-07-13 20:05 | disposition home or self-care (01) ==
LOC: M ED 02:13 → M ED INP 02:14 → ENRESERV 08:37 → M MSPAV 11:39
PROVIDERS: ADMIT Internal Medicine; ATTEND Internal Medicine
DX: N13.2 Hydronephrosis with renal and ureteral calculous obstruction (principal); L40.50 Arthropathic psoriasis, unspecified; E66.9 Obesity, unspecified; Z79.899 Other long term (current) drug therapy; Z88.5 Allergy status to narcotic agent
CPT/HCPCS: 36415; 52356; 74176; 74420; 80048; 80076; 81001; 82365; 83605; 83690; 84703; 85025; 85610; 85730; 87040; 87631; 93041; 96365; 96375; 96376; 99284; C1769; C1894; C2617; J0696; J0744; J1885; J2405; Q9961

== ENCOUNTER 2021-07-26 13:35 | Emergency (ER) | payer BC ==
[~2021-07-26] VITALS: Ht 160 cm; Wt 106.6 kg
[~2021-07-26 13:35] MED LIST changes: +ACET-907 PO; +ONDA-83 PO; +VITMTA PO
[2021-07-26] MEDS ORDERED: PHEN-501 (13:43)
[2021-07-26] MEDS ORDERED: KETOROLAC 30 MG/ML 1ML VIAL IV ONE (14:30)
[2021-07-26] MEDS ORDERED: NS 1,000 ML IV ONE (14:30)
[2021-07-26 14:34] LABS: BILIRUBIN, URINE MANUAL OBSCURED (NEGATIVE); GLUCOSE, URINE (UA) MANUAL OBSCURED mg/dL (NEGATIVE); KETONE, URINE MANUAL OBSCURED mg/dL (NEGATIVE); UROBILINOGEN, URINE MANUAL OBSCURED mg/dl (NORMAL)
[2021-07-26 14:44] LABS: BACTERIA, URINE MOD AMOUNT; MUCUS, URINE SMALL AMOUNT (NEGATIVE); RBC, URINE TNTC /hpf (0-3); SQUAMOUS EPITHELIAL CELL URINE MOD AMOUNT /hpf (SMALL AMT); TRANSITIONAL EPI CELLS, URINE MOD AMOUNT /hpf
[2021-07-26 15:29] LABS: BASO # 0.1 10^3/uL (0.0-0.2); BASO % 0.7 % (0.0-1.0); EOS # 0.3 10^3/uL (0.0-0.5); EOS % 3.2 % (0.0-3.0); HEMATOCRIT 41.6 % (36.0-47.0); HEMOGLOBIN 14.3 g/dl (12.0-15.5); LYMPH # 3.1 10^3/uL (1.5-5.0); LYMPH % 35.1 % (24.0-44.0); MEAN CORPUSCULAR HEMOGLOBIN 30.9 pg (27.0-33.0); MEAN CORPUSCULAR HGB CONC 34.4 g/dl (32.0-36.5); MEAN CORPUSCULAR VOLUME 89.8 fl (80.0-96.0); MONO # 0.6 10^3/uL (0.0-0.8); MONO % 7.1 % (2.0-8.0); NEUTROPHILS # 4.6 10^3/uL (1.5-8.5); NEUTROPHILS % 53.4 % (36.0-66.0); PLATELET COUNT, AUTOMATED 269 10^3/uL (150-450); RED BLOOD COUNT 4.63 10^6/uL (4.00-5.40); WHITE BLOOD COUNT 8.7 10^3/uL (4.0-10.0)
[2021-07-26 17:21] VITALS: BP 132/81
[2021-07-26] MEDS ORDERED: KETO10TAB PO (17:21)
== END 2021-07-26 17:33 | disposition home or self-care (01) ==
LOC: M ED 13:35
DX: N23 Unspecified renal colic (principal); K21.9 Gastro-esophageal reflux disease without esophagitis; Z87.442 Personal history of urinary calculi; Z96.0 Presence of urogenital implants; Z79.899 Other long term (current) drug therapy; Z88.5 Allergy status to narcotic agent
CPT/HCPCS: 74176; 80047; 81000; 84702; 85025; 87086; 96361; 96374; 99284; J1885

== ENCOUNTER → 2021-11-28 | Outpatient (CLI) | payer BC ==
[~2021-11-28] MED LIST changes: +KETO10TAB PO; +PHEN-501
[2021-11-28 18:58] LABS: BASO # 0.1 10^3/uL (0.0-0.2); BASO % 0.7 % (0.0-1.0); EOS # 0.2 10^3/uL (0.0-0.5); HEMATOCRIT 40.8 % (36.0-47.0); HEMOGLOBIN 13.9 g/dl (12.0-15.5); LYMPH # 3.6 10^3/uL (1.5-5.0); LYMPH % 34.7 % (24.0-44.0); MEAN CORPUSCULAR HEMOGLOBIN 30.9 pg (27.0-33.0); MEAN CORPUSCULAR HGB CONC 34.1 g/dl (32.0-36.5); MEAN CORPUSCULAR VOLUME 90.7 fl (80.0-96.0); MONO # 0.8 10^3/uL (0.0-0.8); MONO % 7.5 % (2.0-8.0); NEUTROPHILS # 5.7 10^3/uL (1.5-8.5); NEUTROPHILS % 54.6 % (36.0-66.0); PLATELET COUNT, AUTOMATED 314 10^3/uL (150-450); WHITE BLOOD COUNT 10.4 10^3/uL (4.0-10.0)
[2021-11-28 19:22] LABS: ALBUMIN 3.5 GM/DL (3.2-5.2); ALT/SGPT 73 U/L (12-78); BILIRUBIN,DIRECT < 0.1 MG/DL (0.0-0.2); BILIRUBIN,TOTAL 0.2 MG/DL (0.2-1.0); BLOOD UREA NITROGEN 11 MG/DL (7-18); C REACTIVE PROTEIN QUANTITATIV 0.42 MG/DL (0.00-0.30); CALCIUM LEVEL 9.6 MG/DL (8.5-10.1); CARBON DIOXIDE LEVEL 24 MEQ/L (21-32); CHLORIDE LEVEL 108 MEQ/L (98-107); CREATININE FOR GFR 0.67 MG/DL (0.55-1.30); GLOMERULAR FILTRATION RATE > 60.0 (>60); GLUCOSE, FASTING 97 MG/DL (70-100); POTASSIUM SERUM 3.9 MEQ/L (3.5-5.1); SODIUM LEVEL 139 MEQ/L (136-145); TOTAL PROTEIN 7.5 GM/DL (6.4-8.2)
== END ==
LOC: M LAB 18:30
PROVIDERS: ATTEND Internal Medicine
DX: L40.50 Arthropathic psoriasis, unspecified (principal)

== ENCOUNTER → 2022-02-04 | Outpatient (CLI) | payer BC | LOC: M RAD 11:26 | PROVIDERS: ATTEND Urology | DX: N20.0 Calculus of kidney (principal) ==

== ENCOUNTER → 2022-02-27 | Outpatient (CLI) | payer BC ==
[2022-02-27 14:08] LABS: BASO # 0.1 10^3/uL (0.0-0.2); BASO % 0.8 % (0.0-1.0); EOS # 0.3 10^3/uL (0.0-0.5); EOS % 3.1 % (0.0-3.0); HEMOGLOBIN 14.9 g/dl (12.0-15.5); LYMPH # 3.1 10^3/uL (1.5-5.0); LYMPH % 35.1 % (24.0-44.0); MEAN CORPUSCULAR HEMOGLOBIN 30.6 pg (27.0-33.0); MEAN CORPUSCULAR HGB CONC 33.9 g/dl (32.0-36.5); MEAN CORPUSCULAR VOLUME 90.3 fl (80.0-96.0); MONO # 0.8 10^3/uL (0.0-0.8); NEUTROPHILS # 4.6 10^3/uL (1.5-8.5); NEUTROPHILS % 51.4 % (36.0-66.0); PLATELET COUNT, AUTOMATED 285 10^3/uL (150-450); RED BLOOD COUNT 4.87 10^6/uL (4.00-5.40); WHITE BLOOD COUNT 8.8 10^3/uL (4.0-10.0)
[2022-02-27 16:36] LABS: ALBUMIN 4.1 GM/DL (3.2-5.2); ALT/SGPT 50 U/L (12-78); BILIRUBIN,DIRECT 0.1 MG/DL (0.0-0.2); BILIRUBIN,TOTAL 0.4 MG/DL (0.2-1.0); BLOOD UREA NITROGEN 18 MG/DL (7-18); CALCIUM LEVEL 9.7 MG/DL (8.5-10.1); CARBON DIOXIDE LEVEL 28 MEQ/L (21-32); CHLORIDE LEVEL 102 MEQ/L (98-107); CREATININE FOR GFR 0.66 MG/DL (0.55-1.30); GLOMERULAR FILTRATION RATE > 60.0 (>60); GLUCOSE, FASTING 89 MG/DL (70-100); POTASSIUM SERUM 3.7 MEQ/L (3.5-5.1); SODIUM LEVEL 137 MEQ/L (136-145); TOTAL PROTEIN 8.2 GM/DL (6.4-8.2)
== END ==
LOC: M LAB 13:18
PROVIDERS: ATTEND Internal Medicine
DX: L40.50 Arthropathic psoriasis, unspecified (principal)

== ENCOUNTER → 2022-03-25 | Outpatient (REF) | payer BC ==
[2022-03-25 17:53] LABS: ALBUMIN 3.7 G/DL (3.2-5.2); ALT/SGPT 35 U/L (7.0-40); BILIRUBIN,TOTAL 0.3 MG/DL (0.3-1.2); BLOOD UREA NITROGEN 11 MG/DL (9-23); CALCIUM LEVEL 8.8 MG/DL (8.5-10.1); CARBON DIOXIDE LEVEL 24 MMOL/L (20-31); CHLORIDE LEVEL 105 MMOL/L (98-107); CREATININE FOR GFR 0.49 MG/DL (0.55-1.30); GLOMERULAR FILTRATION RATE > 60.0 (>60); GLUCOSE, FASTING 94 MG/DL (60-100); POTASSIUM SERUM 4.6 MMOL/L (3.5-5.1); SODIUM LEVEL 138 MMOL/L (136-145); THYROID STIMULATING HORMONE 2.224 uIU/ML (0.55-4.78); TOTAL 25(OH) VITAMIN D 14.2 NG/ML (20.0-100.0); TOTAL PROTEIN 6.9 G/DL (5.7-8.2)
[2022-03-25 20:12] LABS: HEMOGLOBIN A1c 4.9 % (4.0-6.0)
== END ==
LOC: M LAB REF 16:45
PROVIDERS: ATTEND Nurse Practitioner Family
DX: Z13.228 Encounter for screening for other metabolic disorders (principal)

== ENCOUNTER → 2022-04-12 | Outpatient (REF) | payer BC ==
[2022-04-12 15:01] LABS: BASO # 0.1 10^3/uL (0.0-0.2); BASO % 0.8 % (0.0-1.0); EOS # 0.3 10^3/uL (0.0-0.5); EOS % 2.8 % (0.0-3.0); HEMATOCRIT 45.7 % (36.0-47.0); HEMOGLOBIN 15.1 g/dl (12.0-15.5); LYMPH # 2.7 10^3/uL (1.5-5.0); LYMPH % 30.1 % (24.0-44.0); MEAN CORPUSCULAR HEMOGLOBIN 29.8 pg (27.0-33.0); MEAN CORPUSCULAR VOLUME 90.3 fl (80.0-96.0); MONO # 0.6 10^3/uL (0.0-0.8); MONO % 6.7 % (2.0-8.0); NEUTROPHILS # 5.3 10^3/uL (1.5-8.5); NEUTROPHILS % 59.2 % (36.0-66.0); PLATELET COUNT, AUTOMATED 325 10^3/uL (150-450); RED BLOOD COUNT 5.06 10^6/uL (4.00-5.40)
[2022-04-12 15:08] LABS: CHOLESTEROL RISK RATIO 3.02 (<5); HDL CHOLESTEROL 57.1 MG/DL (>40); LDL CHOLESTEROL 101.7 MG/DL (<100)
[2022-04-12 15:11] LABS: THYROID STIMULATING HORMONE 2.007 uIU/ML (0.55-4.78); TOTAL 25(OH) VITAMIN D 14.6 NG/ML (20.0-100.0)
== END ==
LOC: M LAB REF 14:25
PROVIDERS: ATTEND Nurse Practitioner Family
DX: Z13.228 Encounter for screening for other metabolic disorders (principal)

== ENCOUNTER → 2022-05-23 | Outpatient (CLI) | payer BC ==
[2022-05-23 15:10] LABS: BASO # 0.1 10^3/uL (0.0-0.2); EOS # 0.4 10^3/uL (0.0-0.5); HEMATOCRIT 44.5 % (36.0-47.0); HEMOGLOBIN 14.6 g/dl (12.0-15.5); LYMPH % 34.4 % (24.0-44.0); MEAN CORPUSCULAR HEMOGLOBIN 29.9 pg (27.0-33.0); MEAN CORPUSCULAR HGB CONC 32.8 g/dl (32.0-36.5); MEAN CORPUSCULAR VOLUME 91.2 fl (80.0-96.0); MONO # 0.6 10^3/uL (0.0-0.8); MONO % 6.8 % (2.0-8.0); NEUTROPHILS # 4.6 10^3/uL (1.5-8.5); NEUTROPHILS % 53.1 % (36.0-66.0); PLATELET COUNT, AUTOMATED 278 10^3/uL (150-450); RED BLOOD COUNT 4.88 10^6/uL (4.00-5.40); WHITE BLOOD COUNT 8.7 10^3/uL (4.0-10.0)
[2022-05-23 15:33] LABS: C REACTIVE PROTEIN QUANTITATIV < 0.40 MG/DL (<1.0)
[2022-05-23 15:34] LABS: BILIRUBIN,DIRECT 0.2 MG/DL (<0.4)
[2022-05-23 15:35] LABS: ALBUMIN 3.9 G/DL (3.2-5.2); ALKALINE PHOSPHATASE 113 U/L (46-116); ALT/SGPT 28 U/L (7.0-40); AST/SGOT 21 U/L (<34); BILIRUBIN,TOTAL 0.5 MG/DL (0.3-1.2); BLOOD UREA NITROGEN 12 MG/DL (9-23); CALCIUM LEVEL 9.4 MG/DL (8.5-10.1); CARBON DIOXIDE LEVEL 29 MMOL/L (20-31); CHLORIDE LEVEL 101 MMOL/L (98-107); CREATININE FOR GFR 0.61 MG/DL (0.55-1.30); GLOMERULAR FILTRATION RATE > 60.0 (>60); GLUCOSE, FASTING 84 MG/DL (60-100); POTASSIUM SERUM 3.8 MMOL/L (3.5-5.1); SODIUM LEVEL 138 MMOL/L (136-145); TOTAL PROTEIN 7.6 G/DL (5.7-8.2)
== END ==
LOC: M LAB 14:16
PROVIDERS: ATTEND Internal Medicine
DX: L40.50 Arthropathic psoriasis, unspecified (principal)

== ENCOUNTER → 2022-07-04 | Outpatient (REF) | payer BC | LOC: M LAB REF 11:30 | PROVIDERS: ATTEND Nurse Practitioner Family | DX: E55.9 Vitamin D deficiency, unspecified (principal) ==

== ENCOUNTER → 2022-07-04 | Outpatient (CLI) | payer BC ==
[2022-07-04 18:27] LABS: THYROID STIMULATING HORMONE 2.579 uIU/ML (0.55-4.78)
[2022-07-04 18:28] LABS: FREE T4 1.17 NG/DL (0.89-1.76); PROLACTIN 3.95 NG/ML
[2022-07-04 18:31] LABS: HCG, SERUM QUALITATIVE NEGATIVE (NEGATIVE)
[2022-07-04 19:02] LABS: HEMOGLOBIN A1c 5.2 % (4.0-6.0)
== END ==
LOC: M PLALAB 14:55
PROVIDERS: ATTEND Nurse Practitioner Family
DX: N91.2 Amenorrhea, unspecified (principal); N94.6 Dysmenorrhea, unspecified

== ENCOUNTER → 2022-07-11 | Outpatient (REF) | payer BC ==
[2022-07-11 15:08] LABS: BLOOD UREA NITROGEN 11 MG/DL (9-23); CALCIUM LEVEL 9.4 MG/DL (8.5-10.1); CARBON DIOXIDE LEVEL 28 MMOL/L (20-31); CHLORIDE LEVEL 104 MMOL/L (98-107); CREATININE FOR GFR 0.52 MG/DL (0.55-1.30); GLOMERULAR FILTRATION RATE > 60.0 (>60); GLUCOSE, FASTING 101 MG/DL (60-100); MAGNESIUM LEVEL 1.9 MG/DL (1.8-2.4); POTASSIUM SERUM 3.9 MMOL/L (3.5-5.1); SODIUM LEVEL 139 MMOL/L (136-145)
== END ==
LOC: M LAB REF 14:21
PROVIDERS: ATTEND Nurse Practitioner Family
DX: I10 Essential (primary) hypertension (principal)

== ENCOUNTER 2022-07-23 05:00 | Emergency (ER) | payer BC ==
[~2022-07-23] VITALS: Ht 160 cm; Wt 114.6 kg
[2022-07-23 05:03] VITALS: BP 151/91
[2022-07-23 05:45] LABS: BASO # 0.1 10^3/uL (0.0-0.2); BASO % 0.8 % (0.0-1.0); EOS # 0.3 10^3/uL (0.0-0.5); EOS % 2.3 % (0.0-3.0); HEMATOCRIT 42.2 % (36.0-47.0); HEMOGLOBIN 14.3 g/dl (12.0-15.5); LYMPH # 3.5 10^3/uL (1.5-5.0); LYMPH % 31.8 % (24.0-44.0); MEAN CORPUSCULAR HEMOGLOBIN 30.4 pg (27.0-33.0); MEAN CORPUSCULAR HGB CONC 33.9 g/dl (32.0-36.5); MEAN CORPUSCULAR VOLUME 89.6 fl (80.0-96.0); MONO # 0.8 10^3/uL (0.0-0.8); MONO % 7.1 % (2.0-8.0); NEUTROPHILS # 6.2 10^3/uL (1.5-8.5); NEUTROPHILS % 57.3 % (36.0-66.0); PLATELET COUNT, AUTOMATED 267 10^3/uL (150-450); RED BLOOD COUNT 4.71 10^6/uL (4.00-5.40); WHITE BLOOD COUNT 10.9 10^3/uL (4.0-10.0)
[2022-07-23 06:13] LABS: APPEARANCE, URINE HAZY (CLEAR); BACTERIA, URINE AUTO 1+ (NEGATIVE); BILIRUBIN, URINE AUTO NEGATIVE (NEGATIVE); BLOOD, URINE BLOOD NEGATIVE (NEGATIVE); COLOR, URINE YELLOW (YELLOW); GLUCOSE, URINE (UA) AUTO NEGATIVE (NEGATIVE); KETONE, URINE AUTO NEGATIVE (NEGATIVE); LEUKOCYTE ESTERASE, URINE AUTO NEGATIVE (NEGATIVE); MUCUS, URINE SMALL (NEGATIVE); NITRITE, URINE AUTO NEGATIVE (NEGATIVE); PROTEIN, URINE AUTO NEGATIVE (NEGATIVE); RBC, URINE AUTO 1 /HPF (0-3); SPECIFIC GRAVITY URINE AUTO 1.026 (1.002-1.035); SQUAMOUS EPITHELIAL CELL UR AU 2 /HPF (0-6); UROBILINOGEN, URINE AUTO 0.2 mg/dL (0.0-2.0); WBC, URINE AUTO 0 /HPF (0-3)
[2022-07-23 06:16] LABS: HCG, SERUM QUALITATIVE NEGATIVE (NEGATIVE)
[2022-07-23 06:23] LABS: ALBUMIN 3.6 G/DL (3.2-5.2); ALKALINE PHOSPHATASE 106 U/L (46-116); ALT/SGPT 32 U/L (7.0-40); AST/SGOT 21 U/L (<34); BILIRUBIN,TOTAL 0.5 MG/DL (0.3-1.2); BLOOD UREA NITROGEN 13 MG/DL (9-23); CARBON DIOXIDE LEVEL 24 MMOL/L (20-31); CHLORIDE LEVEL 104 MMOL/L (98-107); CREATININE FOR GFR 0.45 MG/DL (0.55-1.30); GLOMERULAR FILTRATION RATE > 60.0 (>60); GLUCOSE, FASTING 97 MG/DL (60-100); POTASSIUM SERUM 3.7 MMOL/L (3.5-5.1); SODIUM LEVEL 138 MMOL/L (136-145); TOTAL PROTEIN 6.8 G/DL (5.7-8.2)
[2022-07-23] MEDS ORDERED: KETOROLAC 30 MG/ML 1ML VIAL IV ONE (07:05)
[2022-07-23] MEDS ORDERED: NS 1,000 ML IV ONE (07:05)
[2022-07-23] MEDS ORDERED: ONDANSETRON 4MG 2ML VIAL IV ONE (07:05)
[2022-07-23] MEDS ORDERED: ISOVUE-370 76% 100ML VIAL As Ordered ONE (07:16)
[2022-07-23] MEDS ORDERED: IBUP-1022 PO (10:05)
== END 2022-07-23 10:17 | disposition home or self-care (01) ==
LOC: M ED 05:00
DX: R10.9 Unspecified abdominal pain (principal); R19.7 Diarrhea, unspecified; Z87.442 Personal history of urinary calculi; Z79.899 Other long term (current) drug therapy; Z88.5 Allergy status to narcotic agent
CPT/HCPCS: 74177; 80053; 81001; 84703; 85025; 96361; 96374; 96375; 99284; J1885; J2405; Q9967

== ENCOUNTER → 2022-08-12 | Outpatient (CLI) | payer BC ==
[~2022-08-12] MED LIST changes: -ASPE16CR TOP; +FLUT50SP17; -FLUTISP; +LIDO76.52 TOP
== END ==
LOC: M PLAIMG 12:55
PROVIDERS: ATTEND Urology
DX: Z87.442 Personal history of urinary calculi (principal); K59.00 Constipation, unspecified

== ENCOUNTER → 2022-09-02 | Outpatient (CLI) | payer BC ==
[2022-09-02 14:47] LABS: BASO # 0.1 10^3/uL (0.0-0.2); BASO % 0.7 % (0.0-1.0); EOS # 0.3 10^3/uL (0.0-0.5); EOS % 3.2 % (0.0-3.0); HEMATOCRIT 42.7 % (36.0-47.0); HEMOGLOBIN 14.6 g/dl (12.0-15.5); LYMPH % 31.1 % (24.0-44.0); MEAN CORPUSCULAR HEMOGLOBIN 31.5 pg (27.0-33.0); MEAN CORPUSCULAR HGB CONC 34.2 g/dl (32.0-36.5); MONO # 0.7 10^3/uL (0.0-0.8); MONO % 7.1 % (2.0-8.0); NEUTROPHILS # 5.5 10^3/uL (1.5-8.5); NEUTROPHILS % 57.4 % (36.0-66.0); PLATELET COUNT, AUTOMATED 254 10^3/uL (150-450); RED BLOOD COUNT 4.64 10^6/uL (4.00-5.40); WHITE BLOOD COUNT 9.6 10^3/uL (4.0-10.0)
[2022-09-02 15:16] LABS: C REACTIVE PROTEIN QUANTITATIV < 0.40 MG/DL (<1.0)
[2022-09-02 15:18] LABS: ALBUMIN 3.6 G/DL (3.2-5.2); ALKALINE PHOSPHATASE 105 U/L (46-116); ALT/SGPT 31 U/L (7.0-40); AST/SGOT 19 U/L (<34); BILIRUBIN,DIRECT 0.2 MG/DL (<0.4); BILIRUBIN,TOTAL 0.4 MG/DL (0.3-1.2); BLOOD UREA NITROGEN 12 MG/DL (9-23); CALCIUM LEVEL 9.3 MG/DL (8.5-10.1); CARBON DIOXIDE LEVEL 31 MMOL/L (20-31); CHLORIDE LEVEL 104 MMOL/L (98-107); GLOMERULAR FILTRATION RATE > 60.0 (>60); GLUCOSE, FASTING 86 MG/DL (60-100); SODIUM LEVEL 140 MMOL/L (136-145); TOTAL PROTEIN 7.2 G/DL (5.7-8.2)
== END ==
LOC: M LAB 13:54
PROVIDERS: ATTEND Internal Medicine
DX: L40.50 Arthropathic psoriasis, unspecified (principal)

== ENCOUNTER → 2022-09-09 | Outpatient (REF) | payer BC ==
[2022-09-09 14:06] LABS: BLOOD UREA NITROGEN 12 MG/DL (9-23); CALCIUM LEVEL 9.7 MG/DL (8.5-10.1); CARBON DIOXIDE LEVEL 28 MMOL/L (20-31); CHLORIDE LEVEL 102 MMOL/L (98-107); GLOMERULAR FILTRATION RATE > 60.0 (>60); GLUCOSE, FASTING 86 MG/DL (60-100); POTASSIUM SERUM 3.9 MMOL/L (3.5-5.1); SODIUM LEVEL 135 MMOL/L (136-145)
== END ==
LOC: M LAB REF 12:36
PROVIDERS: ATTEND Nurse Practitioner Family
DX: I10 Essential (primary) hypertension (principal); Z68.42 Body mass index [BMI] 45.0-49.9, adult

== ENCOUNTER → 2022-10-03 | Outpatient (REF) | payer BC ==
[2022-10-03 16:53] LABS: CHOLESTEROL RISK RATIO 2.82 (<5); HDL CHOLESTEROL 69.3 MG/DL (>40); LDL CHOLESTEROL 110.7 MG/DL (<100); NON-HDL-C 126.7 MG/DL
[2022-10-03 16:55] LABS: TOTAL 25(OH) VITAMIN D 22.9 NG/ML (20.0-100.0)
== END ==
LOC: M LAB REF 16:06
PROVIDERS: ATTEND Nurse Practitioner Family
DX: E78.5 Hyperlipidemia, unspecified (principal); E55.9 Vitamin D deficiency, unspecified

== ENCOUNTER 2022-12-02 16:04 | Emergency (ER) | payer BC ==
[~2022-12-02] VITALS: Ht 160 cm; Wt 112.8 kg
[2022-12-02 21:21] LABS: HEMATOCRIT 35.8 % (36.0-47.0); HEMOGLOBIN 11.9 g/dl (12.0-15.5); MEAN CORPUSCULAR HEMOGLOBIN 30.8 pg (27.0-33.0); MEAN CORPUSCULAR HGB CONC 33.2 g/dl (32.0-36.5); MEAN CORPUSCULAR VOLUME 92.7 fl (80.0-96.0); PLATELET COUNT, AUTOMATED 315 10^3/uL (150-450); RED BLOOD COUNT 3.86 10^6/uL (4.00-5.40); WHITE BLOOD COUNT 8.5 10^3/uL (4.0-10.0)
[2022-12-02 21:51] LABS: ALBUMIN 3.7 G/DL (3.2-5.2); ALKALINE PHOSPHATASE 74 U/L (46-116); ALT/SGPT 80 U/L (7.0-40); AST/SGOT 43 U/L (<34); BILIRUBIN,TOTAL 0.6 MG/DL (0.3-1.2); BLOOD UREA NITROGEN 9 MG/DL (9-23); CALCIUM LEVEL 9.3 MG/DL (8.5-10.1); CARBON DIOXIDE LEVEL 23 MMOL/L (20-31); CHLORIDE LEVEL 102 MMOL/L (98-107); CREATININE FOR GFR 0.54 MG/DL (0.55-1.30); GLOMERULAR FILTRATION RATE > 60.0 (>60); GLUCOSE, FASTING 86 MG/DL (60-100); POTASSIUM SERUM 3.7 MMOL/L (3.5-5.1); SODIUM LEVEL 137 MMOL/L (136-145); TOTAL PROTEIN 7.1 G/DL (5.7-8.2)
[2022-12-02 21:52] LABS: HCG, SERUM QUALITATIVE NEGATIVE (NEGATIVE)
[2022-12-03] MEDS ORDERED: PROV10TA PO (00:17)
[2022-12-03 00:22] VITALS: BP 133/85; TEMP 98.1; O2SAT 100
== END 2022-12-03 00:37 | disposition home or self-care (01) ==
LOC: M ED 16:04
DX: N93.8 Other specified abnormal uterine and vaginal bleeding (principal); E28.2 Polycystic ovarian syndrome; E66.9 Obesity, unspecified; I10 Essential (primary) hypertension; K21.9 Gastro-esophageal reflux disease without esophagitis; Z87.442 Personal history of urinary calculi; Z79.899 Other long term (current) drug therapy; Z88.5 Allergy status to narcotic agent

== ENCOUNTER → 2023-01-15 | Outpatient (CLI) | payer BC ==
[~2023-01-15] MED LIST changes: +PROV10TA PO
[2023-01-15 11:54] LABS: BASO # 0.1 10^3/uL (0.0-0.2); BASO % 0.8 % (0.0-1.0); EOS # 0.3 10^3/uL (0.0-0.5); EOS % 3.9 % (0.0-3.0); HEMATOCRIT 35.4 % (36.0-47.0); HEMOGLOBIN 11.3 g/dl (12.0-15.5); LYMPH # 2.5 10^3/uL (1.5-5.0); LYMPH % 28.9 % (24.0-44.0); MEAN CORPUSCULAR HEMOGLOBIN 27.6 pg (27.0-33.0); MEAN CORPUSCULAR HGB CONC 31.9 g/dl (32.0-36.5); MEAN CORPUSCULAR VOLUME 86.6 fl (80.0-96.0); MONO # 0.6 10^3/uL (0.0-0.8); MONO % 7.1 % (2.0-8.0); NEUTROPHILS # 5.1 10^3/uL (1.5-8.5); NEUTROPHILS % 58.8 % (36.0-66.0); PLATELET COUNT, AUTOMATED 309 10^3/uL (150-450); RED BLOOD COUNT 4.09 10^6/uL (4.00-5.40); WHITE BLOOD COUNT 8.6 10^3/uL (4.0-10.0)
[2023-01-15 12:09] LABS: ALBUMIN 3.4 G/DL (3.2-5.2); ALKALINE PHOSPHATASE 106 U/L (46-116); ALT/SGPT 33 U/L (7.0-40); AST/SGOT 20 U/L (<34); BILIRUBIN,DIRECT 0.1 MG/DL (<0.4); BILIRUBIN,TOTAL 0.3 MG/DL (0.3-1.2); BLOOD UREA NITROGEN 10 MG/DL (9-23); CALCIUM LEVEL 9.1 MG/DL (8.5-10.1); CARBON DIOXIDE LEVEL 27 MMOL/L (20-31); CHLORIDE LEVEL 104 MMOL/L (98-107); GLOMERULAR FILTRATION RATE > 60.0 (>60); GLUCOSE, FASTING 95 MG/DL (60-100); POTASSIUM SERUM 3.7 MMOL/L (3.5-5.1); SODIUM LEVEL 139 MMOL/L (136-145); TOTAL PROTEIN 6.7 G/DL (5.7-8.2)
[2023-01-16 08:50] LABS: C REACTIVE PROTEIN QUANTITATIV < 0.40 MG/DL (<1.0)
== END ==
LOC: M LAB 10:58
PROVIDERS: ATTEND Internal Medicine
DX: L40.50 Arthropathic psoriasis, unspecified (principal)

== ENCOUNTER → 2023-04-07 | Outpatient (CLI) | payer BC ==
[2023-04-07 14:47] LABS: BASO # 0.1 10^3/uL (0.0-0.2); BASO % 0.7 % (0.0-1.0); EOS # 0.3 10^3/uL (0.0-0.5); EOS % 3.6 % (0.0-3.0); HEMATOCRIT 37.4 % (36.0-47.0); HEMOGLOBIN 12.1 g/dl (12.0-15.5); LYMPH # 3.3 10^3/uL (1.5-5.0); LYMPH % 34.8 % (24.0-44.0); MEAN CORPUSCULAR HEMOGLOBIN 26.8 pg (27.0-33.0); MEAN CORPUSCULAR HGB CONC 32.4 g/dl (32.0-36.5); MEAN CORPUSCULAR VOLUME 82.7 fl (80.0-96.0); MONO # 0.7 10^3/uL (0.0-0.8); MONO % 6.9 % (2.0-8.0); NEUTROPHILS # 5.1 10^3/uL (1.5-8.5); NEUTROPHILS % 53.6 % (36.0-66.0); PLATELET COUNT, AUTOMATED 314 10^3/uL (150-450); RED BLOOD COUNT 4.52 10^6/uL (4.00-5.40); WHITE BLOOD COUNT 9.5 10^3/uL (4.0-10.0)
[2023-04-07 15:16] LABS: C REACTIVE PROTEIN QUANTITATIV < 0.40 MG/DL (<1.0)
[2023-04-07 15:18] LABS: ALBUMIN 3.7 G/DL (3.2-5.2); ALKALINE PHOSPHATASE 108 U/L (46-116); ALT/SGPT 22 U/L (7.0-40); AST/SGOT 11 U/L (<34); BILIRUBIN,DIRECT 0.2 MG/DL (<0.4); BILIRUBIN,TOTAL 0.4 MG/DL (0.3-1.2); BLOOD UREA NITROGEN 13 MG/DL (9-23); CALCIUM LEVEL 9.3 MG/DL (8.5-10.1); CARBON DIOXIDE LEVEL 29 MMOL/L (20-31); CHLORIDE LEVEL 101 MMOL/L (98-107); CREATININE FOR GFR 0.56 MG/DL (0.55-1.30); GLOMERULAR FILTRATION RATE > 60.0 (>60); GLUCOSE, FASTING 91 MG/DL (60-100); POTASSIUM SERUM 3.6 MMOL/L (3.5-5.1); SODIUM LEVEL 135 MMOL/L (136-145); TOTAL PROTEIN 7.1 G/DL (5.7-8.2)
== END ==
LOC: M LAB 14:05
PROVIDERS: ATTEND Internal Medicine
DX: L40.50 Arthropathic psoriasis, unspecified (principal)

== ENCOUNTER → 2023-07-24 | Outpatient (CLI) | payer BC ==
[~2023-07-24] MED LIST changes: -FLUT50SP17; +FLUTISP
[2023-07-24 15:11] LABS: BASO # 0.1 10^3/uL (0.0-0.2); BASO % 0.8 % (0.0-1.0); EOS # 0.4 10^3/uL (0.0-0.5); EOS % 3.6 % (0.0-3.0); HEMATOCRIT 42.4 % (36.0-47.0); LYMPH # 3.7 10^3/uL (1.5-5.0); LYMPH % 33.4 % (24.0-44.0); MEAN CORPUSCULAR HEMOGLOBIN 28.9 pg (27.0-33.0); MEAN CORPUSCULAR VOLUME 87.4 fl (80.0-96.0); MONO # 0.7 10^3/uL (0.0-0.8); MONO % 6.3 % (2.0-8.0); NEUTROPHILS # 6.2 10^3/uL (1.5-8.5); NEUTROPHILS % 55.3 % (36.0-66.0); PLATELET COUNT, AUTOMATED 316 10^3/uL (150-450); RED BLOOD COUNT 4.85 10^6/uL (4.00-5.40); WHITE BLOOD COUNT 11.2 10^3/uL (4.0-10.0)
[2023-07-24 15:35] LABS: C REACTIVE PROTEIN QUANTITATIV < 0.40 MG/DL (<1.0)
[2023-07-24 15:37] LABS: ALBUMIN 3.8 G/DL (3.2-5.2); ALKALINE PHOSPHATASE 118 U/L (46-116); ALT/SGPT 23 U/L (7.0-40); AST/SGOT 9 U/L (<34); BILIRUBIN,DIRECT 0.1 MG/DL (<0.4); BILIRUBIN,TOTAL 0.3 MG/DL (0.3-1.2); BLOOD UREA NITROGEN 15 MG/DL (9-23); CALCIUM LEVEL 10.4 MG/DL (8.5-10.1); CARBON DIOXIDE LEVEL 29 MMOL/L (20-31); CHLORIDE LEVEL 104 MMOL/L (98-107); CREATININE FOR GFR 0.58 MG/DL (0.55-1.30); GLOMERULAR FILTRATION RATE > 60.0 (>60); GLUCOSE, FASTING 94 MG/DL (60-100); SODIUM LEVEL 139 MMOL/L (136-145); TOTAL PROTEIN 7.4 G/DL (5.7-8.2)
== END ==
LOC: M LAB 14:30
PROVIDERS: ATTEND Internal Medicine
DX: L40.50 Arthropathic psoriasis, unspecified (principal)

== ENCOUNTER → 2023-08-27 | Outpatient (REF) | payer BC ==
[2023-08-27 13:57] LABS: BLOOD UREA NITROGEN 13 MG/DL (9-23); CALCIUM LEVEL 9.7 MG/DL (8.5-10.1); CARBON DIOXIDE LEVEL 29 MMOL/L (20-31); CHLORIDE LEVEL 104 MMOL/L (98-107); CREATININE FOR GFR 0.56 MG/DL (0.55-1.30); GLOMERULAR FILTRATION RATE > 60.0 (>60); GLUCOSE, FASTING 79 MG/DL (60-100); SODIUM LEVEL 138 MMOL/L (136-145); THYROID STIMULATING HORMONE 1.906 uIU/ML (0.55-4.78)
== END ==
LOC: M LAB REF 12:54
PROVIDERS: ATTEND Nurse Practitioner Family
DX: Z79.899 Other long term (current) drug therapy (principal); Z68.42 Body mass index [BMI] 45.0-49.9, adult; E66.9 Obesity, unspecified

== ENCOUNTER → 2023-10-17 | Outpatient (CLI) | payer BC ==
[~2023-10-17] MED LIST changes: +ONDA-282 PO; -ONDA4TAB6 PO
[2023-10-17 15:53] LABS: BASO # 0.1 10^3/uL (0.0-0.2); BASO % 0.7 % (0.0-1.0); EOS # 0.7 10^3/uL (0.0-0.5); EOS % 6.6 % (0.0-3.0); HEMATOCRIT 43.1 % (36.0-47.0); HEMOGLOBIN 14.5 g/dl (12.0-15.5); LYMPH # 3.3 10^3/uL (1.5-5.0); LYMPH % 31.8 % (24.0-44.0); MEAN CORPUSCULAR HEMOGLOBIN 29.8 pg (27.0-33.0); MEAN CORPUSCULAR HGB CONC 33.6 g/dl (32.0-36.5); MEAN CORPUSCULAR VOLUME 88.7 fl (80.0-96.0); MONO # 0.6 10^3/uL (0.0-0.8); MONO % 6.1 % (2.0-8.0); NEUTROPHILS # 5.7 10^3/uL (1.5-8.5); NEUTROPHILS % 54.2 % (36.0-66.0); PLATELET COUNT, AUTOMATED 284 10^3/uL (150-450); RED BLOOD COUNT 4.86 10^6/uL (4.00-5.40); WHITE BLOOD COUNT 10.5 10^3/uL (4.0-10.0)
[2023-10-17 16:23] LABS: C REACTIVE PROTEIN QUANTITATIV < 0.40 MG/DL (<1.0)
[2023-10-17 16:25] LABS: ALBUMIN 3.8 G/DL (3.2-5.2); ALKALINE PHOSPHATASE 116 U/L (46-116); ALT/SGPT 18 U/L (7.0-40); AST/SGOT < 8 U/L (<34); BILIRUBIN,DIRECT 0.2 MG/DL (<0.4); BILIRUBIN,TOTAL 0.5 MG/DL (0.3-1.2); BLOOD UREA NITROGEN 11 MG/DL (9-23); CALCIUM LEVEL 9.4 MG/DL (8.5-10.1); CARBON DIOXIDE LEVEL 28 MMOL/L (20-31); CHLORIDE LEVEL 104 MMOL/L (98-107); CREATININE FOR GFR 0.59 MG/DL (0.55-1.30); GLOMERULAR FILTRATION RATE > 60.0 (>60); GLUCOSE, FASTING 88 MG/DL (60-100); POTASSIUM SERUM 4.1 MMOL/L (3.5-5.1); SODIUM LEVEL 138 MMOL/L (136-145); TOTAL PROTEIN 7.4 G/DL (5.7-8.2)
== END ==
LOC: M LAB 15:14
PROVIDERS: ATTEND Internal Medicine
DX: L40.50 Arthropathic psoriasis, unspecified (principal)

== ENCOUNTER → 2023-10-20 | Outpatient (REF) | payer BC ==
[2023-10-20 18:31] LABS: BLOOD UREA NITROGEN 12 MG/DL (9-23); CARBON DIOXIDE LEVEL 28 MMOL/L (20-31); CHLORIDE LEVEL 105 MMOL/L (98-107); CREATININE FOR GFR 0.56 MG/DL (0.55-1.30); GLOMERULAR FILTRATION RATE > 60.0 (>60); GLUCOSE, FASTING 92 MG/DL (60-100); POTASSIUM SERUM 4.1 MMOL/L (3.5-5.1); SODIUM LEVEL 138 MMOL/L (136-145)
[2023-10-20 18:34] LABS: TOTAL 25(OH) VITAMIN D 13.8 NG/ML (20.0-100.0)
== END ==
LOC: M LAB REF 16:21
PROVIDERS: ATTEND Nurse Practitioner Family
DX: E55.9 Vitamin D deficiency, unspecified (principal); E88.819 Insulin resistance, unspecified

== ENCOUNTER → 2023-12-09 | Outpatient (CLI) | payer BC ==
[2023-12-09 15:24] LABS: HEMOGLOBIN A1c 5.1 % (4.0-6.0); PROLACTIN 17.38 NG/ML; THYROID STIMULATING HORMONE 2.439 uIU/ML (0.55-4.78)
[2023-12-11 01:33] LABS: DEHYDROEPIANDROSTERONE SULFATE 176 mcg/dL (19-237)
== END ==
LOC: M PLALAB 10:32
PROVIDERS: ATTEND Obstetrics & Gynecology
DX: N91.4 Secondary oligomenorrhea (principal)

== ENCOUNTER → 2024-01-10 | Outpatient (CLI) | payer BC ==
[2024-01-10 10:22] LABS: BASO # 0.1 10^3/uL (0.0-0.2); BASO % 0.5 % (0.0-1.0); EOS # 0.6 10^3/uL (0.0-0.5); EOS % 5.7 % (0.0-3.0); HEMATOCRIT 44.4 % (36.0-47.0); HEMOGLOBIN 15.2 g/dl (12.0-15.5); LYMPH # 3.3 10^3/uL (1.5-5.0); LYMPH % 30.6 % (24.0-44.0); MEAN CORPUSCULAR HEMOGLOBIN 30.8 pg (27.0-33.0); MEAN CORPUSCULAR HGB CONC 34.2 g/dl (32.0-36.5); MEAN CORPUSCULAR VOLUME 89.9 fl (80.0-96.0); MONO # 0.7 10^3/uL (0.0-0.8); MONO % 6.3 % (2.0-8.0); NEUTROPHILS % 56.6 % (36.0-66.0); PLATELET COUNT, AUTOMATED 306 10^3/uL (150-450); RED BLOOD COUNT 4.94 10^6/uL (4.00-5.40); WHITE BLOOD COUNT 10.6 10^3/uL (4.0-10.0)
[2024-01-10 10:44] LABS: C REACTIVE PROTEIN QUANTITATIV < 0.40 MG/DL (<1.0)
[2024-01-10 10:45] LABS: ALBUMIN 3.9 G/DL (3.2-5.2); ALKALINE PHOSPHATASE 106 U/L (46-116); ALT/SGPT 24 U/L (7.0-40); AST/SGOT 14 U/L (<34); BILIRUBIN,DIRECT 0.1 MG/DL (<0.4); BILIRUBIN,TOTAL 0.5 MG/DL (0.3-1.2); BLOOD UREA NITROGEN 14 MG/DL (9-23); CALCIUM LEVEL 9.6 MG/DL (8.5-10.1); CARBON DIOXIDE LEVEL 28 MMOL/L (20-31); CHLORIDE LEVEL 103 MMOL/L (98-107); CREATININE FOR GFR 0.61 MG/DL (0.55-1.30); GLOMERULAR FILTRATION RATE > 60.0 (>60); GLUCOSE, FASTING 92 MG/DL (60-100); POTASSIUM SERUM 4.1 MMOL/L (3.5-5.1); SODIUM LEVEL 135 MMOL/L (136-145); TOTAL PROTEIN 7.7 G/DL (5.7-8.2)
== END ==
LOC: M LAB 10:04
PROVIDERS: ATTEND Internal Medicine
DX: L40.50 Arthropathic psoriasis, unspecified (principal)

== ENCOUNTER → 2024-01-16 | Outpatient (CLI) | payer BC | LOC: M EKG 10:07 | PROVIDERS: ATTEND Nurse Practitioner Family | DX: R42 Dizziness and giddiness (principal); Z53.9 Procedure and treatment not carried out, unspecified reason ==

== ENCOUNTER → 2024-02-19 | Outpatient (REF) | payer BC | LOC: M LAB REF 17:21 | PROVIDERS: ATTEND Nurse Practitioner Family | DX: R42 Dizziness and giddiness (principal) ==

== ENCOUNTER → 2024-05-08 | Outpatient (CLI) | payer BC ==
[2024-05-08 13:11] LABS: BASO # 0.1 10^3/uL (0.0-0.2); BASO % 0.7 % (0.0-1.0); EOS # 0.5 10^3/uL (0.0-0.5); HEMOGLOBIN 12.5 g/dl (12.0-15.5); LYMPH # 2.6 10^3/uL (1.5-5.0); LYMPH % 28.4 % (24.0-44.0); MEAN CORPUSCULAR HEMOGLOBIN 31.5 pg (27.0-33.0); MEAN CORPUSCULAR HGB CONC 33.8 g/dl (32.0-36.5); MEAN CORPUSCULAR VOLUME 93.2 fl (80.0-96.0); MONO # 0.7 10^3/uL (0.0-0.8); MONO % 7.5 % (2.0-8.0); NEUTROPHILS # 5.1 10^3/uL (1.5-8.5); PLATELET COUNT, AUTOMATED 207 10^3/uL (150-450); RED BLOOD COUNT 3.97 10^6/uL (4.00-5.40)
[2024-05-08 13:15] LABS: ERYTHROCYTE SEDIMENTATION RATE 47 mm/hr (0-20)
[2024-05-08 13:37] LABS: ALBUMIN 3.3 G/DL (3.2-5.2); ALKALINE PHOSPHATASE 118 U/L (35-104); ALT/SGPT 25 U/L (7.0-40); AST/SGOT 18 U/L (<34); BILIRUBIN,DIRECT 0.1 MG/DL (<0.4); BILIRUBIN,TOTAL 0.3 MG/DL (0.3-1.2); BLOOD UREA NITROGEN 9 MG/DL (9-23); C REACTIVE PROTEIN QUANTITATIV 3.42 MG/DL (<1.0); CALCIUM LEVEL 8.8 MG/DL (8.5-10.1); CARBON DIOXIDE LEVEL 29 MMOL/L (20-31); CHLORIDE LEVEL 107 MMOL/L (98-107); CREATININE FOR GFR 0.48 MG/DL (0.55-1.30); GLOMERULAR FILTRATION RATE > 60.0 (>60); GLUCOSE, FASTING 89 MG/DL (60-100); POTASSIUM SERUM 3.7 MMOL/L (3.5-5.1); SODIUM LEVEL 143 MMOL/L (136-145); TOTAL PROTEIN 7.1 G/DL (5.7-8.2)
== END ==
LOC: M LAB 12:55
PROVIDERS: ATTEND Internal Medicine
DX: L40.50 Arthropathic psoriasis, unspecified (principal)

== ENCOUNTER 2024-08-15 22:30 | Emergency (ER) | payer BC ==
[~2024-08-15] VITALS: Ht 162.6 cm; Wt 117.5 kg
[2024-08-15 23:55] LABS: APPEARANCE, URINE CLOUDY (CLEAR); BACTERIA, URINE AUTO 3+ (NEGATIVE); BILIRUBIN, URINE AUTO NEGATIVE (NEGATIVE); BLOOD, URINE BLOOD 3+ (NEGATIVE); COLOR, URINE RED (YELLOW); GLUCOSE, URINE (UA) AUTO NEGATIVE (NEGATIVE); KETONE, URINE AUTO NEGATIVE (NEGATIVE); LEUKOCYTE ESTERASE, URINE AUTO NEGATIVE (NEGATIVE); MUCUS, URINE SMALL (NEGATIVE); NITRITE, URINE AUTO NEGATIVE (NEGATIVE); PROTEIN, URINE AUTO 2+ mg/dL (NEGATIVE); RBC, URINE AUTO TNTC /HPF (0-3); SPECIFIC GRAVITY URINE AUTO 1.028 (1.002-1.035); SQUAMOUS EPITHELIAL CELL UR AU 1 /HPF (0-6); UROBILINOGEN, URINE AUTO 0.2 mg/dL (0.0-2.0); WBC, URINE AUTO TNTC /HPF (0-3)
[2024-08-16 01:03] LABS: BASO # 0.1 10^3/uL (0.0-0.2); BASO % 0.9 % (0.0-1.0); EOS # 0.3 10^3/uL (0.0-0.5); EOS % 3.4 % (0.0-3.0); HEMATOCRIT 39.8 % (36.0-47.0); HEMOGLOBIN 13.4 g/dl (12.0-15.5); LYMPH # 3.3 10^3/uL (1.5-5.0); LYMPH % 36.5 % (24.0-44.0); MEAN CORPUSCULAR HGB CONC 33.7 g/dl (32.0-36.5); MEAN CORPUSCULAR VOLUME 92.1 fl (80.0-96.0); MONO # 0.6 10^3/uL (0.0-0.8); MONO % 6.6 % (2.0-8.0); NEUTROPHILS # 4.8 10^3/uL (1.5-8.5); NEUTROPHILS % 52.2 % (36.0-66.0); PLATELET COUNT, AUTOMATED 261 10^3/uL (150-450); RED BLOOD COUNT 4.32 10^6/uL (4.00-5.40); WHITE BLOOD COUNT 9.1 10^3/uL (4.0-10.0)
[2024-08-16 01:11] LABS: LIPASE 40 U/L (12-53)
[2024-08-16 01:13] LABS: ALBUMIN 3.5 G/DL (3.2-5.2); ALKALINE PHOSPHATASE 117 U/L (35-104); ALT/SGPT 28 U/L (7.0-40); AST/SGOT 21 U/L (<34); BILIRUBIN,DIRECT < 0.1 MG/DL (<0.4); BILIRUBIN,TOTAL 0.3 MG/DL (0.3-1.2); BLOOD UREA NITROGEN 14 MG/DL (9-23); CALCIUM LEVEL 8.9 MG/DL (8.5-10.1); CARBON DIOXIDE LEVEL 25 MMOL/L (20-31); CHLORIDE LEVEL 107 MMOL/L (98-107); CREATININE FOR GFR 0.61 MG/DL (0.55-1.30); GLOMERULAR FILTRATION RATE > 90.0 (>60); GLUCOSE, FASTING 96 MG/DL (60-100); POTASSIUM SERUM 4.4 MMOL/L (3.5-5.1); SODIUM LEVEL 141 MMOL/L (136-145)
[2024-08-16 01:22] LABS: HCG, SERUM QUALITATIVE NEGATIVE (NEGATIVE)
[2024-08-16] MEDS: NS (Normal Saline) 0.9% 1,000 ML IV ONE (03:33)
[2024-08-16] MEDS: KETOROLAC 30 MG/ML 1ML VIAL IV ONE (03:33)
[2024-08-16] MEDS: ONDANSETRON 4MG 2ML VIAL IV ONE (03:33)
[2024-08-16] MEDS ORDERED: CIPR-250 PO (05:04)
[2024-08-16 05:22] VITALS: BP 114/65; TEMP 97.2; O2SAT 98
[2024-08-16] MEDS: CIPROFLOXACIN 250MG TAB PO ONE (05:35)
== END 2024-08-16 05:39 | disposition home or self-care (01) ==
LOC: M ED 22:30
DX: R31.9 Hematuria, unspecified (principal); N20.0 Calculus of kidney; J98.11 Atelectasis; Z88.5 Allergy status to narcotic agent; Z87.442 Personal history of urinary calculi; Z79.2 Long term (current) use of antibiotics; Z79.899 Other long term (current) drug therapy; Z79.1 Long term (current) use of non-steroidal anti-inflammatories (NSAID)
CPT/HCPCS: 74176; 80048; 80076; 81001; 83690; 84703; 85025; 96361; 96374; 99283; J1885; J2405

== ENCOUNTER → 2024-08-19 | Outpatient (CLI) | payer BC ==
[~2024-08-19] MED LIST changes: +CIPR-250 PO
[2024-08-19 14:39] LABS: BASO # 0.1 10^3/uL (0.0-0.2); EOS # 0.4 10^3/uL (0.0-0.5); EOS % 5.3 % (0.0-3.0); HEMATOCRIT 41.7 % (36.0-47.0); HEMOGLOBIN 13.7 g/dl (12.0-15.5); LYMPH # 2.8 10^3/uL (1.5-5.0); LYMPH % 33.9 % (24.0-44.0); MEAN CORPUSCULAR HEMOGLOBIN 30.8 pg (27.0-33.0); MEAN CORPUSCULAR HGB CONC 32.9 g/dl (32.0-36.5); MEAN CORPUSCULAR VOLUME 93.7 fl (80.0-96.0); MONO # 0.6 10^3/uL (0.0-0.8); MONO % 7.3 % (2.0-8.0); NEUTROPHILS # 4.3 10^3/uL (1.5-8.5); NEUTROPHILS % 51.9 % (36.0-66.0); PLATELET COUNT, AUTOMATED 267 10^3/uL (150-450); RED BLOOD COUNT 4.45 10^6/uL (4.00-5.40); WHITE BLOOD COUNT 8.3 10^3/uL (4.0-10.0)
[2024-08-19 14:45] LABS: ERYTHROCYTE SEDIMENTATION RATE 20 mm/hr (0-20)
[2024-08-19 15:02] LABS: ALBUMIN 3.5 G/DL (3.2-5.2); ALKALINE PHOSPHATASE 111 U/L (35-104); ALT/SGPT 23 U/L (7.0-40); AST/SGOT 13 U/L (<34); BILIRUBIN,DIRECT 0.1 MG/DL (<0.4); BILIRUBIN,TOTAL 0.4 MG/DL (0.3-1.2); BLOOD UREA NITROGEN 11 MG/DL (9-23); C REACTIVE PROTEIN QUANTITATIV < 0.50 MG/DL (<1.0); CALCIUM LEVEL 9.2 MG/DL (8.5-10.1); CARBON DIOXIDE LEVEL 30 MMOL/L (20-31); CHLORIDE LEVEL 104 MMOL/L (98-107); CREATININE FOR GFR 0.56 MG/DL (0.55-1.30); GLOMERULAR FILTRATION RATE > 90.0 (>60); GLUCOSE, FASTING 89 MG/DL (60-100); SODIUM LEVEL 141 MMOL/L (136-145); TOTAL PROTEIN 7.1 G/DL (5.7-8.2)
== END ==
LOC: M LAB 14:00
PROVIDERS: ATTEND Internal Medicine
DX: L40.50 Arthropathic psoriasis, unspecified (principal)

== ENCOUNTER → 2024-12-17 | Outpatient (CLI) | payer BC ==
[~2024-12-17] MED LIST changes: -FLOM0.4C39 PO; +TAMS-18 PO
[2024-12-17 17:46] LABS: BASO # 0.1 10^3/uL (0.0-0.2); BASO % 0.6 % (0.0-1.0); EOS # 0.3 10^3/uL (0.0-0.5); EOS % 3.1 % (0.0-3.0); LYMPH # 3.4 10^3/uL (1.5-5.0); LYMPH % 36.5 % (24.0-44.0); MONO # 0.7 10^3/uL (0.0-0.8); MONO % 7.3 % (2.0-8.0); NEUTROPHILS # 4.8 10^3/uL (1.5-8.5); NEUTROPHILS % 52.1 % (36.0-66.0); PLATELET COUNT, AUTOMATED 235 10^3/uL (150-450)
[2024-12-17 17:53] LABS: ERYTHROCYTE SEDIMENTATION RATE 24 mm/hr (0-20)
[2024-12-17 18:12] LABS: ALT/SGPT 25 U/L (7.0-40); AST/SGOT 16 U/L (<34); C REACTIVE PROTEIN QUANTITATIV < 0.50 MG/DL (<1.0); CALCIUM LEVEL 9.2 MG/DL (8.5-10.1); CARBON DIOXIDE LEVEL 27 MMOL/L (20-31); CHLORIDE LEVEL 108 MMOL/L (98-107); CREATININE FOR GFR 0.48 MG/DL (0.55-1.30); GLOMERULAR FILTRATION RATE > 90.0 (>60); POTASSIUM SERUM 4.5 MMOL/L (3.5-5.1); SODIUM LEVEL 143 MMOL/L (136-145)
== END ==
LOC: M LAB 17:23
PROVIDERS: ATTEND Internal Medicine
DX: L40.50 Arthropathic psoriasis, unspecified (principal)